=== PATIENT | female | born 1960 | race Caucasian/White ===

== ENCOUNTER → 2017-05-01 | Outpatient (CLI) | payer BC ==
[~2017-05-01] MED LIST: AMT50; ATV/1 PO; CLON1TAB3 PO; DIVA1TAB86 PO; GABA-1218 PO; LEVOTHYROXINE PO; OMEP20CA59 PO; OXYC-57 PO; PRED-301 PO; PROP80CA7 PO; [UNRECOGNIZED DRUG - OTHER]; [UNRECOGNIZED DRUG - OTHER]
--- NOTE | 2017-05-01 13:06 | MAMMOGRAPHY REPORT ---
BILATERAL DIGITAL SCREENING MAMMOGRAM TOMOSYNTHESIS WITH CAD: 05/01/2017 CLINICAL HISTORY: Routine screening. TECHNIQUE: Breast tomosynthesis in addition to standard 2D mammography was performed. Current study was also evaluated with a Computer Aided Detection (CAD) system. COMPARISON: Comparison is made to exams dated: 03/09/2016 mammogram, 03/05/2015 mammogram, 4 mammogram, 03/03/2013 mammogram, 03/01/2012 mammogram, and 03/01/2011 mammogram - [facility]. BREAST COMPOSITION: There are scattered areas of fibroglandular density in both breasts. FINDINGS: The parenchymal pattern is unchanged. No developing mass, architectural distortion or clus ter of suspicious microcalcifications is seen in either breast. IMPRESSION: ACR BI-RADS CATEGORY 2: BENIGN There is no mammographic evidence of malignancy. A 1 year screening mammogram is recommended. The pa tient will receive written notification of the results. Approximately 10% of breast cancers are not detected with mammography. A negative mammographic report should not delay biopsy if a clinically suggestive mass is present. Nohelia De La Torre M.D. ay/:05/01/2017 11:08:07 Core Shaper: Johnathan ROSAS(R)(M), [facility] letter sent: Normal 1/2 BI-RADS Code: ACR BI-RADS Category 2: Benign
== END | disposition home or self-care (01) ==
LOC: C.MAMM 08:42
DX: Z12.31 Encounter for screening mammogram for malignant neoplasm of breast (principal)

== ENCOUNTER 2022-12-22 12:32 | Inpatient (IN) ==
[2022-12-22] MEDS ORDERED: SODIUM CHLORIDE 0.9% 500 ML IV STA (12:41)
[2022-12-22] MEDS ORDERED: SODIUM CHLORIDE 0.9% 1000ML 1,000 ML IV ONE ×2 (12:48→13:22)
[2022-12-22] MEDS ORDERED: ONDANSETRON INJ 2 MG/ML 2 ML VIAL IV STA (12:54)
--- NOTE | 2022-12-22 12:59 | Emergency Department Note ---
Impression & Plan Colon perforation, Abdominal pain, Acute hypotension ED Provider Note NAME: GARCIA NUGENT AGE: 62 SEX: F : 1960 ARRIVES VIA: Walk-In INFORMANT: Patient, ED PROVIDER(S): Corbin Jeong DO CHIEF COMPLAINT: Abdominal pain HPI: The patient is a 62-year-old female who presented to the emergency department for an evaluation of abdominal pain. The patient had acute onset abdominal pain prior to arrival. She was in her normal state of health last evening. She felt a very sharp pain initially but now has a diffuse abdominal pain. She complains of dizziness. She denies having any black or tarry stools. She denies having any chest pain or difficulty breathing. She has had no fevers recently. She has no history of similar pain in the past. She was brought directly back from triage because of hypotension. ROS: See above HPI for pertinent positives & negatives. A total of 10 systems reviewed and were otherwise negative. PAST MEDICAL HISTORY: See Below PAST SURGICAL HISTORY: See Below FAMILY HISTORY: See Below SOCIAL HISTORY: See Below HOME MEDICATIONS: See Below ALLERGIES: See Below VITALS: See Below PHYSICAL EXAMINATION: GENERAL: The patient is awake and alert. She is very anxious and appears to be in severe pain. EYES: The conjunctivae are clear. The pupils are round and reactive. EARS, NOSE, MOUTH AND THROAT: The nose is without any evidence of any deformity. The patient's lips are cyanotic. NECK: The neck is nontender and supple. RESPIRATORY: Normal respiratory effort is noted there is no evidence of wheezing rhonchi or rales CARDIOVASCULAR: Regular rate and rhythm noted there no murmurs rubs or gallops normal S1 normal S2. GASTROINTESTINAL: The abdomen is distended and diffusely tender. There is guarding diffusely. MUSCULOSKELETAL/EXTREMITIES: There is no evidence of gross deformity full range of motion is noted in the hips and shoulders. SKIN: There is no obvious evidence of any rash. There are no petechiae, pallor or cyanosis noted. NEUROLOGIC: Patient is awake alert and oriented x3 strength is symmetric patellar reflexes are 2+ bilaterally MEDICAL DECISION MAKING: The patient is a 62-year-old female who presented to the emergency department for evaluation of abdominal pain. The patient was brought directly from triage to room A1. The patient was hypotensive. The patient had some constipation but over the last 24 hours developed severe abdominal pain. The patient was treated with IV fluids and IV pain medication. She was also treated with IV antibiotics for presumed surgical abdomen after physical exam. I discussed the patient's laboratory and radiographic studies with her. I discussed her condition with the on-call general surgical group. They have agreed to evaluate the patient in the emergency department. After evaluation he felt the patient would be a good candidate for surgical intervention given her presentation as well as her CT findings. Triage Nursing notes reviewed. Prior medical records reviewed Vital Signs: reviewed and remarkable for initial hypotension. Differential diagnosis: Etiologies such as appendicitis, diverticulitis, obstruction, inflammatory bowel disease, renal colic, PUD, biliary pathology, pancreatitis, mesenteric ischemia, aortic pathology, infections, genitourinary, UTI, perforated viscus, as well as others were entertained. ER treatment provided: See below Diagnostics interpreted by me: ECG: EKG was obtained in the emergency department. My interpretation is normal sinus rhythm at 74 bpm. There is no ectopy. There is no acute ST segment abnormalities noted. This was compared to a tracing from December 05, 2011. No changes were noted. Cardiac Monitoring: An order was placed for continuous cardiac monitoring. The monitor shows a rate of 87 bpm with sinus rhythm. Laboratory studies: As stated above and show below. Imaging studies: See below. Radiographic imaging was reviewed by myself Consultation(s): I discussed this case with Shanika Romero who is on-call for general surgery. He will evaluate the patient in the emergency department ED COURSE: Procedures: none Critical Care: I have personally spent greater than 35 minutes of critical care time in the direct management of this patient. This includes bedside care, interpretation of diagnostic studies, and testing, discussion with consultants, patient, and family members, and other required patient management activities. This 35 minutes is in excess of all separately billable procedures. Past Med/Surg History Medical History Anemia Asthma Brachial plexus injury, left Chiari malformation type I Decompression completed 2011 Graves' disease HTN (hypertension) Hypothyroid Migraine Mixed irritable bowel syndrome Urinary frequency Vitamin D deficiency Surgical History S/P EZE-BSO (~1997) Family History Father Myocardial infarction Bladder cancer Mother Skin cancer Alzheimer disease Denies family history of Ovarian cancer Prostate cancer Breast cancer Colorectal cancer Social History Smoking Status: Never smoker Second Hand Exposure: No; Do You Dip or Chew Tobacco: No; Hx Alcohol Use: Yes Alcohol type: beer, wine and hard liquor Alcohol Intake Frequency: 2-3 x/Week Hx Substance Use: No Preferred Language: Citizen Of [place] Communication Ability: Effective Visual Impairment: Limited Hearing Ability: Normal marital status: Current Living Situation: Spouse current occupational status: unemployed How many Children do You have: 3 Feels Safe at Home: Yes Childhood Exposure to Second-Hand Smoke: Yes caffeine: Yes (2 coffees a day ) Dental Care, Regularly: Yes Physical Activity Frequency: Daily Physical Activity Frequency Comment: walks a lot Seatbelt Use: always Sunscreen Use: No Allergies Allergies Allergy/AdvReac Type Severity Reaction Status Date / Time Sulfa (Sulfonamide Allergy Unknown severe Unverified 01/30/22 09:55 Antibiotics) headache levothyroxine AdvReac Unknown tachycardia Unverified 01/30/22 09:55 Home Meds Home Medications Medication Instructions Recorded Confirmed cholecalciferol (vitamin D3) 25 25 mcg PO DAILY 01/30/22 01/30/22 mcg (1,000 unit) chewable tablet omega-3 fatty acids-fish oil 360 1 cap PO DAILY 01/30/22 01/30/22 mg-1,200 mg capsule (Fish Oil) polysaccharide iron complex 150 mg 150 mg PO .every other day 01/30/22 01/30/22 iron capsule (Poly-Iron) turmeric root extract 500 mg 500 mg PO BID 01/30/22 01/30/22 capsule levothyroxine 25 mcg tablet 12.5 mcg PO QAM 12/22/22 12/22/22 (Synthroid) Previous Rx's Medication Instructions Recorded amitriptyline 25 mg tablet 50 mg PO HS #180 tabs 01/30/22 oxybutynin chloride 5 mg tablet 5 mg PO BID #180 tabs 01/30/22 propranolol 80 mg capsule,24 80 mg PO DAILY #90 caps 02/07/22 hr,extended release Results & Data (ED) Vital Signs Vital Signs - 24 hr 12/22/22 12:37 12/22/22 13:20 12/22/22 12:49 Temperature 36.7 C Temperature Source Temporal Artery Scan Pulse Rate 80 88 74 Pulse Rate [Apical] Pulse Rate from SpO2 Sensor 74 Respiratory Rate 20 16 Respiratory Effort / Characteristics Respiratory Depth Respiratory Pattern Blood Pressure 64/45 L 118/76 Blood Pressure [Left Arm] Blood Pressure Mean 51 90 Blood Pressure Mean [Left Arm] Blood Pressure Position [Left Arm] Pulse Oximetry 100 98 Oxygen Delivery Method Room Air Sepsis Recent Fever Within 48 Hours No Sepsis New/Unexplained Change in Mental Status N/A Sepsis Action Taken by Nursing No Action Required 12/22/22 12:57 12/22/22 13:16 12/22/22 13:30 Temperature Temperature Source Pulse Rate 80 88 91 H Pulse Rate [Apical] Pulse Rate from SpO2 Sensor 90 Respiratory Rate 21 26 H 23 Respiratory Effort / Characteristics Respiratory Depth Respiratory Pattern Blood Pressure 121/78 142/84 H 132/99 Blood Pressure [Left Arm] Blood Pressure Mean 92 103 110 Blood Pressure Mean [Left Arm] Blood Pressure Position [Left Arm] Pulse Oximetry 98 Oxygen Delivery Method Sepsis Recent Fever Within 48 Hours Sepsis New/Unexplained Change in Mental Status Sepsis Action Taken by Nursing 12/22/22 13:45 12/22/22 14:15 12/22/22 14:30 Temperature Temperature Source Pulse Rate 88 86 92 H Pulse Rate [Apical] Pulse Rate from SpO2 Sensor 88 91 H 93 H Respiratory Rate 26 H 34 H 17 Respiratory Effort / Characteristics Respiratory Depth Respiratory Pattern Blood Pressure 142/61 H 136/82 127/75 Blood Pressure [Left Arm] Blood Pressure Mean 88 100 92 Blood Pressure Mean [Left Arm] Blood Pressure Position [Left Arm] Pulse Oximetry 98 100 96 Oxygen Delivery Method Sepsis Recent Fever Within 48 Hours Sepsis New/Unexplained Change in Mental Status Sepsis Action Taken by Nursing 12/22/22 14:49 12/22/22 14:46 12/22/22 14:57 Temperature 36.9 C Temperature Source Oral Pulse Rate 91 H 87 Pulse Rate [Apical] 89 Pulse Rate from SpO2 Sensor Respiratory Rate 20 29 H 30 H Respiratory Effort / Characteristics Non-Labored Spontaneous Respiratory Depth Normal Respiratory Pattern Regular Blood Pressure 126/78 115/73 Blood Pressure [Left Arm] 126/78 Blood Pressure Mean 94 87 Blood Pressure Mean [Left Arm] 94 Blood Pressure Position [Left Arm] Semi-fowlers Pulse Oximetry 95 Oxygen Delivery Method Room Air Sepsis Recent Fever Within 48 Hours Sepsis New/Unexplained Change in Mental Status Sepsis Action Taken by [facility] Medications Current Medication List: was personally reviewed by me Laboratory Data Attestation: I reviewed the patient's lab results. 12/22/22 12:54 12/22/22 12:47 Lab Results 12/22/22 12/22/22 12/22/22 Range/Units 12:47 12:48 12:54 WBC 4.64 L (4.8-10.8) K/ul RBC 4.53 (4.20-5.40) M/uL Hgb 15.2 (12.0-16.0) g/dl POC Hgb (12.0-16.0) g/dl Hct 42.0 (37.0-47.0) % POC Hct (37-47) % MCV 92.7 (80.0-100.0) fL MCH 33.6 (25.0-34.0) pg MCHC 36.2 H (32.0-36.0) g/dL RDW Std Deviation 40.1 (36.4-46.3) fL RDW Coeff of Janie 11.9 (11.5-14.5) % Plt Count 283 (130-400) K/uL MPV 9.8 (9.4-12.4) fL Immature Gran % (Auto) 0.0 % Neut % (Auto) 79.0 % Lymph % (Auto) 14.4 % [place] % (Auto) 4.5 % Eos % (Auto) 1.9 % Baso % (Auto) 0.2 % Neut # (Auto) 3.66 (1.40-6.50) K/uL Lymph # (Auto) 0.67 L (1.2-3.4) K/uL [place] # (Auto) 0.21 (0.11-0.59) K/uL Eos # (Auto) 0.09 (0-0.50) K/uL Baso # (Auto) 0.01 (0-0.2) K/uL Immature Gran # (Auto) 0.00 L (0.01-0.20) K/uL POC Sodium (135-144) mmol/L Sodium 135 L (136-145) mmol/L POC Potassium (3.3-5.0) mmol/L Potassium 3.7 (3.5-5.1) mmol/L POC Chloride (101-112) mmol/L Chloride 98 (98-107) mmol/L Carbon Dioxide 31 (21-32) mmol/L POC Total CO2 (24-31) mmol/L Anion Gap 6 (3-11) POC Anion Gap (16-25) mmol/L POC BUN (7-18) mg/dl BUN 18 (6-23) mg/dl Creatinine 1.06 (0.6-1.2) mg/dl POC Creatinine (0.6-1.3) mg/dl Est Cr Clr Drug Dosing Not Reportable Est GFR ( Amer) 64.7 ml/min Est GFR (Non-Af Amer) 55.8 ml/min BUN/Creatinine Ratio 17.0 (10-20) Glucose 183 H (70-99(Fasting)) mg/dl POC Glucose (other) (70-99) mg/dl Lactate (0.4-2.0) mmol/L Calcium 9.7 (8.6-10.3) mg/dl POC Ioniz Calcium Joan (1.12-1.32) mmol/l Total Bilirubin 0.4 (0.2-1.0) mg/dl AST 22 (13-39) U/L ALT 25 (7-52) U/L Alkaline Phosphatase 76 (34-104) U/L Troponin I High Sens 3.0 (0-14) pg/ml Total Protein 7.4 (6.0-8.3) gm/dl Albumin 4.5 (3.4-5.0) gm/dl Globulin 2.9 (2.5-4.0) gm/dl Albumin/Globulin Ratio 1.6 (0.9-2) Lipase 18 (11-82) U/L Blood Type A Positive Blood Type Recheck Antibody Screen NEGATIVE 12/22/22 12/22/22 12/22/22 Range/Units 12:57 13:19 13:53 WBC (4.8-10.8) K/ul RBC (4.20-5.40) M/uL Hgb (12.0-16.0) g/dl POC Hgb 15.3 (12.0-16.0) g/dl Hct (37.0-47.0) % POC Hct 45 (37-47) % MCV (80.0-100.0) fL MCH (25.0-34.0) pg MCHC (32.0-36.0) g/dL RDW Std Deviation (36.4-46.3) fL RDW Coeff of Janie (11.5-14.5) % Plt Count (130-400) K/uL MPV (9.4-12.4) fL Immature Gran % (Auto) % Neut % (Auto) % Lymph % (Auto) % [place] % (Auto) % Eos % (Auto) % Baso % (Auto) % Neut # (Auto) (1.40-6.50) K/uL Lymph # (Auto) (1.2-3.4) K/uL [place] # (Auto) (0.11-0.59) K/uL Eos # (Auto) (0-0.50) K/uL Baso # (Auto) (0-0.2) K/uL Immature Gran # (Auto) (0.01-0.20) K/uL POC Sodium 136 (135-144) mmol/L Sodium (136-145) mmol/L POC Potassium 3.7 (3.3-5.0) mmol/L Potassium (3.5-5.1) mmol/L POC Chloride 96 L (101-112) mmol/L Chloride (98-107) mmol/L Carbon Dioxide (21-32) mmol/L POC Total CO2 26 (24-31) mmol/L Anion Gap (3-11) POC Anion Gap 19.0 (16-25) mmol/L POC BUN 18 (7-18) mg/dl BUN (6-23) mg/dl Creatinine (0.6-1.2) mg/dl POC Creatinine 1.1 (0.6-1.3) mg/dl Est Cr Clr Drug Dosing Est GFR ( Amer) ml/min Est GFR (Non-Af Amer) ml/min BUN/Creatinine Ratio (10-20) Glucose (70-99(Fasting)) mg/dl POC Glucose (other) 183 H (70-99) mg/dl Lactate 1.2 (0.4-2.0) mmol/L Calcium (8.6-10.3) mg/dl POC Ioniz Calcium Joan 1.22 (1.12-1.32) mmol/l Total Bilirubin (0.2-1.0) mg/dl AST (13-39) U/L ALT (7-52) U/L Alkaline Phosphatase (34-104) U/L Troponin I High Sens (0-14) pg/ml Total Protein (6.0-8.3) gm/dl Albumin (3.4-5.0) gm/dl Globulin (2.5-4.0) gm/dl Albumin/Globulin Ratio (0.9-2) Lipase (11-82) U/L Blood Type Blood Type Recheck A Positive Antibody Screen Administered Medications Fentanyl Citrate (Fentanyl Citrate Pf 100 Mcg/2 Ml Vial) 50 mcg IV Q15M PRN PRN Reason: Pain Stop: 01/05/23 12:53 Last Admin: 12/22/22 14:24 Dose: 50 mcg Documented By: Admin: 12/22/22 13:36 Dose: 50 mcg Documented By: Admin: 12/22/22 13:00 Dose: 50 mcg Documented By: MICHELLE Discontinued Medications Sodium Chloride (Nss) 500 mls @ 999 mls/hr IV .Q31M STA Stop: 12/22/22 13:11 Last Admin: 12/22/22 13:29 Dose: 999 mls/hr Documented By: MICHELLE Sodium Chloride (Nss 1000ml) 1,000 mls @ 999 mls/hr IV .Q1H1M ONE Stop: 12/22/22 13:48 Last Infusion: 12/22/22 14:02 Dose: 0 mls/hr Documented By: Admin: 12/22/22 13:01 Dose: 999 mls/hr Documented By: MICHELLE Piperacillin Sod/Tazobactam Sod (Zosyn) 4.5 gm in 120 mls @ 240 mls/hr IV NOW ONE Stop: 12/22/22 13:46 Last Infusion: 12/22/22 13:59 Dose: 0 mls/hr Documented By: Admin: 12/22/22 13:29 Dose: 240 mls/hr Documented By: MICHELLE Sodium Chloride (Nss 1000ml) 1,000 mls @ 999 mls/hr IV .Q1H1M ONE Stop: 12/22/22 14:22 Last Infusion: 12/22/22 14:30 Dose: 0 mls/hr Documented By: Admin: 12/22/22 13:29 Dose: 999 mls/hr Documented By: MICHELLE Ioversol (Optiray 320 100ml) 94 ml IV ONCE ONE Stop: 12/22/22 13:17 Last Admin: 12/22/22 13:17 Dose: 94 ml Documented By: DANE Ondansetron HCl (Ondansetron Inj 2 Mg/Ml 2 Ml Vial) 4 mg IV NOW STA Stop: 12/22/22 12:55 Last Admin: 12/22/22 13:01 Dose: 4 mg Documented By: MICHELLE Imaging Data Attestation: I personally reviewed and interpreted this imaging study as follows: My Impression: CT of the abdomen and pelvis was obtained in the emergency department. My interpretation is dilated loops of bowel with some degree of constipation, free air was noted, final report below. Radiologist's Impression: Abdomen/Pelvis CT 12/22/22 12:54 CT SCAN OF THE ABDOMEN AND PELVIS WITH IV CONTRAST CLINICAL HISTORY: Generous abdominal pain. Hypotension. Nausea. Constipation. COMPARISON STUDY: Abdominal CT dated 05/10/2018 TECHNIQUE: Following the IV administration of 94 cc of Optiray 320, CT scan of the abdomen and pelvis is performed from the lung bases to the proximal femora. Images are reviewed in the axial, sagittal, and coronal planes. IV contrast was administered without complication. A dose lowering technique was utilized adhering to the principles of ALARA. CT DOSE: 938.18 mGy.cm FINDINGS: Lung bases: The heart is normal in size and without pericardial effusion. The lung bases are clear noting dependent atelectasis. The distal esophagus is distended and filled with fluid. Liver: The contrast-enhanced liver is normal in size, contour, and attenuation. There is no intrahepatic biliary ductal dilatation. The hepatic veins and portal veins are patent. Gallbladder: Unremarkable. Spleen: Normal in size and attenuation. Pancreas: Moderately atrophic and grossly unremarkable. Adrenal glands: Unremarkable. Kidneys: The contrast enhanced kidneys are normal in size and without hydronephrosis. The kidneys enhance symmetrically. Abdominal vasculature: The abdominal aorta is normal in course and caliber noting mild atherosclerotic calcification. Bowel: There is moderate to severe constipation. There is significant wall thickening and mucosal hyperemia involving the rectosigmoid colon. There is pneumatosis of the rectosigmoid with adjacent intraperitoneal free air. Findings suggest a severe stercoral proctocolitis. Perforation is not excluded. The mesenteric vessels are patent. The appendix is well-visualized and normal. The small bowel loops are normal in caliber with no evidence of obstruction Peritoneum: There is a small volume of perihepatic and pelvic ascites. There are foci of intraperitoneal free air in the upper pelvis and around the rectosigmoid. Lymphadenopathy: None. Pelvic viscera: The bladder is normal as visualized. The uterus is surgically absent. No adnexal lesion is seen. Skeletal structures: The skeletal structures are osteopenic. There is [id number] lumbosacral spondylosis. No lytic or blastic lesions are seen. IMPRESSION: 1. Moderate to severe constipation with evidence of a severe stercoral proctocolitis. 2. There are significant pneumatosis intestinalis involving the rectosigmoid colon with adjacent foci of intraperitoneal free air. There are also foci of free air seen more superiorly in the upper pelvis. Although free air can potentially be seen with pneumatosis intestinalis, a rectosigmoid perforation is the diagnosis of exclusion. 3. Small volume abdominopelvic ascites. 4. The distal esophagus is distended and filled with fluid. Note that this may place the patient at risk for aspiration. 5. Additional findings as above. ACT 112: Negative or not required by law. Electronically signed by: Gabe Calvin M.D. 12/22/2022 1:43 PM Discharge Plan Visit Data Chief Complaint: Abdominal Pain Stated Complaint: ABD PAIN,LIGHTHEADED,NAUSEA ED Provider: Corbin Jeong Discharge Problem: Colon perforation, Abdominal pain, Acute hypotension Patient Disposition: Being Evaluated by Surgeon Discharge Instructions Interventions: ED Discharge Assessment Last Done: 12/22/22 15:03
[2022-12-22] MEDS: fentaNYL citrate PF 100 MCG/2 ML VIAL IV PRN ×5 (13:00→17:45)
[2022-12-22 13:09] LABS: iSTAT Creatinine 1.1 mg/dl (0.6-1.3); iSTAT Hemoglobin 15.3 g/dl (12.0-16.0); iSTAT Ionized Calcium 1.22 mmol/l (1.12-1.32); iSTAT Potassium 3.7 mmol/L (3.3-5.0)
[2022-12-22] MEDS ORDERED: OPTIRAY 320 100ml IV ONE (13:16)
[2022-12-22] MEDS ORDERED: PIPERACILLIN/TAZOBACTAM 4.5 GM/120 ML BAG IV ONE (13:17)
[2022-12-22 13:18] LABS: Basophils # (auto) 0.01 K/uL (0-0.2); Basophils % (auto) 0.2 %; Eosinophils # (auto) 0.09 K/uL (0-0.50); Eosinophils % (auto) 1.9 %; Hemoglobin 15.2 g/dl (12.0-16.0); Lymphocytes # (auto) 0.67 K/uL (1.2-3.4); Lymphocytes % (auto) 14.4 %; Mean Corpuscular Hemoglobin 33.6 pg (25.0-34.0); Mean Corpuscular Hgb Conc 36.2 g/dL (32.0-36.0); Mean Corpuscular Volume 92.7 fL (80.0-100.0); Mean Platelet Volume 9.8 fL (9.4-12.4); Monocytes # (auto) 0.21 K/uL (0.11-0.59); Monocytes % (auto) 4.5 %; Neutrophils # (auto) 3.66 K/uL (1.40-6.50); Platelet Count 283 K/uL (130-400); RDW Coefficient of Variation 11.9 % (11.5-14.5); RDW Standard Deviation 40.1 fL (36.4-46.3); Red Blood Count 4.53 M/uL (4.20-5.40); White Blood Count 4.64 K/ul (4.8-10.8)
[2022-12-22 13:31] LABS: Alanine Aminotransferase 25 U/L (7-52); Albumin Globulin Ratio 1.6 (0.9-2); Albumin Level 4.5 gm/dl (3.4-5.0); Alkaline Phosphatase 76 U/L (34-104); Anion Gap 6 (3-11); Aspartate Aminotransferase 22 U/L (13-39); Bilirubin,Total 0.4 mg/dl (0.2-1.0); Blood Urea Nitrogen 18 mg/dl (6-23); Calcium 9.7 mg/dl (8.6-10.3); Carbon Dioxide 31 mmol/L (21-32); Chloride 98 mmol/L (98-107); Est GFR (African American) 64.7 ml/min; Est GFR (Non-African American) 55.8 ml/min; Globulin 2.9 gm/dl (2.5-4.0); Glucose 183 mg/dl (70-99(Fasting)); Lipase 18 U/L (11-82); Potassium 3.7 mmol/L (3.5-5.1); Sodium 135 mmol/L (136-145); Total Protein 7.4 gm/dl (6.0-8.3)
--- NOTE | 2022-12-22 13:46 | CT Scan Report ---
CT SCAN OF THE ABDOMEN AND PELVIS WITH IV CONTRAST CLINICAL HISTORY: Generous abdominal pain. Hypotension. Nausea. Constipation. COMPARISON STUDY: Abdominal CT dated 05/10/2018 TECHNIQUE: Following the IV administration of 94 cc of Optiray 320, CT scan of the abdomen and pelvi s is performed from the lung bases to the proximal femora. Images are reviewed in the axial, sagittal , and coronal planes. IV contrast was administered without complication. A dose lowering technique wa s utilized adhering to the principles of ALARA. CT DOSE: 938.18 mGy.cm FINDINGS: Lung bases: The heart is normal in size and without pericardial effusion. The lung bases are clear no ting dependent atelectasis. The distal esophagus is distended and filled with fluid. Liver: The contrast-enhanced liver is normal in size, contour, and attenuation. There is no intrahepa tic biliary ductal dilatation. The hepatic veins and portal veins are patent. Gallbladder: Unremarkable. Spleen: Normal in size and attenuation. Pancreas: Moderately atrophic and grossly unremarkable. Adrenal glands: Unremarkable. Kidneys: The contrast enhanced kidneys are normal in size and without hydronephrosis. The kidneys enh ance symmetrically. Abdominal vasculature: The abdominal aorta is normal in course and caliber noting mild atheroscleroti c calcification. Bowel: There is moderate to severe constipation. There is significant wall thickening and mucosal hyp eremia involving the rectosigmoid colon. There is pneumatosis of the rectosigmoid with adjacent intra peritoneal free air. Findings suggest a severe stercoral proctocolitis. Perforation is not excluded. The mesenteric vessels are patent. The appendix is well-visualized and normal. The small bowel loops are normal in caliber with no evidence of obstruction Peritoneum: There is a small volume of perihepatic and pelvic ascites. There are foci of intraperiton eal free air in the upper pelvis and around the rectosigmoid. Lymphadenopathy: None. Pelvic viscera: The bladder is normal as visualized. The uterus is surgically absent. No adnexal lesi on is seen. Skeletal structures: The skeletal structures are osteopenic. There is [id number] lumbosacral sp ondylosis. No lytic or blastic lesions are seen. IMPRESSION: 1. Moderate to severe constipation with evidence of a severe stercoral proctocolitis. 2. There are significant pneumatosis intestinalis involving the rectosigmoid colon with adjacent foci of intraperitoneal free air. There are also foci of free air seen more superiorly in the upper pelvi s. Although free air can potentially be seen with pneumatosis intestinalis, a rectosigmoid perforatio n is the diagnosis of exclusion. 3. Small volume abdominopelvic ascites. 4. The distal esophagus is distended and filled with fluid. Note that this may place the patient at r isk for aspiration. 5. Additional findings as above. ACT 112: Negative or not required by law. Electronically signed by: Gabe Calvin M.D. 12/22/2022 1:43 PM
--- NOTE | 2022-12-22 14:35 | History & Physical Report ---
Date of Service December 22, 2022 Assessment & Plan (1) Pneumatosis intestinalis of large intestine: Plan: This is a 62yF with a PMH of HTN, fibromyalgia, chiari malformation, hypothyroid, who presents to the [facility] ED on 12/22/22 with complaints of acute onset abdominal pain that started this AM after giving herself an enema. Her pain is throughout the abdomen and she rates it a 10/10 in severity. In the ER she underwent a CT a/p that revealed "moderate to severe constipation with evidence of a severe stercoral proctocolitis, along with significant pneumatosis intestinalis involving the rectosigmoid colon with adjacent foci of intraperitoneal free air. There are also foci of free air seen more superiorly in the upper pelvis. Although free air can potentially be seen with pneumatosis intestinalis, a rectosigmoid perforation is the diagnosis of exclusion." Patient was initially found to be hypotensive in the ER to 60/40s that has improved with IVF resuscitation. Otherwise HRs 80s and she is afebrile. WBC 4, Hbg 15, lactate 1.2, Cr 1. On exam patient appears in distress secondary to pain. Her abdomen is distended, with tenderness throughout and + guarding. Giving history/exam and clinical findings on CT scan we will proceed with taking her to the OR for e xploratory laparotomy, with possible bowel resection and colostomy formation. Dr. Santoyo will obtain consent as above. pt with acute pain after giving herself an enema. pt with guarding/rebound and free air on ct. discussed options/risks ( bleeding/infection/injury to other organs/dvt/pe/mi/cva etc...). will almost certainly require a diverting stoma. questions answered. she is agreeable. will proceed with ex-lap, bowel resection, possible colostomy, surgery as needed. History of Present Illness Primary Care Provider: Karl Fu, This is a 62yF with a PMH of HTN, fibromyalgia, chiari malformation, hypothyroid, who presents to the [facility] ED on 12/22/22 with complaints of acute onset abdominal pain that started this AM. She states the pain started around 9:30 AM. She felt some pressure around her rectal area and was not sure if she was constipated or it was due to hemorrhoids, but she gave herself and enema. After this she had worsening pain throughout her abdomen, no where in specific. She rates the pain a 10/10 in severity. She reports + nausea and small amount of emesis with this. Has some CP and SOB related to pain. + headaches. In the ER she underwent a CT a/p that revealed "moderate to severe constipation with evidence of a severe stercoral proctocolitis, along with significant pneumatosis intestinalis involving the rectosigmoid colon with adjacent foci of intraperitoneal free air. There are also foci of free air seen more superiorly in the upper pelvis. Although free air can potentially be seen with pneumatosis intestinalis, a rectosigmoid perforation is the diagnosis of exclusion." Patient did have a BM this AM. She has a past surgical history of 3 c-sections, hysterectomy, and tubal ligation. last had some cereal around 8:30am. Allergies Allergy/AdvReac Type Severity Reaction Status Date / Time Sulfa (Sulfonamide Allergy Unknown severe Unverified 01/30/22 09:55 Antibiotics) headache levothyroxine AdvReac Unknown tachycardia Unverified 01/30/22 09:55 Home Medications Medication Instructions Recorded Confirmed Type amitriptyline 25 mg tablet 50 mg PO HS #180 tabs 01/30/22 12/22/22 Rx cholecalciferol (vitamin D3) 25 25 mcg PO DAILY 01/30/22 01/30/22 History mcg (1,000 unit) chewable tablet omega-3 fatty acids-fish oil 360 1 cap PO DAILY 01/30/22 01/30/22 History mg-1,200 mg capsule (Fish Oil) oxybutynin chloride 5 mg tablet 5 mg PO BID #180 tabs 01/30/22 12/22/22 Rx polysaccharide iron complex 150 mg 150 mg PO .every other day 01/30/22 01/30/22 History iron capsule (Poly-Iron) turmeric root extract 500 mg 500 mg PO BID 01/30/22 01/30/22 History capsule propranolol 80 mg capsule,24 80 mg PO DAILY #90 caps 02/07/22 12/22/22 Rx hr,extended release levothyroxine 25 mcg tablet 12.5 mcg PO QAM 12/22/22 12/22/22 History (Synthroid) Past Med/Surg History Medical History Anemia Asthma Brachial plexus injury, left Chiari malformation type I Decompression completed 2011 Graves' disease HTN (hypertension) Hypothyroid Migraine Mixed irritable bowel syndrome Urinary frequency Vitamin D deficiency Surgical History S/P EZE-BSO (~1997) Family History Father Myocardial infarction Bladder cancer Mother Skin cancer Alzheimer disease Denies family history of Ovarian cancer Prostate cancer Breast cancer Colorectal cancer Social History Smoking Status: Never smoker Second Hand Exposure: No; Do You Dip or Chew Tobacco: No; Hx Alcohol Use: Yes Alcohol type: beer, wine and hard liquor Alcohol Intake Frequency: 2-3 x/Week Hx Substance Use: No Preferred Language: Slovenian Communication Ability: Effective Visual Impairment: Limited Hearing Ability: Normal marital status: Current Living Situation: Spouse current occupational status: unemployed How many Children do You have: 3 Feels Safe at Home: Yes Childhood Exposure to Second-Hand Smoke: Yes caffeine: Yes (2 coffees a day ) Dental Care, Regularly: Yes Physical Activity Frequency: Daily Physical Activity Frequency Comment: walks a lot Seatbelt Use: always Sunscreen Use: No Review of Systems Constitutional: + chills; no fever Respiratory: some shortness of breath and chest discomfort 2/2 abdominal pain Gastrointestinal: + abdominal pain (throughout), + bloating, + nausea, + vomiting and + constipation Neurologic: + headache(s) Physical Exam Physical Exam: awake/alert, appears in distress 2/2 pain Constitutional: well developed and well nourished Respiratory: saturating well on room air Cardiovascular: Rate/Rhythm: regular rate Gastrointestinal (Abdomen): Inspection/Auscultation: + abdomen distended Percussion/Palpation: + abdomen tender (tenderness throughout abdomen) and + guarding (in b/l lower quadrants) Results & Data Results & Data Vital Signs (Past 12 Hours) Vital Signs Temp Pulse Resp BP Pulse Ox O2 Del Method 12/22/22 13:45 88 26 H 142/61 H 98 12/22/22 13:30 91 H 23 132/99 98 12/22/22 13:16 88 26 H 142/84 H 12/22/22 12:57 80 21 121/78 12/22/22 12:49 74 16 118/76 98 12/22/22 13:20 88 12/22/22 12:37 36.7 C 80 20 64/45 L 100 Room Air Diagnostic Findings CT SCAN OF THE ABDOMEN AND PELVIS WITH IV CONTRAST CLINICAL HISTORY: Generous abdominal pain. Hypotension. Nausea. Constipation. COMPARISON STUDY: Abdominal CT dated 05/10/2018 TECHNIQUE: Following the IV administration of 94 cc of Optiray 320, CT scan of the abdomen and pelvis is performed from the lung bases to the proximal femora. Images are reviewed in the axial, sagittal, and coronal planes. IV contrast was administered without complication. A dose lowering technique was utilized adhering to the principles of ALARA. CT DOSE: 938.18 mGy.cm FINDINGS: Lung bases: The heart is normal in size and without pericardial effusion. The lung bases are clear noting dependent atelectasis. The distal esophagus is distended and filled with fluid. Liver: The contrast-enhanced liver is normal in size, contour, and attenuation. There is no intrahepatic biliary ductal dilatation. The hepatic veins and portal veins are patent. Gallbladder: Unremarkable. Spleen: Normal in size and attenuation. Pancreas: Moderately atrophic and grossly unremarkable. Adrenal glands: Unremarkable. Kidneys: The contrast enhanced kidneys are normal in size and without hy dronephrosis. The kidneys enhance symmetrically. Abdominal vasculature: The abdominal aorta is normal in course and caliber noting mild atherosclerotic calcification. Bowel: There is moderate to severe constipation. There is significant wall thickening and mucosal hyperemia involving the rectosigmoid colon. There is pneumatosis of the rectosigmoid with adjacent intraperitoneal free air. Findings suggest a severe stercoral proctocolitis. Perforation is not excluded. The mesenteric vessels are patent. The appendix is well-visualized and normal. The small bowel loops are normal in caliber with no evidence of obstruction Peritoneum: There is a small volume of perihepatic and pelvic ascites. There are foci of intraperitoneal free air in the upper pelvis and around the rectosigmoid. Lymphadenopathy: None. Pelvic viscera: The bladder is normal as visualized. The uterus is surgically absent. No adnexal lesion is seen. Skeletal structures: The skeletal structures are osteopenic. There is [id number] lumbosacral spondylosis. No lytic or blastic lesions are seen. IMPRESSION: 1. Moderate to severe constipation with evidence of a severe stercoral proctocolitis. 2. There are significant pneumatosis intestinalis involving the rectosigmoid colon with adjacent foci of intraperitoneal free air. There are also foci of free air seen more superiorly in the upper pelvis. Although free air can potentially be seen with pneumatosis intestinalis, a rectosigmoid perforation is the diagnosis of exclusion. 3. Small volume abdominopelvic ascites. 4. The distal esophagus is distended and filled with fluid. Note that this may place the patient at risk for aspiration. 5. Additional findings as above. ACT 112: Negative or not required by law. Electronically signed by: Gabe Calvin M.D. 12/22/2022 1:43 PM PG Care Time/CCT Total # of Minutes Spent Total Time Spent with Patient: Total time spent is greater than 50% in coordination of care (as documented) at patient's floor/unit and/or counseling patient: Coding Level of Care Code 31276 INT INP/OBS CARE 2/55MIN Diagnoses Pneumatosis intestinalis of large intestine K63.89
[2022-12-22] MEDS ORDERED: fentaNYL citrate PF 100 MCG/2 ML VIAL ONE ×2 (14:43→15:49)
[2022-12-22] MEDS ORDERED: PROPOFOL IV EMULSION 10 MG/ML 20 ML VIAL IV ONE (14:43)
[2022-12-22] MEDS ORDERED: ROCURONIUM BROMIDE 10 MG/ML 5 ML VIAL IV ONE (14:43)
[2022-12-22] MEDS ORDERED: SUCCINYLCHOLINE CHLORIDE 20 MG/ML 10 ML VIAL IV ONE (14:43)
[2022-12-22] MEDS ORDERED: LIDOCAINE 2% 2 ML VIAL/AMP(20MG/ML) INFIL ONE (14:43)
[2022-12-22] MEDS ORDERED: DEXAMETHASONE SOD INJ 4 MG/ML VIAL ONE (14:44)
[2022-12-22] MEDS ORDERED: ONDANSETRON INJ 2 MG/ML 2 ML VIAL ONE (14:44)
--- NOTE | 2022-12-22 15:07 | Anesthesiology Consultation ---
Date of Service December 22, 2022 Assessment & Plan Chart Review Chart Review: Acceptable Risk for Surgery Consults Requested none History Surgery Operation Date: 12/22/22 13:10 Proposed Procedures p Exploratory Laparotomy with Cholostomy - Humphrey Santoyo DO Height/Weight Height: 5 ft 9.5 in Weight: 63.9 kg Allergies Allergy/AdvReac Type Severity Reaction Status Date / Time Sulfa (Sulfonamide Allergy Unknown severe Unverified 01/30/22 09:55 Antibiotics) headache levothyroxine AdvReac Unknown tachycardia Unverified 01/30/22 09:55 Medications Home Medications Medication Instructions Recorded Confirmed Last Taken amitriptyline 25 mg tablet 50 mg PO HS #180 tabs 01/30/22 12/22/22 Unknown cholecalciferol (vitamin D3) 25 25 mcg PO DAILY 01/30/22 01/30/22 Unknown mcg (1,000 unit) chewable tablet omega-3 fatty acids-fish oil 360 1 cap PO DAILY 01/30/22 01/30/22 Unknown mg-1,200 mg capsule (Fish Oil) oxybutynin chloride 5 mg tablet 5 mg PO BID #180 tabs 01/30/22 12/22/22 Unknown polysaccharide iron complex 150 mg 150 mg PO .every other day 01/30/22 01/30/22 Unknown iron capsule (Poly-Iron) turmeric root extract 500 mg 500 mg PO BID 01/30/22 01/30/22 Unknown capsule propranolol 80 mg capsule,24 80 mg PO DAILY #90 caps 02/07/22 12/22/22 Unknown hr,extended release levothyroxine 25 mcg tablet 12.5 mcg PO QAM 12/22/22 12/22/22 Unknown (Synthroid) Active Medications Generic Name Dose Route Start Last Admin Trade Name Freq PRN Reason Stop Dose Admin Fentanyl Citrate 50 mcg 12/22/22 12:54 12/22/22 14:24 Fentanyl Citrate Pf 100 Mcg/2 Ml Vial IV 01/05/23 12:53 50 mcg Q15M PRN Administration Pain NPO Date Last Intake of Fluids: 12/22/22 Time Last Intake of Fluids: 12:30 Last Intake of Fluids Comment: sips water, coffee at 0730 Date Last Intake of Solids: 12/22/22 Time Last Intake of Solids: 08:30 Past Medical History Medical History Anemia Asthma Brachial plexus injury, left Chiari malformation type I Decompression completed 2011 Graves' disease HTN (hypertension) Hypothyroid Migraine Mixed irritable bowel syndrome Urinary frequency Vitamin D deficiency Past Family History Family History Father Myocardial infarction Bladder cancer Mother Skin cancer Alzheimer disease Denies family history of Ovarian cancer Prostate cancer Breast cancer Colorectal cancer Past Surgical History Surgical History S/P EZE-BSO (~1997) Social History Smoking Status: Never smoker Do You Dip or Chew Tobacco: No Hx Alcohol Use: Yes Alcohol type: beer, wine and hard liquor Hx Substance Use: No Physical Exam Vital Signs Last Vital Signs Temp 36.9 C 12/22/22 14:49 Pulse 87 12/22/22 14:57 Resp 30 H 12/22/22 14:57 BP 115/73 12/22/22 14:57 Pulse Ox 95 12/22/22 14:49 O2 Del Method Room Air 12/22/22 14:49 Testing Laboratory Results 12/22/22 12:54 12/22/22 12:47 12/22/22 12:57 POC Glucose (other) 183 H
[2022-12-22] MEDS ORDERED: MIDAZOLAM HCL 1 MG/ML 2ML VIAL ONE (15:08)
[2022-12-22] MEDS ORDERED: PROMETHAZINE HCL 12.5 MG in SODIUM CHLORIDE 0.9% 50 ML IV PRN (15:09)
[2022-12-22] MEDS ORDERED: ONDANSETRON INJ 2 MG/ML 2 ML VIAL IV PRN (15:09)
[2022-12-22] MEDS ORDERED: ePHEDrine sulfate 50 MG/ML AMP IV PRN (15:09)
[2022-12-22] MEDS ORDERED: HYDROmorphone INJ 2 MG/ML SYR/VIAL IV PRN (15:09)
[2022-12-22] MEDS ORDERED: ATROPINE SULFATE 0.1 MG/ML 10ML SYR IV PRN (15:09)
[2022-12-22] MEDS ORDERED: KETAMINE 50 MG/5 ML SYRINGE ONE (16:25)
[2022-12-22] MEDS ORDERED: SUGAMMADEX SODIUM 200 MG/2 ML VIAL IV ONE (16:45)
[2022-12-22] MEDS ORDERED: ePHEDrine sulfate 50 MG/ML AMP ONE (16:48)
[2022-12-22] MEDS ORDERED: PHENYLEPHRINE HCL 10 MG/ML VIAL ONE (16:48)
[2022-12-22] MEDS ORDERED: SODIUM CHLORIDE 0.9% PF INJ 10 ML VIAL ONE (16:48)
[2022-12-22] MEDS ORDERED: MoRPHine SULFATE 2 MG/ML CARP IV PRN (17:06)
--- NOTE | 2022-12-22 17:46 | Operative Report ---
PG Post Operative Report Pre & Post Diagnosis Operation Date: 12/22/22 13:10 Pre-Op Diagnosis: Pneumatosis intestinalis of large intestine with perforation Post-Op Diagnosis: Pneumatosis intestinalis of large intestine with perforation I identified the patient and participated in the time-out.: Yes Procedure Operation Date: 12/22/22 13:10 Actual Procedures p Exploratory laparotomy, sigmoid colectomy, abdominal washout, colostomy - Humphrey Santoyo DO Surgeon Humphrey Santooy DO Aoc Director Intelligence Officer Jordon ALMEIDA Estimated Blood Loss 50 Findings Consistent with Post-Op Diagnosis Specimens sigmoid colon fluid for culture Description of Procedure After informed consent was obtained the patient was taken to the operating room and placed in supine position. After successful intubation a Rios catheter and nasogastric tube were placed. The abdomen was sterilely prepped and draped in usual fashion. I made an incision vertically on the midline from above the umbilicus down to the pubic symphysis. This was carried down through soft tissue using cautery. Anterior fascia was opened using cautery as well. Blunt finger penetration was used to enter the peritoneum. The incision was opened to both poles using cautery. Once entering the abdomen there was a moderate amount of murky fluid. We did take a sample and sent for Gram stain culture and sensitivity. We manually explored the abdomen. Her entire colon from cecum to rectum was filled with hard pebble-like stool. I followed the colon down to the rectosigmoid where we found a perforation with probably an egg sized piece of stool laying in the pelvis through a perforation. I began by transecting the rectosigmoid distal to this perforation using a DA purple cartridge linear stapler. We then mobilized the sigmoid colon along the white line of Toldt. I picked a portion of colon that was very mobile and transected this with a DA purple cartridge stapler as well. I took down the mesentery using LigaSure device. Sigmoid colon was passed off to pathology. The free stool floating in the pelvis was removed as well. There was a mild to moderate amount of stool staining in the pelvis. We thoroughly irrigated the entire abdomen with about 4 or 5 L of warm irrigation. I examined the colon from the cecum over to the staple line and there were no other areas of perforation. Small bowel appeared normal as well. I verified NG tube placement in the distal stomach manually. Next we created a circular opening in the left lower quadrant. This was carried down through soft tissue using cautery. A cruciate incision was made on the fascia and the peritoneum opened as well. A [place] clamp was placed through this wound and used to pull the staple line of the colon out without difficulty. A final look around the abdomen showed no other abnormalities. A separate stab incision in the right lower quadrant was made and a 19 Dutch Ghanshyam drain was placed through that into the pelvis and secured to the skin using 2-0 nylon. The fascia was closed using 1 PDS starting either pole running them and securing them together in the midline. Soft tissue was irrigated. The skin was closed using skin evelina over 1/4 inch Hart[place] drain. Silver dressing gauze and tape were placed over the midline incision. Finally I matured the colostomy in Broo ke fashion using 3-0 Monocryl. An appliance was placed. The patient was awakened extubated and transferred to recovery in guarded condition. My nurse practitioner was present for the entire case was instrumental in providing exposure assisting with the colon resection stoma formation wound closure and dressing placement. I attest to the content of the Intraoperative Record and any orders documented therein. Any exceptions are noted below.
--- NOTE | 2022-12-22 17:52 | Electrocardiogram Report ---
Test Reason : Blood Pressure : / mmHG Vent. Rate : 074 BPM Atrial Rate : 074 BPM P-R Int : 180 ms QRS Dur : 088 ms QT Int : 396 ms P-R-T Axes : 075 041 059 degrees QTc Int : 439 ms Normal sinus rhythm Normal ECG When compared with ECG of 05-DEC-2011 12:58, T wave inversion now evident in Anterior leads Confirmed by Dontrell Madison ([id number]) on 12/22/2022 5:52:27 PM Referred By: REFERRED SELF Confirmed By:Dandre Madison
--- NOTE | 2022-12-22 18:43 | Anesthesiology Progress Note ---
Date of Service December 22, 2022 Anesthesia Post Procedure Vital Signs Vital Signs: Temp Pulse Pulse Resp BP BP Pulse Ox 12/22/22 18:00 72 18 119/68 97 12/22/22 17:37 84 12/22/22 18:20 72 18 111/65 94 12/22/22 18:10 97.3 F L 73 17 122/70 96 12/22/22 17:50 76 23 116/69 96 12/22/22 17:40 79 16 118/79 95 12/22/22 17:30 97.7 F 86 20 124/75 92 12/22/22 14:57 87 30 H 115/73 12/22/22 14:46 91 H 29 H 126/78 12/22/22 14:49 98.4 F 89 20 126/78 95 12/22/22 14:30 92 H 17 127/75 96 12/22/22 14:15 86 34 H 136/82 100 12/22/22 13:45 88 26 H 142/61 H 98 12/22/22 13:30 91 H 23 132/99 98 12/22/22 13:16 88 26 H 142/84 H 12/22/22 12:57 80 21 121/78 12/22/22 12:49 74 16 118/76 98 12/22/22 13:20 88 12/22/22 12:37 98.1 F 80 20 64/45 L 100 O2 Del Method O2 Flow Rate 12/22/22 18:00 Oxymask 5 12/22/22 17:37 12/22/22 18:20 Nasal Cannula 2 12/22/22 18:10 Oxymask 2 12/22/22 17:50 Oxymask 5 12/22/22 17:40 Oxymask 5 12/22/22 17:30 Oxymask 5 12/22/22 14:57 12/22/22 14:46 12/22/22 14:49 Room Air 12/22/22 14:30 12/22/22 14:15 12/22/22 13:45 12/22/22 13:30 12/22/22 13:16 12/22/22 12:57 12/22/22 12:49 12/22/22 13:20 12/22/22 12:37 Room Air Pain Intensity Abdomen: Pain Intensity: 4 Transfer of Care Handoff Completed per policy Notes Mental Status: alert / awake / arousable and participated in evaluation Patient Amnestic to Procedure: Yes Nausea / Vomiting: adequately controlled Pain: adequately controlled and improving with treatment Airway Patency, RR, SpO2: stable & adequate BP & HR: stable & adequate Hydration State: stable & adequate Anesthetic Complications: no major complications apparent and Pt Satisfied with anesthetic care
[2022-12-22] MEDS: MoRPHine SULFATE 4 MG/ML 1 ML CARP\\VIAL IV PRN ×2 (19:14→22:02)
[2022-12-22] MEDS: ACETAMINOPHEN 1,000 MG/100 ML VIAL IV SCH (19:14)
[2022-12-22] MEDS: ONDANSETRON INJ 2 MG/ML 2 ML VIAL IV PRN (19:14)
[2022-12-22] MEDS: LACTATED RINGER'S 1,000 ML IV SCH (19:19)
--- NOTE | 2022-12-22 19:33 | Hospitalist Consultation ---
Date of Consultation December 22, 2022 Assessment & Plan (1) Colon perforation: -Pt with acute abdomen from stercoral proctocolitis 2/2 severe constipation + rectosigmoid pneumatosis intestinalis w/ perforation s/p exploratory laparotomy, abdominal washout, sigmoid colectomy and colostomy, POD0 -Pt hemodynamically stable postoperatively -Agree with Zosyn for now, appropriate Gram negative + anaerobic coverage -Awaiting OR abdominal fluid cultures, will tailor per sensitivities -Zofran PRN nausea -Pain regimen -Scheduled Tylenol IV 1000 mg q8h -Morphine PRN -Avoiding NSAIDs in setting of recent perforation -Low threshold to repeat CTAP if pt clinically deteriorates -General surgery continuing to follow as primary (2) Acute hypotension: -BP 64/45 in ER secondary to acute abdomen 2/2 colonic perforation, received significant fluid resuscitation in ER but did not require pressors -Resolved, BP currently stable -Pt on mIVF LR 150 cc/hr -Will carefully monitor, holding home propranolol + oxybutynin at present -Can resume medications as able pending BP stability but will continue to hold in immediate postoperative period (3) Anemia: -Hgb 15.2, stable -Trend CBC (4) HTN (hypertension): -BP stable at present -Holding propranolol in light of recent hypotension and surgery, can resume as able pending BP stability (5) Fibromyalgia: -Continue amitryptiline (6) Hypothyroid: -Continue levothyroxine (7) Urinary frequency: -Maintain Rios catheter -Holding oxybutynin in light of recent hypotension and surgery, can resume pending BP stability Plan FENGI: NPO, LR 150 cc/hr Code status: Full DVT prophylaxis: SCDs, holding chemoprophylaxis after surgery Isolation: None Disposition: Medical/surgical Hospitalist team will continue to follow. History of Present Illness Reason for Consultation: Postoperative management Requesting Physician: ELLE Villarreal Attending Physician: Humphrey Santoyo DO History of Present Illness 62 yo F with PMH HTN, fibromyalgia, hypothyroidism, overactive bladder who presented to ED for abdominal pain, now s/p exploratory laparotomy for pneumatosis intestinalis of large intestine with perforation. Hospitalist consulted for postoperative management. Pt presented to ED for acute onset generalized abdominal pain greatest in lower abdomen that started around 9:30 AM. She attempted to give herself an enema but noticed worsening abdominal pain with 10/10 severity afterward along with associated NBNB emesis + persistent nausea. Arrived to ER hypotensive 64/45, received IV fluid resuscitation of total 2.5L NSS, Zofran and Zosyn. No significant lab abnormalities. CTAP demonstrated severe constipation w/ stercoral proctocolitis w/ significant pneumatosis intestinalis involving rectosigmoid colon w/ foci of intraperitoneal free air. She was seen by general surgery who took her to OR for exploratory laparotomy, abdominal washout, sigmoid colectomy and colostomy. Upon my evaluation, pt reports continued abdominal pain and nausea but no new complaints. Rates pain as similar and 10/10 though she did receive pain medic ation very shortly prior to my evaluation. She did receive Tylenol 1000 mg IV, Zofran 4 mg IV, morphine 4 mg IV and LR 150 cc/hr at maintenance in her postoperative course. Allergies Allergy/AdvReac Type Severity Reaction Status Date / Time Sulfa (Sulfonamide Allergy Unknown severe Unverified 01/30/22 09:55 Antibiotics) headache levothyroxine AdvReac Unknown tachycardia Unverified 01/30/22 09:55 Home Medications Medication Instructions Recorded Confirmed Type amitriptyline 25 mg tablet 50 mg PO HS #180 tabs 01/30/22 12/22/22 Rx cholecalciferol (vitamin D3) 25 25 mcg PO DAILY 01/30/22 01/30/22 History mcg (1,000 unit) chewable tablet omega-3 fatty acids-fish oil 360 1 cap PO DAILY 01/30/22 01/30/22 History mg-1,200 mg capsule (Fish Oil) oxybutynin chloride 5 mg tablet 5 mg PO BID #180 tabs 01/30/22 12/22/22 Rx polysaccharide iron complex 150 mg 150 mg PO .every other day 01/30/22 01/30/22 History iron capsule (Poly-Iron) turmeric root extract 500 mg 500 mg PO BID 01/30/22 01/30/22 History capsule propranolol 80 mg capsule,24 80 mg PO DAILY #90 caps 02/07/22 12/22/22 Rx hr,extended release levothyroxine 25 mcg tablet 12.5 mcg PO QAM 12/22/22 12/22/22 History (Synthroid) Patient History Medical History Anemia Asthma Brachial plexus injury, left Chiari malformation type I Decompression completed 2011 Graves' disease HTN (hypertension) Hypothyroid Migraine Mixed irritable bowel syndrome Urinary frequency Vitamin D deficiency Surgical History S/P EZE-BSO (~1997) Family History Father Myocardial infarction Bladder cancer Mother Skin cancer Alzheimer disease Denies family history of Ovarian cancer Prostate cancer Breast cancer Colorectal cancer Social History Smoking Status: Never smoker Second Hand Exposure: No; Do You Dip or Chew Tobacco: No; Hx Alcohol Use: Yes Alcohol type: beer, wine and hard liquor Alcohol Intake Frequency: 2-3 x/Week Hx Substance Use: No Preferred Language: Slovak Communication Ability: Effective Visual Impairment: Limited Hearing Ability: Normal marital status: Current Living Situation: Spouse current occupational status: unemployed How many Children do You have: 3 Feels Safe at Home: Yes Childhood Exposure to Second-Hand Smoke: Yes caffeine: Yes (2 coffees a day ) Dental Care, Regularly: Yes Physical Activity Frequency: Daily Physical Activity Frequency Comment: walks a lot Seatbelt Use: always Sunscreen Use: No Review of Systems Review of Systems: Per HPI Physical Exam Physical Exam: General: tired-appearing, no acute distress HEENT: PERRL, EOMI, conjunctivae clear without injection, anicteric sclerae, moist mucous membranes, clear oropharynx without exudate or erythema Neck: supple, trachea midline, no thyromegaly, no JVD, no cervical lymphadenopathy CV: RRR, normal S1 and S2, no murmurs Resp: CTAB, no increased work of breathing, no crackles or wheezes Abd: Soft, dressing intact with no surrounding erythema, bleeding or drainage. Ostomy with scant brown stool output. Tender to minimal palpation over dressing but no distension, guarding or rebound MSK: Normal bulk of all four extremities Neuro: AOx3, no focal motor or sensory deficits Skin: no rashes or lesions, warm and dry Ext: no LE peripheral edema or erythema, capillary refill <2s in all four extremities, 2+ LE peripheral pulses b/l Results & Data Results & Data Vital Signs (Past 12 Hours) Vital Signs Temp Pulse Pulse Pulse Resp BP BP 12/22/22 18:47 35.9 C L 79 18 111/74 12/22/22 18:00 72 18 119/68 12/22/22 17:37 84 12/22/22 18:20 72 18 111/65 12/22/22 18:10 36.3 C L 73 17 122/70 12/22/22 17:50 76 23 116/69 12/22/22 17:40 79 16 118/79 12/22/22 17:30 36.5 C 86 20 124/75 12/22/22 14:57 87 30 H 115/73 12/22/22 14:46 91 H 29 H 126/78 12/22/22 14:49 36.9 C 89 20 126/78 12/22/22 14:30 92 H 17 127/75 12/22/22 14:15 86 34 H 136/82 12/22/22 13:45 88 26 H 142/61 H 12/22/22 13:30 91 H 23 132/99 12/22/22 13:16 88 26 H 142/84 H 12/22/22 12:57 80 21 121/78 12/22/22 12:49 74 16 118/76 12/22/22 13:20 88 12/22/22 12:37 36.7 C 80 20 64/45 L Pulse Ox O2 Del Method O2 Flow Rate 12/22/22 18:47 97 Room Air 12/22/22 18:00 97 Oxymask 5 12/22/22 17:37 12/22/22 18:20 94 Nasal Cannula 2 12/22/22 18:10 96 Oxymask 2 12/22/22 17:50 96 Oxymask 5 12/22/22 17:40 95 Oxymask 5 12/22/22 17:30 92 Oxymask 5 12/22/22 14:57 12/22/22 14:46 12/22/22 14:49 95 Room Air 12/22/22 14:30 96 12/22/22 14:15 100 12/22/22 13:45 98 12/22/22 13:30 98 12/22/22 13:16 12/22/22 12:57 12/22/22 12:49 98 12/22/22 13:20 12/22/22 12:37 100 Room Air Resident Activity Tracking Resident Involvement: Resident Care Provided Care Provided: Adult Hospital Medicine
[2022-12-22] MEDS: PIPERACILLIN/TAZOBACTAM 4.5 GM in DEXTROSE 5% 100 ML IV SCH (19:52)
[2022-12-22] MEDS: AMITRIPTYLINE HCL 50 MG TAB PO SCH (21:24)
[2022-12-23] MEDS: ACETAMINOPHEN 1,000 MG/100 ML VIAL IV SCH ×3 (01:38→17:12)
[2022-12-23] MEDS: MoRPHine SULFATE 4 MG/ML 1 ML CARP\\VIAL IV PRN ×8 (01:39→23:26)
[2022-12-23] MEDS: LACTATED RINGER'S 1,000 ML IV SCH ×4 (01:42→23:27)
[2022-12-23] MEDS: PIPERACILLIN/TAZOBACTAM 4.5 GM in DEXTROSE 5% 100 ML IV SCH ×3 (03:23→19:55)
[2022-12-23] MEDS: LEVOTHYROXINE SODIUM 25 MCG TABLET PO SCH (05:11)
[2022-12-23 06:29] LABS: BUN Creatinine Ratio 16.5 (10-20); Calcium 7.8 mg/dl (8.6-10.3); Creatinine Clr Calc Pharmacy 67.4 ml/min; Est GFR (African American) 84.5 ml/min; Est GFR (Non-African American) 72.9 ml/min; Potassium 3.8 mmol/L (3.5-5.1)
[2022-12-23 06:40] LABS: Basophils # (auto) 0.02 K/uL (0-0.2); Basophils % (auto) 0.3 %; Hematocrit (blood only) 31.2 % (37.0-47.0); Hemoglobin 10.7 g/dl (12.0-16.0); Immature Granulocytes # (auto) 0.03 K/uL (0.01-0.20); Immature Granulocytes % (auto) 0.4 %; Lymphocytes # (auto) 0.63 K/uL (1.2-3.4); Mean Corpuscular Hemoglobin 32.5 pg (25.0-34.0); Mean Corpuscular Hgb Conc 34.3 g/dL (32.0-36.0); Mean Corpuscular Volume 94.8 fL (80.0-100.0); Mean Platelet Volume 9.7 fL (9.4-12.4); Monocytes # (auto) 0.42 K/uL (0.11-0.59); Monocytes % (auto) 5.3 %; Neutrophils # (auto) 6.78 K/uL (1.40-6.50); Platelet Count 209 K/uL (130-400); RDW Standard Deviation 41.7 fL (36.4-46.3); Red Blood Count 3.29 M/uL (4.20-5.40); White Blood Count 7.88 K/ul (4.8-10.8)
--- NOTE | 2022-12-23 07:43 | Hospitalist Progress Note ---
Date of Service December 23, 2022 Assessment & Plan (1) Colon perforation: Plan: POD#1 acute abdomen from stercoral proctocolitis 2/2 severe constipation + rectosigmoid pneumatosis intestinalis w/ perforation s/p exploratory laparotomy, abdominal washout, sigmoid colectomy and colostomy with Dr Buddy MUSE 50cc NGT per surgery Continue NPO -- per surgery, possible NGT removal, ice chips/sips today Activity per surgery Remains on IVF IV abx w Zosyn continued OR cx pending/tailor abx as able Pain control, antiemetics WBC wnl, afebrile. Hgb dropped from 15.2--> 10.7, acute blood loss anemia from surgery and copious IVF given hypotension, suspect some aspect of dilutions Added mag to labs -- 1.6, will order 2gm IV given surgery and will aim to keep closer to 2. Monitor on AM labs Monitor labs/exam on repeat (2) Acute hypotension: Plan: BP 64/45 in ER secondary to acute abdomen 2/2 colonic perforation, received significant fluid resuscitation in ER but did not require pressors BP stable at present, will continue to hold her propranolol/oxybuytnin for now Can resume medications as able pending BP stability possibly tomorrow but stable off for now, BP 100/62 this morning, no lightheaded/dizziness reported. (3) Anemia: Plan: -Hgb 15.2--> 10.7, acute blood loss anemia from surgery/dilutional from IVF and continues on IVF monitor for significant bleeding On iron at home -- consider checking iron panel w/ AM labs/venofer as needed CBC in AM (4) HTN (hypertension): Plan: -BP stable at present -Holding propranolol in light of recent hypotension and surgery, can resume as able pending BP stability (5) Fibromyalgia: Plan: -Continue amitryptiline (6) Hypothyroid: Plan: -Continue levothyroxine (7) Urinary frequency: Plan: -Maintain Amaya catheter -Holding oxybutynin in light of recent hypotension and surgery, can resume pending BP stability Plan DVT proph: SCDs for now. Chemoproph when safe -- per surgery for timing Thank you for allowing hospitalist service to participate in the care of Mrs Miller. Will follow along. Admission and Anticipated Discharge Date Admission Date: December 22, 2022 Supervising Physician Co-Signing Physician Notes The patient was not seen by me. The chart was reviewed. Case discussed with AUDRA Gifford. Agree with assessment and plan Subjective eval this morning, painful but controlled w/ ordered medications. drains draining, at bedside. NGT in place at present. She states surgery was by this morning and consideration for removal of NGT today. They do not want her up/out of bed due to lower blood pressures and to remain on bedrest for today. Tearful during exam, support provided. Asked if anything I was able to get her to make her more comfortable and she declined. Discussed will monitor closely and advance as slowly as we need to to make sure she has good outcome. No chest pain/shortness of breath, no nausea. Using incentive spirometer. Questions/concerns addressed at this time. Physical Exam Physical Exam: General: 62yo female sitting up in bed, at bedside, NAD but tearful at times HEENT: head normocephalic, atraumatic, NGT in place (500cc output documented), trachea midline, mm Resp: CTA,, slightly diminished in the bases, no w/c, on room air CV: RRR, no significant m/r/g, no pitting edema GI: hypoactive BS, surgical dressing in place, +ostomy : amaya with yellow urine draining MSK/Neuro: no focal deficits, no slurred speech, following commands as able, SCDs in place Psych: AOx3, cooperative with exam, tearful at times Results & Data Results & Data Vital Signs (Past 12 Hours) Vital Signs Temp Pulse Resp BP Pulse Ox O2 Del Method 12/23/22 07:18 36.5 C 83 15 100/62 96 Room Air 12/23/22 02:47 36.8 C 86 16 105/62 96 Room Air 12/23/22 00:30 Room Air 12/22/22 21:45 36.9 C 78 16 109/69 97 Room Air 12/22/22 20:45 36.5 C 72 16 102/58 L 96 Room Air 12/22/22 19:45 36.5 C 77 16 109/70 95 Room Air Laboratory Results 12/23/22 12/23/22 12/22/22 Range/Units 05:50 05:50 13:53 WBC 7.88 (4.8-10.8) K/ul RBC 3.29 L (4.20-5.40) M/uL Hgb 10.7 L D (12.0-16.0) g/dl POC Hgb (12.0-16.0) g/dl Hct 31.2 L (37.0-47.0) % POC Hct (37-47) % MCV 94.8 (80.0-100.0) fL MCH 32.5 (25.0-34.0) pg MCHC 34.3 (32.0-36.0) g/dL RDW Std Deviation 41.7 (36.4-46.3) fL RDW Coeff of Janie 12.0 (11.5-14.5) % Plt Count 209 (130-400) K/uL MPV 9.7 (9.4-12.4) fL Immature Gran % (Auto) 0.4 % Neut % (Auto) 86.0 % Lymph % (Auto) 8.0 % [place] % (Auto) 5.3 % Eos % (Auto) 0.0 % Baso % (Auto) 0.3 % Neut # (Auto) 6.78 H (1.40-6.50) K/uL Lymph # (Auto) 0.63 L (1.2-3.4) K/uL [place] # (Auto) 0.42 (0.11-0.59) K/uL Eos # (Auto) 0.00 (0-0.50) K/uL Baso # (Auto) 0.02 (0-0.2) K/uL Immature Gran # (Auto) 0.03 (0.01-0.20) K/uL POC Sodium (135-144) mmol/L Sodium 137 (136-145) mmol/L POC Potassium (3.3-5.0) mmol/L Potassium 3.8 (3.5-5.1) mmol/L POC Chloride (101-112) mmol/L Chloride 106 (98-107) mmol/L Carbon Dioxide 26 (21-32) mmol/L POC Total CO2 (24-31) mmol/L Anion Gap 5 (3-11) POC Anion Gap (16-25) mmol/L POC BUN (7-18) mg/dl BUN 14 (6-23) mg/dl Creatinine 0.85 (0.6-1.2) mg/dl POC Creatinine (0.6-1.3) mg/dl Est Cr Clr Drug Dosing 67.4 Est GFR ( Amer) 84.5 ml/min Est GFR (Non-Af Amer) 72.9 ml/min BUN/Creatinine Ratio 16.5 (10-20) Glucose 137 H (70-99(Fasting)) mg/dl POC Glucose (other) (70-99) mg/dl Lactate 1.2 (0.4-2.0) mmol/L Calcium 7.8 L (8.6-10.3) mg/dl POC Ioniz Calcium Joan (1.12-1.32) mmol/l Total Bilirubin (0.2-1.0) mg/dl AST (13-39) U/L ALT (7-52) U/L Alkaline Phosphatase (34-104) U/L Troponin I High Sens (0-14) pg/ml Total Protein (6.0-8.3) gm/dl Albumin (3.4-5.0) gm/dl Globulin (2.5-4.0) gm/dl Albumin/Globulin Ratio (0.9-2) Lipase (11-82) U/L Blood Type Blood Type Recheck Antibody Screen 12/22/22 12/22/22 12/22/22 Range/Units 13:19 12:57 12:54 WBC 4.64 L (4.8-10.8) K/ul RBC 4.53 (4.20-5.40) M/uL Hgb 15.2 (12.0-16.0) g/dl POC Hgb 15.3 (12.0-16.0) g/dl Hct 42.0 (37.0-47.0) % POC Hct 45 (37-47) % MCV 92.7 (80.0-100.0) fL MCH 33.6 (25.0-34.0) pg MCHC 36.2 H (32.0-36.0) g/dL RDW Std Deviation 40.1 (36.4-46.3) fL RDW Coeff of Janie 11.9 (11.5-14.5) % Plt Count 283 (130-400) K/uL MPV 9.8 (9.4-12.4) fL Immature Gran % (Auto) 0.0 % Neut % (Auto) 79.0 % Lymph % (Auto) 14.4 % [place] % (Auto) 4.5 % Eos % (Auto) 1.9 % Baso % (Auto) 0.2 % Neut # (Auto) 3.66 (1.40-6.50) K/uL Lymph # (Auto) 0.67 L (1.2-3.4) K/uL [place] # (Auto) 0.21 (0.11-0.59) K/uL Eos # (Auto) 0.09 (0-0.50) K/uL Baso # (Auto) 0.01 (0-0.2) K/uL Immature Gran # (Auto) 0.00 L (0.01-0.20) K/uL POC Sodium 136 (135-144) mmol/L Sodium (136-145) mmol/L POC Potassium 3.7 (3.3-5.0) mmol/L Potassium (3.5-5.1) mmol/L POC Chloride 96 L (101-112) mmol/L Chloride (98-107) mmol/L Carbon Dioxide (21-32) mmol/L POC Total CO2 26 (24-31) mmol/L Anion Gap (3-11) POC Anion Gap 19.0 (16-25) mmol/L POC BUN 18 (7-18) mg/dl BUN (6-23) mg/dl Creatinine (0.6-1.2) mg/dl POC Creatinine 1.1 (0.6-1.3) mg/dl Est Cr Clr Drug Dosing Est GFR ( Amer) ml/min Est GFR (Non-Af Amer) ml/min BUN/Creatinine Ratio (10-20) Glucose (70-99(Fasting)) mg/dl POC Glucose (other) 183 H (70-99) mg/dl Lactate (0.4-2.0) mmol/L Calcium (8.6-10.3) mg/dl POC Ioniz Calcium Joan 1.22 (1.12-1.32) mmol/l Total Bilirubin (0.2-1.0) mg/dl AST (13-39) U/L ALT (7-52) U/L Alkaline Phosphatase (34-104) U/L Troponin I High Sens (0-14) pg/ml Total Protein (6.0-8.3) gm/dl Albumin (3.4-5.0) gm/dl Globulin (2.5-4.0) gm/dl Albumin/Globulin Ratio (0.9-2) Lipase (11-82) U/L Blood Type Blood Type Recheck A Positive Antibody Screen 12/22/22 12/22/22 Range/Units 12:48 12:47 WBC (4.8-10.8) K/ul RBC (4.20-5.40) M/uL Hgb (12.0-16.0) g/dl POC Hgb (12.0-16.0) g/dl Hct (37.0-47.0) % POC Hct (37-47) % MCV (80.0-100.0) fL MCH (25.0-34.0) pg MCHC (32.0-36.0) g/dL RDW Std Deviation (36.4-46.3) fL RDW Coeff of Janie (11.5-14.5) % Plt Count (130-400) K/uL MPV (9.4-12.4) fL Immature Gran % (Auto) % Neut % (Auto) % Lymph % (Auto) % [place] % (Auto) % Eos % (Auto) % Baso % (Auto) % Neut # (Auto) (1.40-6.50) K/uL Lymph # (Auto) (1.2-3.4) K/uL [place] # (Auto) (0.11-0.59) K/uL Eos # (Auto) (0-0.50) K/uL Baso # (Auto) (0-0.2) K/uL Immature Gran # (Auto) (0.01-0.20) K/uL POC Sodium (135-144) mmol/L Sodium 135 L (136-145) mmol/L POC Potassium (3.3-5.0) mmol/L Potassium 3.7 (3.5-5.1) mmol/L POC Chloride (101-112) mmol/L Chloride 98 (98-107) mmol/L Carbon Dioxide 31 (21-32) mmol/L POC Total CO2 (24-31) mmol/L Anion Gap 6 (3-11) POC Anion Gap (16-25) mmol/L POC BUN (7-18) mg/dl BUN 18 (6-23) mg/dl Creatinine 1.06 (0.6-1.2) mg/dl POC Creatinine (0.6-1.3) mg/dl Est Cr Clr Drug Dosing Not Reportable Est GFR ( Amer) 64.7 ml/min Est GFR (Non-Af Amer) 55.8 ml/min BUN/Creatinine Ratio 17.0 (10-20) Glucose 183 H (70-99(Fasting)) mg/dl POC Glucose (other) (70-99) mg/dl Lactate (0.4-2.0) mmol/L Calcium 9.7 (8.6-10.3) mg/dl POC Ioniz Calcium Joan (1.12-1.32) mmol/l Total Bilirubin 0.4 (0.2-1.0) mg/dl AST 22 (13-39) U/L ALT 25 (7-52) U/L Alkaline Phosphatase 76 (34-104) U/L Troponin I High Sens 3.0 (0-14) pg/ml Total Protein 7.4 (6.0-8.3) gm/dl Albumin 4.5 (3.4-5.0) gm/dl Globulin 2.9 (2.5-4.0) gm/dl Albumin/Globulin Ratio 1.6 (0.9-2) Lipase 18 (11-82) U/L Blood Type A Positive Blood Type Recheck Antibody Screen NEGATIVE PG Care Time/CCT Total # of Minutes Spent Total Time Spent with Patient: Total time spent is greater than 50% in coordination of care (as documented) at patient's floor/unit and/or counseling patient: Coding Level of Care Code 40291 SUB INP/OBS CARE 3/50MIN Diagnoses Colon perforation K63.1 Acute hypotension I95.9 Anemia D64.9 HTN (hypertension) I10 Fibromyalgia M79.7 Hypothyroid E03.9 Urinary frequency R35.0
[2022-12-23 08:10] LABS: Magnesium 1.6 mg/dl (1.7-2.4)
--- NOTE | 2022-12-23 10:05 | Surgery Progress Note ---
Date of Service December 23, 2022 Assessment & Plan (1) Colon perforation: Plan: POD#1 exploratory laparotomy, sigmoid colectomy, washout, and creation of ostomy WBC 7.8, Hbg 10.7(15). Vital signs are stable D/c NGT today and may have sips/chips Continue IV abx Will recheck labs tomorrow, if hbg stable will start DVT prophylaxis- lovenox She may rest today, if feels up to it may try to get to chair as ablw Continue amaya for today Admission and Anticipated Discharge Date Admission Date: December 22, 2022 Subjective Patient doing well. Having expected post op pain that is manageable with current pain regimen. Attempts to get out of bed this AM but felt a little flush. Otherwise she denies nausea/vomiting. Is thankful for the operation. Physical Exam Physical Exam: awake/alert, no distress Gastrointestinal (Abdomen): Inspection/Auscultation: + abdominal surgical incision (with surgical dressings in place); abdomen not distended + ostomy. NGT in place with 500cc documented Results & Data Vital Signs (Past 12 Hours) Vital Signs Temp Pulse Resp BP Pulse Ox O2 Del Method 12/23/22 08:14 Room Air 12/23/22 07:18 36.5 C 83 15 100/62 96 Room Air 12/23/22 02:47 36.8 C 86 16 105/62 96 Room Air 12/23/22 00:30 Room Air PG Care Time/CCT Total # of Minutes Spent Total Time Spent with Patient: Total time spent is greater than 50% in coordination of care (as documented) at patient's floor/unit and/or counseling patient: Coding Level of Care Code 96518 Post Operative Follow-Up Diagnoses Colon perforation K63.1
--- NOTE | 2022-12-23 11:36 | Electrocardiogram Report ---
Test Reason : Blood Pressure : / mmHG Vent. Rate : 084 BPM Atrial Rate : 084 BPM P-R Int : 178 ms QRS Dur : 136 ms QT Int : 428 ms P-R-T Axes : 065 052 054 degrees QTc Int : 505 ms Poor data quality, interpretation may be adversely affected Normal sinus rhythm Left bundle branch block Abnormal ECG When compared with ECG of 22-DEC-2022 12:49, Left bundle branch block is now Present Confirmed by Corbin Kramer ([id number]) on 12/23/2022 11:36:09 AM Referred By: REFERRED SELF Confirmed By:Corbin Kramer
[2022-12-23] MEDS: MAGNESIUM SULFATE / D5W 1 GM/100 ML BAG IV SCH ×2 (12:21→14:27)
[2022-12-23] MEDS: AMITRIPTYLINE HCL 50 MG TAB PO SCH (19:55)
[2022-12-24] MEDS: ACETAMINOPHEN 1,000 MG/100 ML VIAL IV SCH ×3 (00:23→16:33)
[2022-12-24] MEDS: MoRPHine SULFATE 4 MG/ML 1 ML CARP\\VIAL IV PRN ×3 (02:53→08:33)
[2022-12-24] MEDS: PIPERACILLIN/TAZOBACTAM 4.5 GM in DEXTROSE 5% 100 ML IV SCH ×3 (02:57→19:49)
[2022-12-24] MEDS: LACTATED RINGER'S 1,000 ML IV SCH ×2 (05:31→14:51)
[2022-12-24] MEDS: LEVOTHYROXINE SODIUM 25 MCG TABLET PO SCH (05:33)
[2022-12-24 06:30] LABS: Anion Gap 3 (3-11); BUN Creatinine Ratio 14.3 (10-20); Blood Urea Nitrogen 11 mg/dl (6-23); Calcium 8.3 mg/dl (8.6-10.3); Carbon Dioxide 29 mmol/L (21-32); Chloride 101 mmol/L (98-107); Creatinine Clr Calc Pharmacy 74.4 ml/min; Est GFR (African American) 95.2 ml/min; Est GFR (Non-African American) 82.2 ml/min; Glucose 95 mg/dl (70-99(Fasting)); Potassium 3.6 mmol/L (3.5-5.1); Sodium 133 mmol/L (136-145)
[2022-12-24 06:40] LABS: Hematocrit (blood only) 28.7 % (37.0-47.0); Hemoglobin 9.8 g/dl (12.0-16.0); Mean Corpuscular Hemoglobin 32.9 pg (25.0-34.0); Mean Corpuscular Hgb Conc 34.1 g/dL (32.0-36.0); Mean Corpuscular Volume 96.3 fL (80.0-100.0); Mean Platelet Volume 9.9 fL (9.4-12.4); Platelet Count 196 K/uL (130-400); RDW Coefficient of Variation 12.3 % (11.5-14.5); RDW Standard Deviation 43.5 fL (36.4-46.3); Red Blood Count 2.98 M/uL (4.20-5.40); White Blood Count 7.46 K/ul (4.8-10.8)
[2022-12-24 06:46] LABS: Magnesium 2.1 mg/dl (1.7-2.4); Unsaturated Iron Binding Cap 186 mcg/dl (155-355)
[2022-12-24 06:49] LABS: Ferritin 127.9 ng/ml (8-388)
[2022-12-24 06:55] LABS: Basophils # (auto) 0.02 K/uL (0-0.2); Basophils % (auto) 0.3 %; Eosinophils # (auto) 0.12 K/uL (0-0.50); Eosinophils % (auto) 1.6 %; Immature Granulocytes # (auto) 0.04 K/uL (0.01-0.20); Immature Granulocytes % (auto) 0.5 %; Lymphocytes # (auto) 0.71 K/uL (1.2-3.4); Lymphocytes % (auto) 9.5 %; Neutrophils # (auto) 6.27 K/uL (1.40-6.50); Neutrophils % (auto) 84.1 %
[2022-12-24 07:31] LABS: Iron < 10 mcg/dl (35-150)
--- NOTE | 2022-12-24 08:22 | Hospitalist Progress Note ---
Date of Service December 24, 2022 Assessment & Plan (1) Colon perforation: Plan: POD#2 acute abdomen from stercoral proctocolitis 2/2 severe constipation + rectosigmoid pneumatosis intestinalis w/ perforation s/p exploratory laparotomy, abdominal washout, sigmoid colectomy and colostomy with Dr Santoyo. EBL 50cc OR Cx from abdomen few polys, rare gram negative bacilli on GS final, no growth on culture on preliminary - monitor Continues on IV Zosyn NGT per surgery discontinued 12/23, planning to remove amaya for today Ice chips/sips ordered by surgery Pain control, antiemetics -- switched to Dilaudid for today for better pain control To get up to chair today, ambulation as tolerated WBC wnl, afebrile. Hgb dropped from 15.2--> 10.7--> 9.8, acute blood loss anemia from surgery and copious IVF , suspect some aspect of dilutions. IVF continued by surgery, running at 150cc/hr, consider decreasing given wt 63kg to prevent overload Messaged primary to consider decreasing rate Iron panel with Iron <10, consider IV replacement however unsaturated IBC not elevated. Ferritin 127.9 --> GOING TO DECREASE TO 80cc/hr per discussion with Dr Santoyo to prevent overload Mag added to labs yesterday and was low at 1.6, IV replacement ordered and repeat 2.1 Lovenox for DVT prophylaxis for tomorrow, 12/25 Monitor labs/exam on repeat (2) Acute hypotension: Plan: BP 64/45 in ER secondary to acute abdomen 2/2 colonic perforation, received significant fluid resuscitation in ER but did not require pressors BP stable at present and improved 123/73 Resume proproanolol, holding oxybuytnin given catheter but will plan to resume tomorrow as amaya to be removed Monitor (3) Anemia: Plan: -Hgb 15.2--> 10.7--> 9.8 with continued IVF acute blood loss anemia from surgery/dilutional from IVF and continues on IVF monitor for significant bleeding On iron at home -- iron panel w/ Iron <10, no prior known cause per outpatient records Consider giving IV venofer while inpatient. Will plan for dose for tomorrow if no issues w/ BPs CBC in AM (4) HTN (hypertension): Plan: BP stable at present Propranolol resumed as above Monitor (5) Fibromyalgia: Plan: -Continue amitryptiline (6) Hypothyroid: Plan: Continue levothyroxine (7) Urinary frequency: Plan: -Maintain Amaya catheter -- to be removed today per surgery -Holding oxybutynin in light of recent hypotension and surgery, can resume for tomorrow 12/25 (8) Hypomagnesemia: Plan: low on check, IV replacement ordered and normalized on repeat. Monitor in AM to ensure stable Plan DVT proph: SCDs for now. Chemoproph when safe -- surgery ordered to start for tomorrow. SCDs in place in meantime Thank you for allowing hospitalist service to participate in the care of Mrs Miller. Will follow along. Admission and Anticipated Discharge Date Admission Date: December 22, 2022 Supervising Physician Co-Signing Physician Notes The patient was not seen by me. The chart was reviewed. Case discussed with AUDRA Gifford. Agree with assessment and plan Subjective Eval this morning around 930, having some increased pain with morphine, switched to Dilaudid with improvement in control. NGT removed yesterday. Having some belching. Will order some pepcid. No ostomy output. No fever, chills, chest pain, shortness of breath. Seen by Dr Santoyo and removed dressing this morning. She states he is going to trial her on clear liquids for today and she is going to attempt to get up out of bed. Will resume propranolol for today as diet advanced. Questions/concerns addressed at this time. Physical Exam Physical Exam: General: 62yo female sitting up in bed, improvement in pain control, appears more comfortable/less tearful, NAD HEENT: head normocephalic, atraumatic, no further NGT in place, trachea midline Resp: CTA,, slightly diminished in the bases, no w/c, on room air CV: RRR, no significant m/r/g, no pitting edema GI: hypoactive BS but improving in upper quadrants, absent LLQ, ostomy in place with beefy stoma, slight bloody drainage dressing to midline c/d/i (per patient, Dr Santoyo wanting this changed) appropriately tender to palpation, no rigidity : amaya with yellow urine draining MSK/Neuro: no focal deficits, no slurred speech, following commands as able, SCDs in place Psych: AOx3, cooperative with exam Results & Data Results & Data Vital Signs (Past 12 Hours) Vital Signs Temp Pulse Resp BP Pulse Ox O2 Del Method 12/24/22 07:20 Room Air 12/24/22 07:08 36.8 C 102 H 18 123/73 94 Room Air Laboratory Results 12/24/22 12/24/22 Range/Units 05:24 05:24 WBC 7.46 (4.8-10.8) K/ul RBC 2.98 L (4.20-5.40) M/uL Hgb 9.8 L (12.0-16.0) g/dl Hct 28.7 L (37.0-47.0) % MCV 96.3 (80.0-100.0) fL MCH 32.9 (25.0-34.0) pg MCHC 34.1 (32.0-36.0) g/dL RDW Std Deviation 43.5 (36.4-46.3) fL RDW Coeff of Janie 12.3 (11.5-14.5) % Plt Count 196 (130-400) K/uL MPV 9.9 (9.4-12.4) fL Immature Gran % (Auto) 0.5 % Neut % (Auto) 84.1 % Lymph % (Auto) 9.5 % [place] % (Auto) 4.0 % Eos % (Auto) 1.6 % Baso % (Auto) 0.3 % Neut # (Auto) 6.27 (1.40-6.50) K/uL Lymph # (Auto) 0.71 L (1.2-3.4) K/uL [place] # (Auto) 0.30 (0.11-0.59) K/uL Eos # (Auto) 0.12 (0-0.50) K/uL Baso # (Auto) 0.02 (0-0.2) K/uL Immature Gran # (Auto) 0.04 (0.01-0.20) K/uL Sodium 133 L (136-145) mmol/L Potassium 3.6 (3.5-5.1) mmol/L Chloride 101 (98-107) mmol/L Carbon Dioxide 29 (21-32) mmol/L Anion Gap 3 (3-11) BUN 11 (6-23) mg/dl Creatinine 0.77 (0.6-1.2) mg/dl Est Cr Clr Drug Dosing 74.4 ml/min Est GFR ( Amer) 95.2 ml/min Est GFR (Non-Af Amer) 82.2 ml/min BUN/Creatinine Ratio 14.3 (10-20) Glucose 95 (70-99(Fasting)) mg/dl Calcium 8.3 L (8.6-10.3) mg/dl Magnesium 2.1 (1.7-2.4) mg/dl Iron < 10 L (35-150) mcg/dl TIBC TNP Unsaturated IBC 186 (155-355) mcg/dl Transferrin % Sat TNP Ferritin 127.9 (8-388) ng/ml PG Care Time/CCT Total # of Minutes Spent Total Time Spent with Patient: Total time spent is greater than 50% in coordination of care (as documented) at patient's floor/unit and/or counseling patient: Coding Level of Care Code 63499 SUB INP/OBS CARE 3/50MIN Diagnoses Colon perforation K63.1 Acute hypotension I95.9 Anemia D64.9 HTN (hypertension) I10 Fibromyalgia M79.7 Hypothyroid E03.9 Urinary frequency R35.0 Hypomagnesemia E83.42
[2022-12-24] MEDS: ONDANSETRON INJ 2 MG/ML 2 ML VIAL IV PRN ×3 (08:43→20:34)
[2022-12-24] MEDS ORDERED: HYDROmorphone INJ 0.5 MG/0.5 ML SYR IV PRN (09:33)
[2022-12-24] MEDS ORDERED: PROPRANOLOL HCL 80 MG TAB PO SCH (10:00)
[2022-12-24] MEDS: oxyCODONE HCL IR 5 MG TAB (IMMEDIATE RELEASE) PO PRN ×2 (10:00→14:52)
[2022-12-24] MEDS: FAMOTIDINE 20 MG in SYRINGE 3 ML IV SCH (10:29)
[2022-12-24] MEDS: PROPRANOLOL HCL LA 80 MG CAPCR PO SCH (10:34)
[2022-12-24] MEDS ORDERED: PROMETHAZINE HCL 6.25 MG in SODIUM CHLORIDE 0.9% 50 ML IV PRN (11:46)
[2022-12-24] MEDS: HYDROmorphone INJ 1 MG/ML SYRINGE IV PRN ×3 (12:47→19:59)
[2022-12-24] MEDS: AMITRIPTYLINE HCL 50 MG TAB PO SCH (19:59)
[2022-12-24] MEDS: SODIUM CHLORIDE 0.9% 1000ML 1,000 ML IV SCH (20:28)
[2022-12-25] MEDS: ACETAMINOPHEN 1,000 MG/100 ML VIAL IV SCH ×2 (01:20→09:09)
[2022-12-25] MEDS: PIPERACILLIN/TAZOBACTAM 4.5 GM in DEXTROSE 5% 100 ML IV SCH ×3 (04:09→19:47)
[2022-12-25] MEDS: HYDROmorphone INJ 1 MG/ML SYRINGE IV PRN ×5 (04:34→21:32)
[2022-12-25] MEDS: LEVOTHYROXINE SODIUM 25 MCG TABLET PO SCH (06:08)
[2022-12-25 07:19] LABS: Basophils # (auto) 0.04 K/uL (0-0.2); Basophils % (auto) 0.5 %; Eosinophils % (auto) 3.7 %; Hematocrit (blood only) 28.8 % (37.0-47.0); Hemoglobin 9.8 g/dl (12.0-16.0); Immature Granulocytes # (auto) 0.11 K/uL (0.01-0.20); Immature Granulocytes % (auto) 1.4 %; Lymphocytes # (auto) 0.64 K/uL (1.2-3.4); Lymphocytes % (auto) 7.9 %; Mean Corpuscular Hemoglobin 32.5 pg (25.0-34.0); Mean Corpuscular Volume 95.4 fL (80.0-100.0); Mean Platelet Volume 9.6 fL (9.4-12.4); Monocytes # (auto) 0.44 K/uL (0.11-0.59); Monocytes % (auto) 5.5 %; Neutrophils # (auto) 6.54 K/uL (1.40-6.50); Platelet Count 215 K/uL (130-400); RDW Coefficient of Variation 12.2 % (11.5-14.5); RDW Standard Deviation 43.1 fL (36.4-46.3); Red Blood Count 3.02 M/uL (4.20-5.40); White Blood Count 8.07 K/ul (4.8-10.8)
--- NOTE | 2022-12-25 08:05 | Hospitalist Progress Note ---
Date of Service December 25, 2022 Assessment & Plan (1) Colon perforation: Plan: POD#2 acute abdomen from stercoral proctocolitis 2/2 severe constipation + rectosigmoid pneumatosis intestinalis w/ perforation s/p exploratory laparotomy, abdominal washout, sigmoid colectomy and colostomy with Dr Santoyo. EBL 50cc OR Cx from abdomen pin point growth on preliminary, re-incubating --> monitor final IV Zosyn WBC wnl, afebrile. Hgb dropped from 15.2--> 10.7--> 9.8 - acute blood loss anemia/dilutional from copious IVF, stable on repeat. -Iron panel with Iron <10, consider IV replacement however unsaturated IBC not elevated. Ferritin 127.9 NGT removed 12/24 per surgery, amaya as well Diet advanced to clear liquids 12/24 and continues on such until return of bowel funciton Pain control, antiemetics IVF continued at decreased rate 80cc/hr for now as discussed w/ surgery 12/24(patient reported some edema last evening, improved today) given wt 63kg to prevent overload Surgery starting gentle laxative with miralax daily Mag stable on repeat Ambulation encouraged Lovenox SQ started 12/25 for DVT prophylaxis Monitor labs/exam on repeat -- chemistries pending from this morning. Ensure K/mag replete (2) Acute hypotension: Plan: BP 64/45 in ER secondary to acute abdomen 2/2 colonic perforation, received significant fluid resuscitation in ER but did not require pressors BP improved and propranolol resumed BP 132/76 and will monitor on decreased IVF (3) Anemia: Plan: Hgb 15.2--> 10.7--> 9.8 with continued IVF --> decreased IVF as above, Hgb stable on repeat On iron at home -- iron panel w/ Iron <10, no prior known cause per outpatient records Consider giving IV venofer while inpatient. Will plan for dose for tomorrow if BP stable and cx negative Lovenox SQ started for today for DVT ppx given hgb stable CBC in AM (4) HTN (hypertension): Plan: BP stable at present and improved Propranolol resumed as above Monitor (5) Fibromyalgia: Plan: -Continue amitriptyline (6) Hypothyroid: Plan: Continue levothyroxine (7) Urinary frequency: Plan: Amaya removed 12/24 Will resume oxybutynin (8) Hypomagnesemia: Plan: low on check, IV replacement ordered and normalized on repeat and monitoring to ensure stable -- 1.9 and will order 1gm IV Plan DVT proph: SCDs, Lovenox SQ ordered to start today (12/25) Thank you for allowing hospitalist service to participate in the care of Mrs Miller. Will follow along. Admission and Anticipated Discharge Date Admission Date: December 22, 2022 Supervising Physician Co-Signing Physician Notes PA Supervision Note: I did not personally see or examine the patient. I verified all gaffney points and agree with AUDRA Goodman with the following exceptions and/or additions: none Subjective evaluated this morning, doing alright. pain a little better. tried some [place] ice last night but wasn't very hungry, this is improving. wasn't able to ambulate yesterday but going to attempt today seen by surgery this morning and Lovenox started for DVT prophylaxis. She notes some increased breathing but using incentive spirometer. Encouraged continued use. Discussed decreased IVF - she notes her legs were a little swollen last night but improved today. Has a little bit of a headache which isn't too uncommon for her. Currently about to get dose IV tylenol. Questions/concerns addressed at this time. Physical Exam Physical Exam: General: 62yo female sitting up in bed, improvement in pain control, appears more comfortable/less tearful, NAD, headache reported HEENT: head normocephalic, atraumatic, no further NGT in place, trachea midline Resp: CTA,, slightly diminished in the bases but improved with deep cough, no w/c, on room air 92% CV: RRR, no significant m/r/g, no pitting edema GI: hypoactive BS but improving in upper quadrants, absent LLQ, ostomy in place with beefy stoma, slight bloody drainage dressing to midline c/d/i, appropriately tender to palpation, no rigidity MSK/Neuro: no focal deficits, no slurred speech, following commands as able, SCDs in place Psych: AOx3, cooperative with exam Results & Data Results & Data Vital Signs (Past 12 Hours) Vital Signs Temp Pulse Resp BP Pulse Ox O2 Del Method 12/25/22 07:18 36.7 C 80 18 132/76 92 Room Air 12/24/22 20:00 Room Air Laboratory Results 12/25/22 12/25/22 Range/Units 06:34 06:34 WBC 8.07 (4.8-10.8) K/ul RBC 3.02 L (4.20-5.40) M/uL Hgb 9.8 L (12.0-16.0) g/dl Hct 28.8 L (37.0-47.0) % MCV 95.4 (80.0-100.0) fL MCH 32.5 (25.0-34.0) pg MCHC 34.0 (32.0-36.0) g/dL RDW Std Deviation 43.1 (36.4-46.3) fL RDW Coeff of Janie 12.2 (11.5-14.5) % Plt Count 215 (130-400) K/uL MPV 9.6 (9.4-12.4) fL Immature Gran % (Auto) 1.4 % Neut % (Auto) 81.0 % Lymph % (Auto) 7.9 % [place] % (Auto) 5.5 % Eos % (Auto) 3.7 % Baso % (Auto) 0.5 % Neut # (Auto) 6.54 H (1.40-6.50) K/uL Lymph # (Auto) 0.64 L (1.2-3.4) K/uL [place] # (Auto) 0.44 (0.11-0.59) K/uL Eos # (Auto) 0.30 (0-0.50) K/uL Baso # (Auto) 0.04 (0-0.2) K/uL Immature Gran # (Auto) 0.11 (0.01-0.20) K/uL Sodium Pending Potassium Pending Chloride Pending Carbon Dioxide Pending Anion Gap Pending BUN Pending Creatinine Pending Est Cr Clr Drug Dosing Pending Est GFR ( Amer) Pending Est GFR (Non-Af Amer) Pending BUN/Creatinine Ratio Pending Glucose Pending Calcium Pending Magnesium 1.9 (1.7-2.4) mg/dl PG Care Time/CCT Total # of Minutes Spent Total Time Spent with Patient: Total time spent is greater than 50% in coordination of care (as documented) at patient's floor/unit and/or counseling patient: Coding Level of Care Code 76198 SUB INP/OBS CARE 50MIN Diagnoses Colon perforation K63.1 Acute hypotension I95.9 Anemia D64.9 HTN (hypertension) I10 Fibromyalgia M79.7 Hypothyroid E03.9 Urinary frequency R35.0 Hypomagnesemia E83.42
[2022-12-25] MEDS: ENOXAPARIN INJ 40 MG/0.4 ML SYR SQ SCH (08:56)
--- NOTE | 2022-12-25 08:56 | Surgery Progress Note ---
Date of Service December 25, 2022 Assessment & Plan (1) Colon perforation: Plan: She is doing as expected. We will add a mild laxative/softener to the regimen. Continue to encourage clear liquid intake. Would not advance until better bowel function. Continue to increase activity each day Admission and Anticipated Discharge Date Admission Date: December 22, 2022 Subjective Patient seen. Continues to clinically improve. The change in pain medicine did help her she states she is able to move around better. Physical Exam Physical Exam: Alert no acute distress SARAH drain with serous output only Midline incision looks great. Stoma viable but no function yet Results & Data Vital Signs (Past 12 Hours) Vital Signs Temp Pulse Resp BP Pulse Ox O2 Del Method 12/25/22 07:18 36.7 C 80 18 132/76 92 Room Air PG Care Time/CCT Total # of Minutes Spent Total Time Spent with Patient: Total time spent is greater than 50% in coordination of care (as documented) at patient's floor/unit and/or counseling patient: Coding Level of Care Code 04621 Post Operative Follow-Up Diagnoses Colon perforation K63.1
[2022-12-25] MEDS: PROPRANOLOL HCL LA 80 MG CAPCR PO SCH (08:57)
[2022-12-25] MEDS: FAMOTIDINE 20 MG in SYRINGE 3 ML IV SCH (09:07)
[2022-12-25] MEDS: POLYETHYLENE (MIRALAX) 17 GM PACK PO SCH (09:07)
[2022-12-25] MEDS: SODIUM CHLORIDE 0.9% 1000ML 1,000 ML IV SCH ×2 (09:15→22:50)
[2022-12-25] MEDS ORDERED: MAGNESIUM SULFATE / D5W 1 GM/100 ML BAG IV ONE (10:30)
[2022-12-25 12:24] LABS: Calcium 8.3 mg/dl (8.6-10.3); Potassium 3.6 mmol/L (3.5-5.1)
[2022-12-25 12:30] LABS: BUN Creatinine Ratio 12.5 (10-20); Creatinine Clr Calc Pharmacy 79.5 ml/min; Est GFR (African American) 103.3 ml/min; Est GFR (Non-African American) 89.1 ml/min
[2022-12-25] MEDS: oxyBUTYnin chloride 5 MG TAB PO SCH (20:28)
[2022-12-25] MEDS: AMITRIPTYLINE HCL 50 MG TAB PO SCH (20:28)
[2022-12-26] MEDS: HYDROmorphone INJ 1 MG/ML SYRINGE IV PRN ×7 (02:26→22:14)
[2022-12-26] MEDS: PIPERACILLIN/TAZOBACTAM 4.5 GM in DEXTROSE 5% 100 ML IV SCH ×3 (03:25→23:19)
[2022-12-26] MEDS: LEVOTHYROXINE SODIUM 25 MCG TABLET PO SCH (05:37)
[2022-12-26 06:52] LABS: Basophils # (auto) 0.03 K/uL (0-0.2); Basophils % (auto) 0.4 %; Eosinophils # (auto) 0.34 K/uL (0-0.50); Eosinophils % (auto) 5.1 %; Hemoglobin 9.5 g/dl (12.0-16.0); Immature Granulocytes # (auto) 0.07 K/uL (0.01-0.20); Lymphocytes # (auto) 0.96 K/uL (1.2-3.4); Lymphocytes % (auto) 14.3 %; Mean Corpuscular Hgb Conc 33.9 g/dL (32.0-36.0); Mean Corpuscular Volume 94.3 fL (80.0-100.0); Mean Platelet Volume 9.5 fL (9.4-12.4); Monocytes # (auto) 0.56 K/uL (0.11-0.59); Monocytes % (auto) 8.4 %; Neutrophils # (auto) 4.73 K/uL (1.40-6.50); Neutrophils % (auto) 70.8 %; Platelet Count 252 K/uL (130-400); RDW Coefficient of Variation 12.2 % (11.5-14.5); RDW Standard Deviation 42.5 fL (36.4-46.3); Red Blood Count 2.97 M/uL (4.20-5.40); White Blood Count 6.69 K/ul (4.8-10.8)
[2022-12-26 07:05] LABS: BUN Creatinine Ratio 11.1 (10-20); Calcium 8.2 mg/dl (8.6-10.3); Creatinine Clr Calc Pharmacy 90.9 ml/min; Est GFR (African American) 110.6 ml/min; Est GFR (Non-African American) 95.5 ml/min; Potassium 3.4 mmol/L (3.5-5.1)
[2022-12-26] MEDS: FAMOTIDINE 20 MG in SYRINGE 3 ML IV SCH (07:41)
[2022-12-26] MEDS: PROPRANOLOL HCL LA 80 MG CAPCR PO SCH (07:43)
[2022-12-26] MEDS: oxyCODONE HCL IR 5 MG TAB (IMMEDIATE RELEASE) PO PRN (07:44)
[2022-12-26] MEDS: oxyBUTYnin chloride 5 MG TAB PO SCH ×2 (07:44→20:37)
--- NOTE | 2022-12-26 07:44 | Surgery Progress Note ---
Date of Service December 26, 2022 Assessment & Plan (1) Colon perforation: Plan: s/p exlap sigmoid colectomy and colostomy formation WBC 6.6, Hbg 9.5. vitals stable. On IV zosyn Continue on clear liquids until more meaningful output from ostomy Will re-add APAP to pain regimen SARAH drain serosang Continue OOB and working with pt/ot + pulmonary toilet as tolerates Appreciate hospitalists following along As above. Doing okay but awaiting full return of bowel function. We will increase her MiraLAX to twice a day. Continue to encourage decreased use of pain medicine increased ambulation physical therapy etc. Admission and Anticipated Discharge Date Admission Date: December 22, 2022 Subjective Patient states her night was okay. Having some more discomfort she believes is related to doing a little bit more activity. Otherwise it has been manageable on current pain regimen. She is tolerating clears without nausea/vomiting. Worked with PT/OT yesterday. Physical Exam Physical Exam: awake/alert, no distress Respiratory: normal respiratory effort Gastrointestinal (Abdomen): Inspection/Auscultation: + abdominal surgical incision (c/d/i with dressings) and + abdominal surgical drain present (serosang, 60cc documented over last 24 hrs); abdomen not distended Percussion/Palpation: + abdomen tender (cee incisional discomfort) and abdomen soft + ostomy with scant sweat/blood tinged fluid in bag Results & Data Vital Signs (Past 12 Hours) Vital Signs Temp Pulse Resp BP Pulse Ox O2 Del Method 12/25/22 20:29 37.2 C 85 18 133/71 93 Room Air PG Care Time/CCT Total # of Minutes Spent Total Time Spent with Patient: Total time spent is greater than 50% in coordination of care (as documented) at patient's floor/unit and/or counseling patient: Coding Level of Care Code 32157 Post Operative Follow-Up Diagnoses Colon perforation K63.1
[2022-12-26] MEDS: ENOXAPARIN INJ 40 MG/0.4 ML SYR SQ SCH (07:45)
[2022-12-26] MEDS: POLYETHYLENE (MIRALAX) 17 GM PACK PO SCH ×2 (07:45→20:37)
[2022-12-26] MEDS: ACETAMINOPHEN 1,000 MG/100 ML VIAL IV SCH ×3 (08:24→23:18)
--- NOTE | 2022-12-26 08:24 | Hospitalist Progress Note ---
Date of Service December 26, 2022 Assessment & Plan (1) Colon perforation: Plan: POD#4 acute abdomen from stercoral proctocolitis 2/2 severe constipation + rectosigmoid pneumatosis intestinalis w/ perforation s/p exploratory laparotomy, abdominal washout, sigmoid colectomy and colostomy with Dr Santoyo. EBL 50cc OR Cx pin point growth on preliminary, re-incubating --> monitor final IV Zosyn NGT removed 12/24 Continues on clear liquid diet -- cautious advancement recommended as no output from ostomy yet Miralax ordered by surgery once daily Ambulation encouraged WBC wnl Encouraged incentive spirometer/pulm toilet given atelectasis on exam, monitor for any PNA, afebrile IVF continued at reduced rate of 80cc/hr K supplementation given bowel surgery, mag wnl Hgb stable on continuous IVF, no bleeding reported and was given copious IVF on admit and suspect aspect of dilution. She is on PO iron at home Discussed w/ surgery PA, iron panel w/ iron <10 and Venofer able to be provided this morning coordinate measuring equipment operator consulted (placed after 5pm sunday, planning to see her today as discussed w/ Sherin) On Lovenox SQ for DVT prophylaxis (started 12/25) Monitor labs/exam on repeat (2) Acute hypotension: Plan: BP 64/45 in ER secondary to acute abdomen 2/2 colonic perforation, received significant fluid resuscitation in ER but did not require pressors BP improved and propranolol resumed BP remaining stable (3) Anemia: Plan: Hgb 15.2--> 10.7--> 9.8 --> 9.5 some aspect of dilutional however see above, on iron at home, iron studies w/ iron <10, ferritin not elevated and will plan Venofer IV 300mg today and monitor CBC in AM (4) HTN (hypertension): Plan: BP stable at present and improved since resuming her propranolol/decreasing IVF to 80cc/hr Monitor (5) Fibromyalgia: Plan: Continue amitriptyline (6) Hypothyroid: Plan: Continue levothyroxine (7) Urinary frequency: Plan: Rios removed 12/24, resumed oxybutynin. no issues reported (8) Hypomagnesemia: Plan: Low/replaced, resolved on repeat labs Rec keeping ~2 Plan DVT proph: SCDs, Lovenox SQ started 12/25 Thank you for allowing hospitalist service to participate in the care of Mrs Miller. Will follow along. Admission and Anticipated Discharge Date Admission Date: December 22, 2022 Supervising Physician Co-Signing Physician Notes PA Supervision Note: I did not personally see or examine the patient. I verified all gaffney points and agree with AUDRA Goodman with the following exceptions and/or additions: none Subjective eval this morning, had a little bit of a rough night with pain. Tylenol/oxycodone/Dilaudid provided and feeling more comfortable. scant output from ostomy. She did ambulate a little last night but planning to try and ambulate a little more today. No emesis, but not very hungry/little oral intake. tearful about the entire process/ hoping she wouldn't have wasted 2 hours to come in but she reports she thought it was gas pain. tearful during discussion and reassurance provided to patient, support. Will monitor progress but encouraging ambulation. Swelling continues to decline. Discussed K supplementation. Iron IV if surgery ok with such, she is on supplementation at home. Questions/concerns addressed at this time. Physical Exam Physical Exam: General: 62yo female sitting up in bed, painful overnight reported but improved at present, NAD, slightly tearful at end of encounter HEENT: head normocephalic, atraumatic,trachea midline Resp: CTA,, slightly diminished in the bases but improved with deep cough, no w/c, on room air CV: RRR, no significant m/r/g, trace pedal edema GI: hypoactive BS but improving in upper quadrants, absent LLQ, ostomy in place with beefy stoma, slight bloody drainage now with scant sweat dressing to midline c/d/i, appropriately tender to palpation, no rigidity, voluntary guarding noted MSK/Neuro: no focal deficits, no slurred speech, following commands as able, SCDs in place Psych: AOx3, cooperative with exam Results & Data Results & Data Vital Signs (Past 12 Hours) Vital Signs Temp Pulse Resp BP Pulse Ox O2 Del Method 12/26/22 08:02 37.1 C 90 19 120/72 90 Room Air 12/25/22 20:29 37.2 C 85 18 133/71 93 Room Air Laboratory Results 12/26/22 12/26/22 Range/Units 06:03 06:03 WBC 6.69 (4.8-10.8) K/ul RBC 2.97 L (4.20-5.40) M/uL Hgb 9.5 L (12.0-16.0) g/dl Hct 28.0 L (37.0-47.0) % MCV 94.3 (80.0-100.0) fL MCH 32.0 (25.0-34.0) pg MCHC 33.9 (32.0-36.0) g/dL RDW Std Deviation 42.5 (36.4-46.3) fL RDW Coeff of Janie 12.2 (11.5-14.5) % Plt Count 252 (130-400) K/uL MPV 9.5 (9.4-12.4) fL Immature Gran % (Auto) 1.0 % Neut % (Auto) 70.8 % Lymph % (Auto) 14.3 % [place] % (Auto) 8.4 % Eos % (Auto) 5.1 % Baso % (Auto) 0.4 % Neut # (Auto) 4.73 (1.40-6.50) K/uL Lymph # (Auto) 0.96 L (1.2-3.4) K/uL [place] # (Auto) 0.56 (0.11-0.59) K/uL Eos # (Auto) 0.34 (0-0.50) K/uL Baso # (Auto) 0.03 (0-0.2) K/uL Immature Gran # (Auto) 0.07 (0.01-0.20) K/uL Sodium 134 L (136-145) mmol/L Potassium 3.4 L (3.5-5.1) mmol/L Chloride 102 (98-107) mmol/L Carbon Dioxide 26 (21-32) mmol/L Anion Gap 6 (3-11) BUN 7 (6-23) mg/dl Creatinine 0.63 (0.6-1.2) mg/dl Est Cr Clr Drug Dosing 90.9 ml/min Est GFR ( Amer) 110.6 ml/min Est GFR (Non-Af Amer) 95.5 ml/min BUN/Creatinine Ratio 11.1 (10-20) Glucose 120 H (70-99(Fasting)) mg/dl Calcium 8.2 L (8.6-10.3) mg/dl Magnesium 2.0 (1.7-2.4) mg/dl PG Care Time/CCT Total # of Minutes Spent Total Time Spent with Patient: Total time spent is greater than 50% in coordination of care (as documented) at patient's floor/unit and/or counseling patient: Coding Level of Care Code 44783 SUB INP/OBS CARE 3/50MIN Diagnoses Colon perforation K63.1 Acute hypotension I95.9 Anemia D64.9 HTN (hypertension) I10 Fibromyalgia M79.7 Hypothyroid E03.9 Urinary frequency R35.0 Hypomagnesemia E83.42
[2022-12-26] MEDS: POTASSIUM CHLORIDE / WTR 10 MEQ/100 ML PLCT IV SCH ×3 (08:55→11:09)
[2022-12-26] MEDS ORDERED: IRON SUCROSE 300 MG in SODIUM CHLORIDE 0.9% 250 ML IV ONE (10:15)
[2022-12-26] MEDS: SODIUM CHLORIDE 0.9% 1000ML 1,000 ML IV SCH ×2 (11:08→23:16)
[2022-12-26] MEDS ORDERED: Nursing to Pharmacy Communication SCH (14:00)
[2022-12-26] MEDS: AMITRIPTYLINE HCL 50 MG TAB PO SCH (20:37)
[2022-12-27] MEDS: HYDROmorphone INJ 1 MG/ML SYRINGE IV PRN ×5 (03:20→21:34)
[2022-12-27] MEDS: LEVOTHYROXINE SODIUM 25 MCG TABLET PO SCH (06:22)
[2022-12-27] MEDS: PIPERACILLIN/TAZOBACTAM 4.5 GM in DEXTROSE 5% 100 ML IV SCH ×3 (06:29→23:48)
[2022-12-27] MEDS: ACETAMINOPHEN 1,000 MG/100 ML VIAL IV SCH ×3 (07:35→23:25)
[2022-12-27] MEDS: PROPRANOLOL HCL LA 80 MG CAPCR PO SCH (07:38)
[2022-12-27] MEDS: oxyBUTYnin chloride 5 MG TAB PO SCH ×2 (07:38→20:33)
[2022-12-27] MEDS: ENOXAPARIN INJ 40 MG/0.4 ML SYR SQ SCH (07:38)
[2022-12-27] MEDS: POLYETHYLENE (MIRALAX) 17 GM PACK PO SCH ×2 (07:38→20:33)
[2022-12-27 07:42] LABS: Hematocrit (blood only) 29.2 % (37.0-47.0); Hemoglobin 9.9 g/dl (12.0-16.0); Mean Corpuscular Hemoglobin 31.8 pg (25.0-34.0); Mean Corpuscular Hgb Conc 33.9 g/dL (32.0-36.0); Mean Corpuscular Volume 93.9 fL (80.0-100.0); Mean Platelet Volume 9.3 fL (9.4-12.4); Platelet Count 278 K/uL (130-400); RDW Coefficient of Variation 12.3 % (11.5-14.5); RDW Standard Deviation 42.7 fL (36.4-46.3); Red Blood Count 3.11 M/uL (4.20-5.40)
[2022-12-27 07:53] LABS: Albumin Globulin Ratio 1.1 (0.9-2); Albumin Level 3.2 gm/dl (3.4-5.0); BUN Creatinine Ratio 9.4 (10-20); Bilirubin,Total 0.5 mg/dl (0.2-1.0); Calcium 8.6 mg/dl (8.6-10.3); Creatinine Clr Calc Pharmacy 108.1 ml/min; Est GFR (African American) 117.1 ml/min; Magnesium 1.9 mg/dl (1.7-2.4); Potassium 3.4 mmol/L (3.5-5.1); Total Protein 6.2 gm/dl (6.0-8.3)
[2022-12-27] MEDS: FAMOTIDINE 20 MG in SYRINGE 3 ML IV SCH (07:59)
[2022-12-27] MEDS ORDERED: POTASSIUM CHLORIDE CRTAB 20 MEQ TABCR PO STA (08:41)
--- NOTE | 2022-12-27 08:46 | Surgery Progress Note ---
Date of Service December 27, 2022 Assessment & Plan (1) Colon perforation: Plan: s/p exlap sigmoid colectomy and colostomy formation WBC 6.8, Hbg 9.9. K 3.4 (will replete) vitals stable. On IV zosyn Continue on clear liquids until more meaningful output from ostomy Will add sennakot to her bowel regimen, on BID miralax currently SARAH drain serosang Would avoid any PO iron Continue OOB and working with pt/ot + pulmonary toilet as tolerates Appreciate hospitalists following along as above. will add stool softener so laxative regiment. still waiting improved bowel fx Admission and Anticipated Discharge Date Admission Date: December 22, 2022 Subjective Patient feeling okay this AM. Tolerating more volume of clears. Starting to feel more rumbling in her abdomen, but no significant ostomy output thus far. Has been working on ambulating. Requiring pain meds still, especially after being more active. No n/v. Physical Exam Physical Exam: awake/alert, sitting up in chair Respiratory: normal respiratory effort Gastrointestinal (Abdomen): Inspection/Auscultation: + abdominal surgical drain present (serosang. ) Percussion/Palpation: + abdomen tender (expected cee incisional discomfort ) and abdomen soft ostomy + Results & Data Vital Signs (Past 12 Hours) Vital Signs Temp Pulse Resp BP Pulse Ox O2 Del Method 12/27/22 07:12 36.8 C 80 18 148/61 H 93 Room Air PG Care Time/CCT Total # of Minutes Spent Total Time Spent with Patient: Total time spent is greater than 50% in coordination of care (as documented) at patient's floor/unit and/or counseling patient: Coding Level of Care Code 17679 Post Operative Follow-Up Diagnoses Colon perforation K63.1
[2022-12-27] MEDS: SENNA 8.6 MG TAB PO SCH ×2 (09:45→20:33)
[2022-12-27] MEDS: SODIUM CHLORIDE 0.9% 1000ML 1,000 ML IV SCH (12:04)
--- NOTE | 2022-12-27 16:57 | Hospitalist Progress Note ---
Date of Service December 27, 2022 Assessment & Plan (1) Colon perforation: Plan: Colon perf 2/2 stercoral proctocolitis from severe constipation Now s/p exploratory laparotomy, abdominal washout, sigmoid colectomy and colostomy with Dr Santoyo on 12/22. EBL 50cc OR Cx with Bacteroides fragilis Now passing flatus and some small stool on 12/27, pain improving -continue IV ZOsyn -continue clear liquids diet for now and adv once bowel function improves -dc IVFs as taking adequate po fluids and developing ankle edema -continue Miralax -Ambulation encouraged -follow CBC, BMP,Mag, phos in AM- replace KCl today -surface mount technology operator consulted for ostomy care teaching -continue V Pepcid (2) Acute hypotension: Plan: BP 64/45 in ER secondary to acute abdomen 2/2 colonic perforation, received significant fluid resuscitation in ER but did not require pressors BP improved and propranolol resumed BP remaining stable (3) Anemia: Plan: Hgb 15.2 on admission and down to 9.5 post-op, now improved to 9.9 some aspect of dilutional and some blood loss -on iron at home, iron studies w/ iron <10, ferritin not elevated-received Venofer IV 300mg x 1 -give another dose of Venofer today -follow CBC (4) LBBB (left bundle branch block): Plan: New LBBB on ECG here. Pt reports no previous history of such. Had an ECHO 25 years ago for unspecified tachycardia related to her Grave's disease -check repeat ECG here -check ECHO (5) HTN (hypertension): Plan: as above, now normal continue home propranolol (6) Fibromyalgia: Plan: Continue amitriptyline (7) Hypothyroid: Plan: Continue levothyroxine TSH normal in 01/2022 (8) Urinary frequency: Plan: Rios removed 12/24, resumed oxybutynin. no issues reported Plan DVT proph: SCDs, Lovenox SQ Thank you for allowing hospitalist service to participate in the care of Mrs Miller. Will follow along. Admission and Anticipated Discharge Date Admission Date: December 22, 2022 Subjective Pt reports feeling better today. Had abd pains earlier but walked around, got pain medicine and then passed a large amount of flatus into colostomy along with a small piece of stool. No nausea. No CP, SOB, lightheadedness. Is making plenty of urine and feels her ankles are getting swollen. Physical Exam Constitutional: WD/WN, vitals as above Neck: trachea midline, no thyromegaly Respiratory: normal respiratory effort, lungs clear to auscultation Cardiovascular: RRR, no murmur, no edema Chest (Breasts): Chest: normal inspection of chest Gastrointestinal (Abdomen): Inspection/Auscultation: + abdomen distended (mild) and + hypoactive bowel sounds; + abdomen abnormal to inspection (colostomy bag in place with gas) Percussion/Palpation: + abdomen tender (mild over incision) and abdomen soft; no guarding Musculoskeletal: Extremities: extremities normal to inspection; no cyanosis and no clubbing Skin: no rashes, warm and dry Neurologic: moves all extremities and awake; no focal motor deficits Psychiatric: A+Ox3, euthymic affect Lymphatic: no lymphedema Results & Data Results & Data Vital Signs (Past 12 Hours) Vital Signs Temp Pulse Resp BP Pulse Ox O2 Del Method 12/27/22 15:18 37.2 C 82 18 137/79 98 Room Air 12/27/22 07:40 Room Air 12/27/22 07:12 36.8 C 80 18 148/61 H 93 Room Air Laboratory Results CBC,BMP, LFTs, magnesium reviewed PG Care Time/CCT Total # of Minutes Spent Total Time Spent with Patient: Total time spent is greater than 50% in coordination of care (as documented) at patient's floor/unit and/or counseling patient: Coding Level of Care Code 66048 SUB INP/OBS CARE 2/35MIN Diagnoses Colon perforation K63.1 Acute hypotension I95.9 Anemia D64.9 LBBB (left bundle branch block) I44.7 HTN (hypertension) I10 Fibromyalgia M79.7 Hypothyroid E03.9 Urinary frequency R35.0
[2022-12-27] MEDS ORDERED: IRON SUCROSE 300 MG in SODIUM CHLORIDE 0.9% 250 ML IV ONE (17:15)
[2022-12-27] MEDS: AMITRIPTYLINE HCL 50 MG TAB PO SCH (20:33)
[2022-12-28] MEDS: HYDROmorphone INJ 1 MG/ML SYRINGE IV PRN ×4 (05:45→22:35)
[2022-12-28] MEDS: LEVOTHYROXINE SODIUM 25 MCG TABLET PO SCH (05:45)
[2022-12-28] MEDS: FAMOTIDINE 20 MG in SYRINGE 3 ML IV SCH (07:16)
[2022-12-28] MEDS: PIPERACILLIN/TAZOBACTAM 4.5 GM in DEXTROSE 5% 100 ML IV SCH ×3 (07:16→23:37)
[2022-12-28] MEDS: PROPRANOLOL HCL LA 80 MG CAPCR PO SCH (07:17)
[2022-12-28] MEDS: oxyBUTYnin chloride 5 MG TAB PO SCH ×2 (07:17→20:28)
[2022-12-28] MEDS: POLYETHYLENE (MIRALAX) 17 GM PACK PO SCH ×2 (07:17→20:29)
[2022-12-28] MEDS: ENOXAPARIN INJ 40 MG/0.4 ML SYR SQ SCH (07:18)
[2022-12-28] MEDS: SENNA 8.6 MG TAB PO SCH ×2 (07:18→20:28)
[2022-12-28] MEDS: ACETAMINOPHEN 1,000 MG/100 ML VIAL IV SCH ×3 (07:34→23:38)
--- NOTE | 2022-12-28 08:23 | Surgery Progress Note ---
Date of Service December 28, 2022 Assessment & Plan (1) History of bowel resection: Plan: Still waiting for return of bowel function. MiraLAX twice a day as well as stool softeners. Will increase to full liquid diet. Continue to encourage minimal narcotic use and increase ambulation. Admission and Anticipated Discharge Date Admission Date: December 22, 2022 Subjective Patient seen. Feeling okay. Small amount of stool and some gas in the stoma bag. Tolerating clear liquids just fine Physical Exam Physical Exam: Alert. No acute distress Abdomen is soft. Incision looks good. Stoma viable with minimal output Results & Data Vital Signs (Past 12 Hours) Vital Signs Temp Pulse Resp BP Pulse Ox O2 Del Method 12/28/22 07:26 36.9 C 73 16 126/65 96 Room Air 12/27/22 21:35 36.4 C L 75 18 138/78 99 Room Air PG Care Time/CCT Total # of Minutes Spent Total Time Spent with Patient: Total time spent is greater than 50% in coordination of care (as documented) at patient's floor/unit and/or counseling patient: Coding Level of Care Code 05886 Post Operative Follow-Up Diagnoses History of bowel resection Z90.49
[2022-12-28 09:02] LABS: Hematocrit (blood only) 29.3 % (37.0-47.0); Hemoglobin 10.4 g/dl (12.0-16.0); Mean Corpuscular Hemoglobin 32.3 pg (25.0-34.0); Mean Corpuscular Hgb Conc 35.5 g/dL (32.0-36.0); Mean Platelet Volume 9.2 fL (9.4-12.4); Nucleated RBC # (auto) 0.02 K/uL (0-0.12); Nucleated RBC % (auto) 0.3 %; Platelet Count 336 K/uL (130-400); RDW Coefficient of Variation 12.3 % (11.5-14.5); RDW Standard Deviation 40.5 fL (36.4-46.3); Red Blood Count 3.22 M/uL (4.20-5.40); White Blood Count 7.55 K/ul (4.8-10.8)
[2022-12-28 09:18] LABS: Basophils # (auto) 0.04 K/uL (0-0.2); Basophils % (auto) 0.5 %; Eosinophils # (auto) 0.31 K/uL (0-0.50); Eosinophils % (auto) 4.1 %; Immature Granulocytes % (auto) 5.3 %; Lymphocytes # (auto) 1.23 K/uL (1.2-3.4); Lymphocytes % (auto) 16.3 %; Monocytes # (auto) 0.89 K/uL (0.11-0.59); Monocytes % (auto) 11.8 %; Neutrophils # (auto) 4.68 K/uL (1.40-6.50)
[2022-12-28 09:23] LABS: BUN Creatinine Ratio 8.8 (10-20); Calcium 9.2 mg/dl (8.6-10.3); Creatinine Clr Calc Pharmacy 100.5 ml/min; Est GFR (African American) 114.3 ml/min; Est GFR (Non-African American) 98.7 ml/min; Phosphorus 3.5 mg/dl (2.5-4.9); Potassium 3.8 mmol/L (3.5-5.1)
--- NOTE | 2022-12-28 12:41 | XCELERA ---
[id number]___[id number]
--- NOTE | 2022-12-28 15:40 | Electrocardiogram Report ---
Test Reason : Blood Pressure : / mmHG Vent. Rate : 080 BPM Atrial Rate : 080 BPM P-R Int : 168 ms QRS Dur : 100 ms QT Int : 388 ms P-R-T Axes : 076 037 035 degrees QTc Int : 447 ms Normal sinus rhythm T wave abnormality, consider anterior ischemia Abnormal ECG When compared with ECG of 22-DEC-2022 17:37, Left bundle branch block is no longer Present Confirmed by Corbin Kramer ([id number]) on 12/28/2022 3:39:40 PM Referred By: REFERRED SELF Confirmed By:Corbin Kramer
[2022-12-28] MEDS: oxyCODONE HCL IR 5 MG TAB (IMMEDIATE RELEASE) PO PRN ×2 (15:44→19:56)
--- NOTE | 2022-12-28 16:48 | Hospitalist Progress Note ---
Date of Service December 28, 2022 Assessment & Plan (1) Colon perforation: Plan: Colon perf 2/2 stercoral proctocolitis from severe constipation Now s/p exploratory laparotomy, abdominal washout, sigmoid colectomy and colostomy with Dr Santoyo on 12/22. EBL 50cc OR Cx with Bacteroides fragilis Now passing flatus and some small stool, pain improving, adv diet to full liquids -continue IV ZOsyn -continue Miralax -Ambulation encouraged -general handling supervisor consulted for ostomy care teaching -continue IV Pepcid (2) Acute hypotension: Plan: BP 64/45 in ER secondary to acute abdomen 2/2 colonic perforation, received significant fluid resuscitation in ER but did not require pressors BP improved and propranolol resumed BP remaining stable (3) Anemia: Plan: Hgb 15.2 on admission and down to 9.5 post-op, now improved to 10.4 after 2 doses of venofer some aspect of dilutional and some blood loss -on iron at home, iron studies w/ iron <10, ferritin not elevated-received Venofer IV 300mg x 2 here -follow CBC (4) LBBB (left bundle branch block): Plan: New LBBB on ECG here. Pt reports no previous history of such. Had an ECHO 25 years ago for unspecified tachycardia related to her Grave's disease -checked repeat ECG here and no further LBBB but with anterior TWIs -asymptomatic, troponin normal ECHO normal recommend f/u with PCP and do stress test outpt after recovery from surgery (5) HTN (hypertension): Plan: as above, now normal continue home propranolol (6) Fibromyalgia: Plan: Continue amitriptyline (7) Hypothyroid: Plan: Continue levothyroxine TSH normal in 01/2022 (8) Urinary frequency: Plan: Rios removed 12/24, resumed oxybutynin. no issues reported Plan DVT proph: SCDs, Lovenox SQ Thank you for allowing hospitalist service to participate in the care of Mrs Miller. Hospitalist service will sign off at this time, please feel free to reconsult if new or acute issues arise Admission and Anticipated Discharge Date Admission Date: December 22, 2022 Subjective Had some abd pain this AM and then walked around, had a small BM and feeling much better. No CP, SOB. Physical Exam Constitutional: WD/WN, vitals as above Neck: trachea midline, no thyromegaly Respiratory: normal respiratory effort, lungs clear to auscultation Cardiovascular: RRR, no murmur, no edema Chest (Breasts): Chest: normal inspection of chest Gastrointestinal (Abdomen): Inspection/Auscultation: + abdomen abnormal to inspection (colostomy bag in place with gas) Percussion/Palpation: + abdomen tender (mild over incision) and abdomen soft; no guarding Musculoskeletal: Extremities: extremities normal to inspection; no cyanosis and no clubbing Skin: no rashes, warm and dry Neurologic: moves all extremities and awake; no focal motor deficits Psychiatric: A+Ox3, euthymic affect Lymphatic: no lymphedema Results & Data Results & Data Vital Signs (Past 12 Hours) Vital Signs Temp Pulse Resp BP Pulse Ox O2 Del Method 12/28/22 14:28 36.4 C L 76 18 123/70 96 Room Air 12/28/22 07:25 Room Air 12/28/22 07:26 36.9 C 73 16 126/65 96 Room Air Laboratory Results troponin, CBC, BMP, mag, phos reviewed PG Care Time/CCT Total # of Minutes Spent Total Time Spent with Patient: Total time spent is greater than 50% in coordination of care (as documented) at patient's floor/unit and/or counseling patient: Coding Level of Care Code 16434 SUB INP/OBS CARE 2/35MIN Diagnoses Colon perforation K63.1 Acute hypotension I95.9 Anemia D64.9 LBBB (left bundle branch block) I44.7 HTN (hypertension) I10 Fibromyalgia M79.7 Hypothyroid E03.9 Urinary frequency R35.0
[2022-12-28] MEDS: AMITRIPTYLINE HCL 50 MG TAB PO SCH (20:28)
[2022-12-29] MEDS: oxyCODONE HCL IR 5 MG TAB (IMMEDIATE RELEASE) PO PRN ×3 (04:07→20:27)
[2022-12-29] MEDS: LEVOTHYROXINE SODIUM 25 MCG TABLET PO SCH (06:11)
[2022-12-29] MEDS: PIPERACILLIN/TAZOBACTAM 4.5 GM in DEXTROSE 5% 100 ML IV SCH ×3 (07:37→23:20)
[2022-12-29] MEDS: FAMOTIDINE 20 MG in SYRINGE 3 ML IV SCH (07:38)
[2022-12-29] MEDS: ENOXAPARIN INJ 40 MG/0.4 ML SYR SQ SCH (07:41)
[2022-12-29] MEDS: PROPRANOLOL HCL LA 80 MG CAPCR PO SCH (07:42)
[2022-12-29] MEDS: SENNA 8.6 MG TAB PO SCH ×2 (07:42→20:28)
[2022-12-29] MEDS: POLYETHYLENE (MIRALAX) 17 GM PACK PO SCH ×2 (07:42→20:29)
[2022-12-29] MEDS: oxyBUTYnin chloride 5 MG TAB PO SCH ×2 (07:42→20:27)
--- NOTE | 2022-12-29 09:33 | Surgery Progress Note ---
Date of Service December 29, 2022 Assessment & Plan (1) History of bowel resection: Plan: Continues to slowly improve. We will advance her to a low residue diet. She does not feel she is ready for discharge yet and I agree. Likely discharge plans for Sunday or Sunday of next week. We will also remove her nonfunctioning drain (2) Sepsis: (3) Peritonitis: Admission and Anticipated Discharge Date Admission Date: December 22, 2022 Subjective Patient seen. Doing okay. Still having some pain but states it is improved from yesterday. She is starting to get some stool output from her stoma. Her SARAH drain has stopped holding suction. Physical Exam Physical Exam: Alert. No acute distress Abdomen is soft and mildly distended. Stoma viable and starting to put stool out. Incision looks good Results & Data Vital Signs (Past 12 Hours) Vital Signs Temp Pulse Resp BP Pulse Ox O2 Del Method 12/29/22 07:21 36.6 C 78 18 134/74 96 Room Air PG Care Time/CCT Total # of Minutes Spent Total Time Spent with Patient: Total time spent is greater than 50% in coordination of care (as documented) at patient's floor/unit and/or counseling patient: Coding Level of Care Code 11219 Post Operative Follow-Up Diagnoses History of bowel resection Z90.49 Sepsis A41.9 Peritonitis K65.9
[2022-12-29] MEDS: HYDROmorphone INJ 1 MG/ML SYRINGE IV PRN ×2 (10:15→23:24)
[2022-12-29] MEDS: AMITRIPTYLINE HCL 50 MG TAB PO SCH (20:27)
[2022-12-30] MEDS: LEVOTHYROXINE SODIUM 25 MCG TABLET PO SCH (06:01)
[2022-12-30] MEDS: oxyCODONE HCL IR 5 MG TAB (IMMEDIATE RELEASE) PO PRN ×4 (06:01→18:29)
[2022-12-30] MEDS: PIPERACILLIN/TAZOBACTAM 4.5 GM in DEXTROSE 5% 100 ML IV SCH ×3 (08:34→23:59)
[2022-12-30] MEDS: PROPRANOLOL HCL LA 80 MG CAPCR PO SCH (08:34)
[2022-12-30] MEDS: FAMOTIDINE 20 MG in SYRINGE 3 ML IV SCH (08:34)
[2022-12-30] MEDS: SENNA 8.6 MG TAB PO SCH ×2 (08:35→21:07)
[2022-12-30] MEDS: POLYETHYLENE (MIRALAX) 17 GM PACK PO SCH ×2 (08:35→21:07)
[2022-12-30] MEDS: oxyBUTYnin chloride 5 MG TAB PO SCH ×2 (08:35→21:07)
[2022-12-30] MEDS: ENOXAPARIN INJ 40 MG/0.4 ML SYR SQ SCH (09:32)
--- NOTE | 2022-12-30 16:42 | Surgery Progress Note ---
Date of Service December 30, 2022 Assessment & Plan (1) History of bowel resection: Plan: 12/30/2022 Adelaida continues to improve. She does report that her abdomen feels tight. She is tolerating a low fiber diet- was encouraged to go slow. Stoma viable with output. Remains afebrile. Tentative plan for discharge early next week. Patient seen and examined with Dr. Keys. 12/29/2022 Continues to slowly improve. We will advance her to a low residue diet. She d oes not feel she is ready for discharge yet and I agree. Likely discharge plans for Sunday or Sunday of next week. We will also remove her nonfunctioning drain (2) Sepsis: (3) Peritonitis: Admission and Anticipated Discharge Date Admission Date: December 22, 2022 Supervising Physician Co-Signing Physician Notes She is overall doing well and tolerating low fiber diet with ostomy output We will continue to encourage ambulation and get her comfortable with her ostomy prior to discharge Tentative discharge for Sunday Subjective Patient reports that she is doing better today, reports that her abdomen does feel "tight." She continues to have stool output from her stoma. SARAH drain was pulled yesterday (12/29). She is tolerating a low fiber diet. Review of Systems Constitutional: no fever and no chills Respiratory: no cough and no dyspnea Gastrointestinal: + abdominal pain (improving. ); no nausea and no vomiting Physical Exam Physical Exam: Stoma viable and continues to have stool output. Constitutional: WD/WN, vitals as above Respiratory: normal respiratory effort; no respiratory distress and no labored breathing Gastrointestinal (Abdomen): Percussion/Palpation: + abdomen tender (appropriately tender- incision is CDI with no signs of infection. ) and abdomen soft Results & Data Vital Signs (Past 12 Hours) Vital Signs Temp Pulse Resp BP Pulse Ox O2 Del Method 12/30/22 15:41 36.8 C 71 16 123/81 97 Room Air 12/30/22 06:25 36.9 C 79 16 126/70 94 Room Air PG Care Time/CCT Total # of Minutes Spent Total Time Spent with Patient: Total time spent is greater than 50% in coordination of care (as documented) at patient's floor/unit and/or counseling patient: Coding Level of Care Code 36967 Post Operative Follow-Up Diagnoses History of bowel resection Z90.49 Sepsis A41.9 Peritonitis K65.9
[2022-12-30] MEDS: HYDROmorphone INJ 1 MG/ML SYRINGE IV PRN (21:07)
[2022-12-30] MEDS: AMITRIPTYLINE HCL 50 MG TAB PO SCH (21:07)
[2022-12-31] MEDS: LEVOTHYROXINE SODIUM 25 MCG TABLET PO SCH (05:55)
[2022-12-31] MEDS: oxyCODONE HCL IR 5 MG TAB (IMMEDIATE RELEASE) PO PRN ×2 (05:55→18:29)
[2022-12-31] MEDS: FAMOTIDINE 20 MG in SYRINGE 3 ML IV SCH (07:49)
[2022-12-31] MEDS: SENNA 8.6 MG TAB PO SCH ×2 (07:50→20:18)
[2022-12-31] MEDS: PIPERACILLIN/TAZOBACTAM 4.5 GM in DEXTROSE 5% 100 ML IV SCH ×3 (07:50→22:43)
[2022-12-31] MEDS: PROPRANOLOL HCL LA 80 MG CAPCR PO SCH (07:50)
[2022-12-31] MEDS: ENOXAPARIN INJ 40 MG/0.4 ML SYR SQ SCH (07:50)
[2022-12-31] MEDS: oxyBUTYnin chloride 5 MG TAB PO SCH ×2 (07:50→20:18)
[2022-12-31] MEDS: POLYETHYLENE (MIRALAX) 17 GM PACK PO SCH ×2 (07:50→20:18)
--- NOTE | 2022-12-31 09:35 | Surgery Progress Note ---
Date of Service December 31, 2022 Assessment & Plan (1) History of bowel resection: Plan: s/p exlap, sigmoidectomy, ostomy formation she complains of some abdominal tightness, similar to yesterday pt is passing flatus/stool via ostomy and tolerating a low fiber diet otherwise. no n/v continue to encourage ambulation likely home next day or so pending ongoing improvement in symptoms Admission and Anticipated Discharge Date Admission Date: December 22, 2022 Supervising Physician Co-Signing Physician Notes She is overall doing well and tolerating low fiber diet with ostomy output She does complain of some distention in her upper abdomen but again she is tolerating a diet She may need just some more time to work this through Subjective Patient feeling okay. Still with some "tightness" she describes and mild bloating. Otherwise she is tolerating a low fiber diet, no n/v. She is passing flatus/stool via ostomy. Physical Exam Physical Exam: awake/alert, no distress. sitting up in chair eating bfast Respiratory: normal respiratory effort Gastrointestinal (Abdomen): some mild distention. + ostomy functioning Results & Data Vital Signs (Past 12 Hours) Vital Signs Temp Pulse Resp BP Pulse Ox O2 Del Method 12/31/22 07:20 Room Air 12/31/22 07:22 36.6 C 78 16 114/69 97 Room Air PG Care Time/CCT Total # of Minutes Spent Total Time Spent with Patient: Total time spent is greater than 50% in coordination of care (as documented) at patient's floor/unit and/or counseling patient: Coding Level of Care Code 60835 Post Operative Follow-Up Diagnoses History of bowel resection Z90.49
[2022-12-31] MEDS: AMITRIPTYLINE HCL 50 MG TAB PO SCH (20:18)
[2022-12-31] MEDS: HYDROmorphone INJ 1 MG/ML SYRINGE IV PRN (21:49)
[2023-01-01] MEDS: oxyCODONE HCL IR 5 MG TAB (IMMEDIATE RELEASE) PO PRN ×2 (05:43→11:51)
[2023-01-01] MEDS: LEVOTHYROXINE SODIUM 25 MCG TABLET PO SCH (05:43)
[2023-01-01] MEDS: PIPERACILLIN/TAZOBACTAM 4.5 GM in DEXTROSE 5% 100 ML IV SCH (07:31)
[2023-01-01] MEDS: PROPRANOLOL HCL LA 80 MG CAPCR PO SCH (07:32)
[2023-01-01] MEDS: POLYETHYLENE (MIRALAX) 17 GM PACK PO SCH (07:32)
[2023-01-01] MEDS: FAMOTIDINE 20 MG in SYRINGE 3 ML IV SCH (07:32)
[2023-01-01] MEDS: ENOXAPARIN INJ 40 MG/0.4 ML SYR SQ SCH (07:33)
[2023-01-01] MEDS: oxyBUTYnin chloride 5 MG TAB PO SCH (07:33)
[2023-01-01] MEDS: SENNA 8.6 MG TAB PO SCH (07:33)
--- NOTE | 2023-01-01 09:00 | Surgery Progress Note ---
Date of Service January 01, 2023 Assessment & Plan (1) History of bowel resection: Plan: Doing well. She meets discharge criteria. Discussed home care. She is already taking care of her own stoma bag but I do believe visiting nurses are arranged. I would like to see her back in about 1 week in the office for follow-up Admission and Anticipated Discharge Date Admission Date: December 22, 2022 Subjective Patient seen. Feeling okay. She emptied her colostomy bag 7 or 8 times yesterday and is tolerating diet. She still has some fullness and pressure at the stoma site but otherwise no major complaints. Physical Exam Physical Exam: Alert and oriented no acute distress Incision looks great. Stoma intact and functioning Results & Data Vital Signs (Past 12 Hours) Vital Signs Temp Pulse Resp BP Pulse Ox O2 Del Method 01/01/23 07:30 Room Air 01/01/23 07:30 36.5 C 73 16 117/71 98 Room Air PG Care Time/CCT Total # of Minutes Spent Total Time Spent with Patient: Total time spent is greater than 50% in coordination of care (as documented) at patient's floor/unit and/or counseling patient: Coding Level of Care Code 78979 Post Operative Follow-Up Diagnoses History of bowel resection Z90.49
--- NOTE | 2023-01-02 06:41 | Communication Note ---
Date of Service: January 02, 2023 This is a 62-year-old female who had a recent exploratory laparotomy with abdominal washout and colostomy formation by Dr. Santoyo. She called the [facility] service earlier this morning secondary to nausea and vomiting throughout the night. Because of her surgical history advised her to come to the emergency department. Upon arrival to the emergency department the patient had labs ordered which are pending. I discussed the case with Dr. Santoyo and he instructed me to order a KUB which has been ordered and is pending. Further recommendations will be made based on her laboratory findings as well as findings on her KUB.
[2023-01-02] MEDS ORDERED: SODIUM CHLORIDE 0.9% 1000ML 1,000 ML IV SCH (06:45)
== END 2023-01-01 12:48 | disposition home health service (06) | DRG 853 ==
LOC: ED 12:32 → OR 15:03 → 3N 17:06

== ENCOUNTER 2023-01-02 05:56 | Inpatient (IN) ==
--- NOTE | 2023-01-02 06:42 | Communication Note ---
Date of Service: January 02, 2023 This is a 62-year-old female who had a recent exploratory laparotomy with abdominal washout and colostomy formation by Dr. Santoyo. [facility] the [facility] earlier this morning secondary to nausea and vomiting throughout the night. Because of her surgical history advised her to come to the emergency department. She was noted to be normotensive with a slight tachycardia with heart rate of 105. She is noted to be afebrile Upon arrival to the emergency department the patient had labs ordered which are pending. I discussed the case with Dr. Santoyo and he instructed me to order a KUB which has been ordered and is pending. Further recommendations will be made based on her laboratory findings as well as findings on her KUB.
[2023-01-02] MEDS ORDERED: SODIUM CHLORIDE 0.9% 500 ML IV ONE (06:58)
[2023-01-02] MEDS ORDERED: ONDANSETRON INJ 2 MG/ML 2 ML VIAL IV STA ×2 (06:58→08:31)
--- NOTE | 2023-01-02 07:09 | Emergency Department Note ---
History of Present Illness General Chief complaint: Vomiting Stated complaint: VOMITING,NAUSEA Time Seen by Provider: 01/02/23 06:49 Source: patient, RN notes reviewed and old records reviewed Mode of arrival: ambulatory Limitations: no limitations History of Present Illness Maximum Pain Intensity: 8 This patient is 62-year-old female who was discharged yesterday after having bowel surgery. She said she was doing okay until around 1230 she started getting nauseated she vomited twice that looked brown no blood. Her ostomy has had brown stool in it and she emptied it once overnight. No blood or black colors. She had no fever no dysuria no fall. No back pain she feels generally weak and tired. No chest pain she does feel somewhat short of breath when the pain comes. She had surgery done by Dr. Santoyo. Home Medications Medication Instructions Recorded Confirmed Type amitriptyline 25 mg tablet 50 mg PO HS #180 tabs 01/30/22 01/02/23 Rx cholecalciferol (vitamin D3) 25 25 mcg PO DAILY 01/30/22 01/02/23 History mcg (1,000 unit) chewable tablet omega-3 fatty acids-fish oil 360 1 cap PO DAILY 01/30/22 01/02/23 History mg-1,200 mg capsule (Fish Oil) oxybutynin chloride 5 mg tablet 5 mg PO BID #180 tabs 01/30/22 01/02/23 Rx turmeric root extract 500 mg 500 mg PO BID 01/30/22 01/02/23 History capsule propranolol 80 mg capsule,24 80 mg PO DAILY #90 caps 02/07/22 01/02/23 Rx hr,extended release levothyroxine 25 mcg tablet 12.5 mcg PO QAM 12/22/22 01/02/23 History (Synthroid) oxycodone-acetaminophen 5 mg-325 1 - 2 tab PO .q4-6h PRN pain, for 12/28/22 01/02/23 Rx mg tablet (Percocet) initial therapy, max 6 tabs per day #15 tabs Allergies Allergy/AdvReac Type Severity Reaction Status Date / Time Sulfa (Sulfonamide Allergy Unknown severe Unverified 01/30/22 09:55 Antibiotics) headache levothyroxine AdvReac Unknown tachycardia Unverified 01/30/22 09:55 Past Med/Surg History Medical History Anemia Asthma Brachial plexus injury, left Chiari malformation type I Decompression completed 2011 Graves' disease HTN (hypertension) Hypothyroid Migraine Mixed irritable bowel syndrome Urinary frequency Vitamin D deficiency Surgical History History of bowel resection (12/22/22) Exploratory laparotomy, sigmoid colectomy, abdominal washout, colostomy - Humphrey Santoyo, S/P EZE-BSO (~1997) Family History Father Myocardial infarction Bladder cancer Mother Skin cancer Alzheimer disease Denies family history of Ovarian cancer Prostate cancer Breast cancer Colorectal cancer Social History Smoking Status: Never smoker Second Hand Exposure: No; Do You Dip or Chew Tobacco: No; Hx Alcohol Use: Yes Alcohol type: hard liquor Alcohol Intake Frequency: 2-3 x/Week Hx Substance Use: No Preferred Language: Macanese Communication Ability: Effective Visual Impairment: No Limitations Hearing Ability: Normal Devulcanizer Operator Required: No Beliefs That Will Affect Care: None marital status: Current Living Situation: Spouse current occupational status: unemployed How many Children do You have: 3 Feels Safe at Home: Yes Childhood Exposure to Second-Hand Smoke: Yes caffeine: Yes (2 coffees a day ) Dental Care, Regularly: Yes Physical Activity Frequency: Daily Physical Activity Frequency Comment: walks a lot Seatbelt Use: always Sunscreen Use: No Assistive Devices: None Review of Systems A total of 10 systems reviewed and were otherwise negative Physical Exam Vital Signs Vital Signs - 24 hr 01/02/23 06:01 01/02/23 07:26 01/02/23 07:25 Temperature 36.6 C Temperature Source Temporal Artery Scan Pulse Rate 105 H 90 78 Pulse Rate from SpO2 Sensor 79 Pulse Rhythm Regular Pulse Strength Normal Respiratory Rate 20 28 H Respiratory Effort / Characteristics Non-Labored Spontaneous Respiratory Depth Normal Blood Pressure 126/47 L 137/70 Blood Pressure Mean 73 92 Pulse Oximetry 98 97 Oxygen Delivery Method Room Air Sepsis Recent Fever Within 48 Hours No Sepsis New/Unexplained Change in Mental Status N/A Sepsis Action Taken by Nursing No Action Required General: Well developed well nourished middle-age female who appears in no acute distress, breathing comfortably on room air. Normal speech HEENT: Normal cephalic atraumatic. Pupils are equal round and reactive to light. Sclera anicteric extraocular movements are intact. Oropharynx is pink with moist mucous membranes. No swelling of the mouth lips or tongue. Neck: Supple with a midline trachea. No meningeal signs or stiffness, no JVD or bruits. No Stridor. Chest: Clear to auscultation bilaterally. No wheezes or rhonchi. No increased work of breathing. Heart: Regular rate and rhythm without murmurs or gallops. Abdomen: Soft nontender, she does appear mildly distended. There is an ostomy in place that has small amount of brown stool in it there is a bandage that is intact centrally. Without rebound guarding or rigidity. Extremities: No cyanosis clubbing or edema. No calf tenderness or assymetry Spine/Back. Non tender to palpation. No CVA tenderness Skin: Good turgor without rashes. Neurologic exam: Cranial nerves two through 12 are intact. Motor and sensation are intact and symmetrical throughout. Course Administered Medications Morphine Sulfate (Morphine Sulfate 2 Mg/Ml Carp) 2 mg IV Q2H PRN PRN Reason: Severe Pain (Scale 7, 8, 9,10) Stop: 01/16/23 09:37 Last Admin: 01/02/23 10:41 Dose: 2 mg Documented By: SAMUEL Discontinued Medications Sodium Chloride (Nss) 500 mls @ 999 mls/hr IV .Q31M ONE Stop: 01/02/23 07:28 Last Infusion: 01/02/23 08:45 Dose: 0 mls/hr Documented By: Admin: 01/02/23 07:22 Dose: 999 mls/hr Documented By: SAMUEL Promethazine HCl 12.5 mg/ (Sodium Chloride) 50.5 mls @ 202 mls/hr IV NOW STA Stop: 01/02/23 09:52 Last Admin: 01/02/23 10:04 Dose: Not Given Documented By: SAMUEL Ondansetron HCl (Ondansetron Inj 2 Mg/Ml 2 Ml Vial) 4 mg IV NOW STA Stop: 01/02/23 06:59 Last Admin: 01/02/23 07:22 Dose: 4 mg Documented By: SAMUEL Ondansetron HCl (Ondansetron Inj 2 Mg/Ml 2 Ml Vial) 4 mg IV NOW STA Stop: 01/02/23 08:32 Last Admin: 01/02/23 08:40 Dose: 4 mg Documented By: SAMUEL Promethazine HCl (Promethazine 12.5 Mg/50.5 Ml Nss) Confirm Administered Dose 12.5 mg IV .STK-MED ONE Stop: 01/02/23 09:56 Last Admin: 01/02/23 10:04 Dose: 12.5 mg Documented By: SAMUEL Medical Decision Making Differential Diagnosis Bowel obstruction, constipation, postop complication, infection, abscess, electrolyte or metabolic abnormality, dehydration Medical Records Attestation: I reviewed the patient's medical records. Home Medications Current Medication List: was personally reviewed by me Laboratory Data Attestation: I reviewed the patient's lab results. 01/02/23 06:50 01/02/23 06:50 Lab Results 01/02/23 01/02/23 01/02/23 Range/Units 06:50 06:50 06:50 WBC 11.66 H (4.8-10.8) K/ul RBC 3.94 L (4.20-5.40) M/uL Hgb 12.7 (12.0-16.0) g/dl Hct 36.2 L (37.0-47.0) % MCV 91.9 (80.0-100.0) fL MCH 32.2 (25.0-34.0) pg MCHC 35.1 (32.0-36.0) g/dL RDW Std Deviation 41.9 (36.4-46.3) fL RDW Coeff of Janie 12.8 (11.5-14.5) % Plt Count 694 H (130-400) K/uL MPV 8.9 L (9.4-12.4) fL Immature Gran % (Auto) 1.5 % Neut % (Auto) 82.1 % Lymph % (Auto) 10.7 % [place] % (Auto) 4.4 % Eos % (Auto) 1.0 % Baso % (Auto) 0.3 % Neut # (Auto) 9.57 H (1.40-6.50) K/uL Lymph # (Auto) 1.25 (1.2-3.4) K/uL [place] # (Auto) 0.51 (0.11-0.59) K/uL Eos # (Auto) 0.12 (0-0.50) K/uL Baso # (Auto) 0.04 (0-0.2) K/uL Immature Gran # (Auto) 0.17 (0.01-0.20) K/uL Sodium 136 (136-145) mmol/L Potassium 3.7 (3.5-5.1) mmol/L Chloride 97 L (98-107) mmol/L Carbon Dioxide 29 (21-32) mmol/L Anion Gap 10 (3-11) BUN 8 (6-23) mg/dl Creatinine 0.80 (0.6-1.2) mg/dl Est Cr Clr Drug Dosing 75.2 ml/min Est GFR ( Amer) 90.9 ml/min Est GFR (Non-Af Amer) 78.5 ml/min BUN/Creatinine Ratio 10.0 (10-20) Glucose 134 H (70-99(Fasting)) mg/dl Lactate 1.5 (0.4-2.0) mmol/L Calcium 10.1 (8.6-10.3) mg/dl Total Bilirubin 0.5 (0.2-1.0) mg/dl AST 66 H (13-39) U/L ALT 118 H (7-52) U/L Alkaline Phosphatase 162 H (34-104) U/L Total Protein 7.6 (6.0-8.3) gm/dl Albumin 4.1 (3.4-5.0) gm/dl Globulin 3.5 (2.5-4.0) gm/dl Albumin/Globulin Ratio 1.2 (0.9-2) Lipase 95 H (11-82) U/L Imaging Data Attestation: I personally reviewed and interpreted this imaging study as follow s: My Impression: Acute abdominal series-no free air. No definite bowel obstruction there are few small air-fluid levels. Radiologist's Impression: Chest/Abdomen X-ray 01/02/23 06:23 XR abdomen 2V w PA chest HISTORY: 62 years-old Female ? sbo acute generalized abdominal pain with reported small bowel obstruction COMPARISON: CT 12/22/2022 TECHNIQUE: AP view of the chest with erect and supine views of the abdomen FINDINGS: Cardiomediastinal and hilar silhouettes are within normal limits. No pneumothorax, pleural effusion or pulmonary edema. Degenerative changes of the shoulders and spine. Benign-appearing bone island of the right humeral head. Midline skin evelina. Trace pneumoperitoneum. Radiodense material noted throughout the colon which is similar to prior. Air-filled loops of large and small bowel. IMPRESSION: 1. No acute process of the chest. 2. Midline skin evelina with trace pneumoperitoneum, likely postoperative. 3. Air-filled mildly dilated loops of large and small bowel suggestive of probable ileus. Follow-up recommended. ACT 112: Negative or not required by law. The above report was generated using voice recognition software. It may contain grammatical, syntax or spelling errors. Electronically signed by: Parminder Morrissey M.D. 01/02/2023 8:34 AM Gallbladder Ultrasound 01/02/23 08:20 ULTRASOUND RIGHT UPPER QUADRANT ABDOMEN CLINICAL HISTORY: Right upper quadrant abdominal pain. COMPARISON STUDY: Abdominal CT dated 12/22/2022. TECHNIQUE: Real-time, grayscale, and color flow sonography of the right upper quadrant of the abdomen was performed. Images are reviewed in the transverse and longitudinal planes. FINDINGS: Liver: The liver is normal in size and echotexture. There is no intrahepatic biliary ductal dilatation. The main portal vein is patent. Gallbladder: The gallbladder is normal in appearance. No gallstones are identified. There is no gallbladder wall thickening or pericholecystic fluid. A sonographic Aldana's sign is reportedly absent. The common bile duct measures up to 0.6 cm in diameter. Pancreas: Visualized portions of the pancreatic head and body are normal in appearance. The majority of the pancreas was not well visualized due to overlying bowel gas. Right kidney: Survey images of the right kidney demonstrate normal size and echotexture. There is no hydronephrosis. Ascites: There is trace perihepatic ascites. IMPRESSION: 1. The gallbladder is normal in appearance. No gallstones are identified. 2. Trace perihepatic ascites. ACT 112: Negative or not required by law. Electronically signed by: Gabe Calvin M.D. 01/02/2023 9:40 AM ECG Data Attestation: I personally reviewed and interpreted this ECG as follows: Indication: + abdominal pain Rate (beats per minute): 84 Rhythm: + normal sinus ECG Intervals/blocks: + Normal QRS, + Normal QT, + Normal AR and + Normal QT-c ECG Tofte: + Normal ECG ST segments: + Normal ST segments ECG Findings: + Poor R wave progression; no PACs or no PVCs Comparison ECG Date: from (12/27/2022) Change: the following changes noted (Anterior T wave inversions have improved) MDM Narrative This patient comes in as described above. She was placed on a library monitor in room B12. She is here for abdominal pain and vomiting she had surgery recently and was just discharged. Prior to me evaluating her apparently Chuck Crewsard had seen her and told her that Dr. Santoyo was can stop by and see her. In the meantime I did order IV hydration and IV Zofran blood work had already been ordered as did x-rays. She was reassessed. Her white count was mildly elevated 11. She has no significant anemia. She has no significant acrylate or metabolic abnormalities. Liver functions and lipase were mildly elevated. Acute abdominal series was done and showed no definite obstruction or free air. EKG did not show any ischemic changes or ectopy. The patient did require additional IV Zofran. Gallbladder ultrasound was negative. COVID testing was negative. Dr. Santoyo did see her in the ER and is going to admit/observe her for further inpatient treatment and evaluation. Continuous cardiac monitoring: Orders placed in EMR for continuous library monitor. Upon my evaluation she was noted to be in normal sinus rhythm with a rate of 90 Impression & Plan Abdominal pain, Nausea & vomiting, History of creation of ostomy, H/O abdominal surgery, Lab test negative for COVID-19 virus Discharge Plan Visit Data Chief Complaint: Vomiting Stated Complaint: VOMITING,NAUSEA ED Provider: Karl Melendez Discharge Problem: Abdominal pain, Nausea & vomiting, History of creation of ostomy, H/O abdominal surgery, Lab test negative for COVID-19 virus Discharge Instructions Interventions: ED Discharge Assessment Last Done: 01/02/23 11:04
[2023-01-02 07:14] LABS: Basophils # (auto) 0.04 K/uL (0-0.2); Basophils % (auto) 0.3 %; Eosinophils # (auto) 0.12 K/uL (0-0.50); Hematocrit (blood only) 36.2 % (37.0-47.0); Hemoglobin 12.7 g/dl (12.0-16.0); Immature Granulocytes # (auto) 0.17 K/uL (0.01-0.20); Immature Granulocytes % (auto) 1.5 %; Lymphocytes # (auto) 1.25 K/uL (1.2-3.4); Lymphocytes % (auto) 10.7 %; Mean Corpuscular Hemoglobin 32.2 pg (25.0-34.0); Mean Corpuscular Hgb Conc 35.1 g/dL (32.0-36.0); Mean Corpuscular Volume 91.9 fL (80.0-100.0); Mean Platelet Volume 8.9 fL (9.4-12.4); Monocytes # (auto) 0.51 K/uL (0.11-0.59); Monocytes % (auto) 4.4 %; Neutrophils # (auto) 9.57 K/uL (1.40-6.50); Neutrophils % (auto) 82.1 %; Platelet Count 694 K/uL (130-400); RDW Coefficient of Variation 12.8 % (11.5-14.5); RDW Standard Deviation 41.9 fL (36.4-46.3); Red Blood Count 3.94 M/uL (4.20-5.40); White Blood Count 11.66 K/ul (4.8-10.8)
[2023-01-02 07:34] LABS: Albumin Globulin Ratio 1.2 (0.9-2); Albumin Level 4.1 gm/dl (3.4-5.0); Bilirubin,Total 0.5 mg/dl (0.2-1.0); Calcium 10.1 mg/dl (8.6-10.3); Creatinine Clr Calc Pharmacy 75.2 ml/min; Est GFR (African American) 90.9 ml/min; Est GFR (Non-African American) 78.5 ml/min; Globulin 3.5 gm/dl (2.5-4.0); Potassium 3.7 mmol/L (3.5-5.1); Total Protein 7.6 gm/dl (6.0-8.3)
--- NOTE | 2023-01-02 08:36 | XRay Report ---
XR abdomen 2V w PA chest HISTORY: 62 years-old Female ? sbo acute generalized abdominal pain with reported small bowel obstru ction COMPARISON: CT 12/22/2022 TECHNIQUE: AP view of the chest with erect and supine views of the abdomen FINDINGS: Cardiomediastinal and hilar silhouettes are within normal limits. No pneumothorax, pleural effusion o r pulmonary edema. Degenerative changes of the shoulders and spine. Benign-appearing bone island of t he right humeral head. Midline skin evelina. Trace pneumoperitoneum. Radiodense material noted throughout the colon which is similar to prior. Air-filled loops of large and small bowel. IMPRESSION: 1. No acute process of the chest. 2. Midline skin evelina with trace pneumoperitoneum, likely postoperative. 3. Air-filled mildly dilated loops of large and small bowel suggestive of probable ileus. Follow-up r ecommended. ACT 112: Negative or not required by law. The above report was generated using voice recognition software. It may contain grammatical, syntax o r spelling errors. Electronically signed by: Parminder Morrissey M.D. 01/02/2023 8:34 AM
--- NOTE | 2023-01-02 08:41 | Surgery Progress Note ---
Date of Service January 02, 2023 Assessment & Plan (1) Nausea & vomiting: Plan: This is a 62yF with a PMH of fibromyalgia, chiari malformation, hypothyroid and recent history of exploratory laparotomy, sigmoid colectomy, and creation of ostomy on 12/22/[address] Santoyo who presents to the [facility] ED on 01/02/23 with nausea/vomiting. Of significance the patient was admitted from 12/22/22 and was discharged to home yesterday after undergoing the above operation for perforated sigmoid. Unfortunately, yesterday evening around midnight the patient started to feel nauseated and threw up which continued into this AM. In the ER she underwent a KUB that revealed no acute process and probable ileus. Labs reveal WBC 11.7, Hbg 12, Cr 0.8, some elevation of LFTs with AST 66, ALT 118, Alkp 162, tbili normal at 0.5. On exam patient's abdomen is softly distended with mild tenderness across upper abdomen. Ostomy has + gas/stool in bag. Would order UA and Covid for further infectious testing. In addition due to elevation of LFTs a RUQ for further evaluation. We will admit the patient under observation status and keep her npo with ivf and anti-emetics in the meantime until symptoms improve. Subjective This is a 62yF with a PMH of fibromyalgia, chiari malformation, hypothyroid and recent s/p exploratory laparotomy, sigmoid colectomy, and creation of ostomy on 12/22/[address] Santoyo who presents to the [facility] ED on 01/02/23 with nausea/vomiting. Of significance the patient was admitted from 12/22/22 and was discharged to home yesterday after undergoing the above operation for perforated sigmoid. Her post op course was fairly uncomplicated and her diet was advanced as tolerated as bowel function resumed. Unfortunately, yesterday evening around midnight the patient started to feel nauseated and threw up. She went to bed, but then woke up with AM around 5:30 with ongoing emesis. She reports some mild abdominal discomfort associated with this, but the n/v is what bothered her the most and prompted her to come in. She did notice a slight decrease in gas/stool in her ostomy bag during this time. as above. pt seen. appears mild ileus...? etiology. will check covid test and UA. gallbladder US negative..... ? etiology of elevated LFT's. will give IVF and monitor symptoms/labs. supportive care. Review of Systems Constitutional: no fever and no chills Respiratory: no dyspnea Cardiovascular: no chest pain Gastrointestinal: + abdominal pain, + bloating, + nausea and + vomiting Physical Exam Physical Exam: awake/alert, somewhat tearful Constitutional: no acute distress Respiratory: normal respiratory effort Gastrointestinal (Abdomen): Inspection/Auscultation: + abdomen distended (mild) and + abdominal surgical incision (c/d/i) Percussion/Palpation: + abdomen tender (mild discomfort in upper abdominal region) and abdomen soft ostomy with + stool/gas in bag Results & Data Vital Signs (Past 12 Hours) Vital Signs Temp Pulse Resp BP Pulse Ox O2 Del Method 01/02/23 07:25 78 28 H 137/70 97 01/02/23 07:26 90 01/02/23 06:01 36.6 C 105 H 20 126/47 L 98 Room Air Diagnostic Findings XR abdomen 2V w PA chest HISTORY: 62 years-old Female ? sbo acute generalized abdominal pain with reported small bowel obstruction COMPARISON: CT 12/22/2022 TECHNIQUE: AP view of the chest with erect and supine views of the abdomen FINDINGS: Cardiomediastinal and hilar silhouettes are within normal limits. No pneumothorax, pleural effusion or pulmonary edema. Degenerative changes of the shoulders and spine. Benign-appearing bone island of the right humeral head. Midline skin evelina. Trace pneumoperitoneum. Radiodense material noted throughout the colon which is similar to prior. Air-filled loops of large and small bowel. IMPRESSION: 1. No acute process of the chest. 2. Midline skin evelina with trace pneumoperitoneum, likely postoperative. 3. Air-filled mildly dilated loops of large and small bowel suggestive of probable ileus. Follow-up recommended. ACT 112: Negative or not required by law. The above report was generated using voice recognition software. It may contain grammatical, syntax or spelling errors Electronically signed by: Parminder Morrissey M.D. 01/02/2023 8:34 AM PG Care Time/CCT Total # of Minutes Spent Total Time Spent with Patient: Total time spent is greater than 50% in coordination of care (as documented) at patient's floor/unit and/or counseling patient: Coding Level of Care Code None Diagnoses Nausea & vomiting R11.2
[2023-01-02] MEDS ORDERED: PROMETHAZINE HCL 12.5 MG in SODIUM CHLORIDE 0.9% 50 ML IV STA (09:38)
--- NOTE | 2023-01-02 09:41 | Ultrasound Report ---
ULTRASOUND RIGHT UPPER QUADRANT ABDOMEN CLINICAL HISTORY: Right upper quadrant abdominal pain. COMPARISON STUDY: Abdominal CT dated 12/22/2022. TECHNIQUE: Real-time, grayscale, and color flow sonography of the right upper quadrant of the abdomen was performed. Images are reviewed in the transverse and longitudinal planes. FINDINGS: Liver: The liver is normal in size and echotexture. There is no intrahepatic biliary ductal dilatatio n. The main portal vein is patent. Gallbladder: The gallbladder is normal in appearance. No gallstones are identified. There is no gallb ladder wall thickening or pericholecystic fluid. A sonographic Aldana's sign is reportedly absent. Th e common bile duct measures up to 0.6 cm in diameter. Pancreas: Visualized portions of the pancreatic head and body are normal in appearance. The majority of the pancreas was not well visualized due to overlying bowel gas. Right kidney: Survey images of the right kidney demonstrate normal size and echotexture. There is no hydronephrosis. Ascites: There is trace perihepatic ascites. IMPRESSION: 1. The gallbladder is normal in appearance. No gallstones are identified. 2. Trace perihepatic ascites. ACT 112: Negative or not required by law. Electronically signed by: Gabe Calvin M.D. 01/02/2023 9:40 AM
[2023-01-02] MEDS ORDERED: PROMETHAZINE 12.5 MG/50.5 ML NSS IV ONE (09:55)
[2023-01-02] MEDS: MoRPHine SULFATE 2 MG/ML CARP IV PRN ×2 (10:41→23:25)
[2023-01-02] MEDS ORDERED: oxyCODONE/ACETAMINOPHEN 5mg/325mg TAB PO PRN (11:04)
[2023-01-02] MEDS ORDERED: ONDANSETRON INJ 2 MG/ML 2 ML VIAL IV PRN (11:04)
[2023-01-02 11:07] LABS: Appearance Urine Turbid (Clear); Bacteria Urine Automated Negative (Negative); Bilirubin Urine Negative (Negative); Blood Urine Negative (Negative); Color Urine Yellow; Epithelial Cell Urine Auto >30 /lpf (0-5); Glucose Urine UA Negative (Negative); Ketones Urine 1+ (Negative); Leukocyte Esterase Urine Negative (Negative); Nitrite Urine Negative (Negative); Protein Urine Negative (Negative); RBC Urine Automated 0-4 /hpf (0-4); Specific Gravity Urine 1.009 (1.000-1.030); Urobilinogen Urine Negative (Negative); pH Urine >= 9.0 (4.5-7.5)
[2023-01-02] MEDS: PROPRANOLOL HCL LA 80 MG CAPCR PO SCH (12:06)
[2023-01-02] MEDS: LEVOTHYROXINE SODIUM 25 MCG TABLET PO SCH (12:06)
[2023-01-02] MEDS: D5W AND 1/2NSS 1,000 ML IV SCH ×2 (12:06→22:39)
[2023-01-02] MEDS: oxyBUTYnin chloride 5 MG TAB PO SCH ×2 (12:06→22:39)
--- NOTE | 2023-01-02 14:11 | Discharge Summary ---
Date of Service January 01, 2023 Principal Diagnosis Pneumatosis intestinalis of large intestine Discharge Exam Alert and oriented no acute distress Incision looks great. Stoma intact and functioning (per surgical progress note) Discharge Data Allergies Allergy/AdvReac Type Severity Reaction Status Date / Time Sulfa (Sulfonamide Allergy Unknown severe Unverified 01/30/22 09:55 Antibiotics) headache levothyroxine AdvReac Unknown tachycardia Unverified 01/30/22 09:55 Hospital Course (1) Colon perforation: You presented to the ER 12/22/22 and underwent Exploratory laparotomy, sigmoid colectomy, abdominal washout, colostomy. You were admitted to the hospital post procedure. You were given an NG tube, IV antibiotics, SARAH drain, Amaya catheter, DVT prophylaxis, and stool softeners to facilitate bowel functioning. Your colostomy started functioning, you were tolerating a low fiber diet and you met discharge criteria and your SARAH drain and amaya catheter was removed. You were taught how to care for your colostomy and surgical incisions prior to discharge and were instructed to follow up with Dr. Santoyo in the office. You were discharged on 01/01/23 in stable condition. Total Time Total Time Spent Total Time Spent (In Minutes): 20 Discharge Plan Discharge Items Patient Disposition: Home - Self-Care Reason For Visit: NAUSEA / VOMITING Follow-up/Referrals: Karl Fu DO [Primary Care Provider] - Stand-Alone Forms: My [facility], Smoking Cessation Medications and DC Order Prescriptions: No Action propranolol 80 mg capsule,extended release 24 hr 80 mg PO DAILY Qty: 90 3RF turmeric root extract 500 mg capsule 500 mg PO BID cholecalciferol (vitamin D3) 25 mcg (1,000 unit) tablet,chewable 25 mcg PO DAILY Rx Instructions: takes 650 mg daily omega-3 fatty acids-fish oil [Fish Oil] 360-1,200 mg capsule 1 cap PO DAILY amitriptyline 25 mg tablet 50 mg PO HS Qty: 180 3RF oxybutynin chloride 5 mg tablet 5 mg PO BID Qty: 180 3RF levothyroxine [Synthroid] 25 mcg tablet 12.5 mcg PO QAM Rx Instructions: takes half tablet every morning oxycodone-acetaminophen [Percocet] 5-325 mg tablet 1 - 2 tab PO .q4-6h PRN (Reason: pain, for initial therapy, max 6 tabs per day) Qty: 15 0RF Admission Data Admit Date/Time: 01/02/23 08:40 Attending Provider: Humphrey Santoyo Admit Provider: Humphrey Santoyo Primary Care Provider: Karl Fu Coding Level of Care Code 50323 IN/OBS DISCH 30 MIN/LESS Diagnoses Colon perforation K63.1
[2023-01-02] MEDS: ACETAMINOPHEN 325 MG TAB PO PRN (15:15)
[2023-01-02] MEDS: PROMETHAZINE HCL 25 MG in SODIUM CHLORIDE 0.9% 50 ML IV PRN (17:15)
--- NOTE | 2023-01-02 17:44 | Electrocardiogram Report ---
Test Reason : Blood Pressure : / mmHG Vent. Rate : 084 BPM Atrial Rate : 084 BPM P-R Int : 166 ms QRS Dur : 090 ms QT Int : 370 ms P-R-T Axes : 074 024 052 degrees QTc Int : 437 ms Normal sinus rhythm Possible Anterior infarct , age undetermined Abnormal ECG When compared with ECG of 27-DEC-2022 17:20, T wave inversion less evident in Anterior leads Confirmed by Kodak Garcia ([id number]) on 01/02/2023 5:44:22 PM Referred By: REFERRED SELF Confirmed By:Kodak Garcia
[2023-01-02] MEDS: oxyCODONE/ACETAMINOPHEN 5mg/325mg TAB PO PRN (20:17)
[2023-01-02] MEDS: AMITRIPTYLINE HCL 50 MG TAB PO SCH (22:39)
[2023-01-03] MEDS: PROMETHAZINE HCL 25 MG in SODIUM CHLORIDE 0.9% 50 ML IV PRN (02:10)
[2023-01-03 05:15] LABS: Basophils # (auto) 0.03 K/uL (0-0.2); Basophils % (auto) 0.4 %; Eosinophils # (auto) 0.34 K/uL (0-0.50); Hematocrit (blood only) 29.7 % (37.0-47.0); Immature Granulocytes % (auto) 1.2 %; Lymphocytes # (auto) 1.62 K/uL (1.2-3.4); Mean Corpuscular Hemoglobin 32.5 pg (25.0-34.0); Mean Corpuscular Hgb Conc 33.7 g/dL (32.0-36.0); Mean Corpuscular Volume 96.4 fL (80.0-100.0); Monocytes # (auto) 0.79 K/uL (0.11-0.59); Monocytes % (auto) 9.3 %; Neutrophils # (auto) 5.63 K/uL (1.40-6.50); Neutrophils % (auto) 66.1 %; Platelet Count 558 K/uL (130-400); RDW Coefficient of Variation 13.4 % (11.5-14.5); RDW Standard Deviation 46.3 fL (36.4-46.3); Red Blood Count 3.08 M/uL (4.20-5.40); White Blood Count 8.51 K/ul (4.8-10.8)
[2023-01-03 05:57] LABS: Albumin Level 3.2 gm/dl (3.4-5.0); BUN Creatinine Ratio 10.1 (10-20); Bilirubin Direct 0.1 mg/dl (0-0.2); Bilirubin,Total 0.4 mg/dl (0.2-1.0); Calcium 8.7 mg/dl (8.6-10.3); Creatinine Clr Calc Pharmacy 87.2 ml/min; Est GFR (African American) 107.4 ml/min; Est GFR (Non-African American) 92.6 ml/min; Potassium 3.3 mmol/L (3.5-5.1); Total Protein 5.8 gm/dl (6.0-8.3)
[2023-01-03] MEDS: LEVOTHYROXINE SODIUM 25 MCG TABLET PO SCH (06:53)
--- NOTE | 2023-01-03 08:23 | Surgery Progress Note ---
Date of Service January 03, 2023 Assessment & Plan (1) H/O abdominal surgery: Plan: Labs are all improving including her white count and LFTs. She has been afebrile COVID and urinalysis negative Question viral etiology. We will recheck KUB today. We will start clear liquid diet and see how she does. She is not ready for discharge yet but if she continues to improve potentially tomorrow We will add some Toradol for her headache Replace potassium Admission and Anticipated Discharge Date Admission Date: January 03, 2023 Subjective Patient seen. She is complaining of a headache now. The nausea she had yesterday seems to have resolved at least this morning. Her stoma continues to put out stool. Physical Exam Physical Exam: Alert. No acute distress Abdomen is soft with minimal tenderness. Less distention around the stoma today. Results & Data Vital Signs (Past 12 Hours) Vital Signs Pulse Resp BP Pulse Ox 01/03/23 06:00 65 16 117/64 97 01/03/23 05:00 68 16 119/68 96 01/03/23 04:00 61 20 111/65 95 01/03/23 03:00 67 16 107/60 95 01/03/23 02:00 68 12 105/63 96 01/03/23 01:30 65 14 96 01/03/23 00:00 61 20 130/75 95 01/02/23 23:00 67 14 124/70 95 01/02/23 23:10 67 01/02/23 22:30 71 18 97 01/02/23 22:00 81 22 142/79 H 95 01/02/23 21:00 67 18 130/75 96 PG Care Time/CCT Total # of Minutes Spent Total Time Spent with Patient: Total time spent is greater than 50% in coordination of care (as documented) at patient's floor/unit and/or counseling patient: Coding Level of Care Code 54996 Post Operative Follow-Up Diagnoses H/O abdominal surgery Z98.890
[2023-01-03] MEDS: D5W AND 1/2NSS 1,000 ML IV SCH (09:22)
[2023-01-03] MEDS: KETOROLAC 30 MG/ML VIAL IV PRN ×2 (09:27→19:15)
[2023-01-03] MEDS: SENNA 8.6 MG TAB PO SCH ×2 (10:21→20:15)
[2023-01-03] MEDS: PROPRANOLOL HCL LA 80 MG CAPCR PO SCH (10:21)
[2023-01-03] MEDS: POLYETHYLENE (MIRALAX) 17 GM PACK PO SCH ×2 (10:21→20:16)
[2023-01-03] MEDS: ACETAMINOPHEN 325 MG TAB PO PRN ×2 (10:23→20:16)
[2023-01-03] MEDS: POTASSIUM CHLORIDE / WTR 10 MEQ/100 ML PLCT IV SCH ×2 (10:25→11:38)
[2023-01-03] MEDS: oxyBUTYnin chloride 5 MG TAB PO SCH ×2 (10:36→20:16)
[2023-01-03] MEDS: D5W AND 1/2NSS + 20MEQ KCL 20 MEQ/1,000 ML BAG IV SCH (12:54)
--- NOTE | 2023-01-03 14:46 | XRay Report ---
KUB HISTORY: Acute nausea with vomiting N/V COMPARISON: 01/02/2023 radiographs FINDINGS: Midline skin evelina of the abdomen. Air-filled loops of large and small bowel are noted wi th mild dilation. Small bowel loops measure up to 3.7 cm. Previously noted pneumoperitoneum is no oscar felix identified. Right hemidiaphragmatic elevation. No renal calculi. No ureteral calculi. No pneumop eritoneum or pneumatosis. No fracture. IMPRESSION: Persistent mildly dilated loops of small bowel suggestive of postoperative ileus versus obstruction. Continued follow-up recommended. ACT 112: Negative or not required by law. The above report was generated using voice recognition software. It may contain grammatical, syntax o r spelling errors. Electronically signed by: Parminder Morrissey M.D. 01/03/2023 2:44 PM
[2023-01-03] MEDS: oxyCODONE/ACETAMINOPHEN 5mg/325mg TAB PO PRN (15:39)
[2023-01-03] MEDS: AMITRIPTYLINE HCL 50 MG TAB PO SCH (20:15)
[2023-01-04] MEDS: D5W AND 1/2NSS + 20MEQ KCL 20 MEQ/1,000 ML BAG IV SCH ×2 (00:55→11:25)
[2023-01-04] MEDS: LEVOTHYROXINE SODIUM 25 MCG TABLET PO SCH (06:06)
[2023-01-04] MEDS: POLYETHYLENE (MIRALAX) 17 GM PACK PO SCH ×2 (08:41→20:46)
[2023-01-04] MEDS: oxyBUTYnin chloride 5 MG TAB PO SCH ×2 (08:42→20:46)
[2023-01-04] MEDS: PROPRANOLOL HCL LA 80 MG CAPCR PO SCH (08:42)
[2023-01-04] MEDS: SENNA 8.6 MG TAB PO SCH ×2 (08:42→20:46)
[2023-01-04 10:32] LABS: Hematocrit (blood only) 31.3 % (37.0-47.0); Hemoglobin 10.3 g/dl (12.0-16.0); Mean Corpuscular Hemoglobin 31.9 pg (25.0-34.0); Mean Corpuscular Hgb Conc 32.9 g/dL (32.0-36.0); Mean Corpuscular Volume 96.9 fL (80.0-100.0); Red Blood Count 3.23 M/uL (4.20-5.40); White Blood Count 7.12 K/ul (4.8-10.8)
[2023-01-04 10:33] LABS: Basophils # (auto) 0.03 K/uL (0.00-0.20); Basophils % (auto) 0.4 %; Eosinophils # (auto) 0.26 K/uL (0.00-0.50); Eosinophils % (auto) 3.7 %; Immature Granulocytes # (auto) 0.05 K/uL (0.01-0.20); Immature Granulocytes % (auto) 0.7 %; Lymphocytes # (auto) 0.91 K/uL (1.20-3.40); Lymphocytes % (auto) 12.8 %; Mean Platelet Volume 8.8 fL (9.4-12.4); Monocytes # (auto) 0.51 K/uL (0.11-0.59); Monocytes % (auto) 7.2 %; Neutrophils # (auto) 5.36 K/uL (1.40-6.50); Neutrophils % (auto) 75.2 %; Platelet Count 641 K/uL (130-400); RDW Coefficient of Variation 13.2 % (11.5-14.5); RDW Standard Deviation 45.6 fL (36.4-46.3)
[2023-01-04 10:51] LABS: Albumin Globulin Ratio 1.3 (0.9-2); Albumin Level 3.5 gm/dl (3.4-5.0); BUN Creatinine Ratio 6.6 (10-20); Bilirubin,Total 0.3 mg/dl (0.2-1.0); Calcium 8.9 mg/dl (8.6-10.3); Creatinine Clr Calc Pharmacy 98.7 ml/min; Est GFR (African American) 111.8 ml/min; Est GFR (Non-African American) 96.5 ml/min; Globulin 2.7 gm/dl (2.5-4.0); Potassium 3.5 mmol/L (3.5-5.1); Total Protein 6.2 gm/dl (6.0-8.3)
[2023-01-04] MEDS ORDERED: POTASSIUM CHLORIDE CRTAB 20 MEQ TABCR PO STA (11:16)
--- NOTE | 2023-01-04 13:37 | Surgery Progress Note ---
Date of Service January 04, 2023 Assessment & Plan (1) History of creation of ostomy: (2) Ileus following gastrointestinal surgery: Plan: Her main issue appears to be ileus. This appears to be clinically improving. We will recheck KUB tomorrow. We will go ahead and increase her to full liquids since she is tolerating clear liquids nicely. Continue to replace electrolytes. Admission and Anticipated Discharge Date Admission Date: January 03, 2023 Subjective Patient seen. Feeling better than yesterday. Tolerating clear liquids and would like to try full liquids. Stoma continues to put out high amounts of gas and liquid stool Physical Exam Physical Exam: Alert. No acute distress Abdomen is soft with mild distention. Stoma functioning nicely Results & Data Vital Signs (Past 12 Hours) Vital Signs Temp Pulse Resp BP Pulse Ox O2 Del Method 01/04/23 07:45 36.6 C 83 16 112/73 97 Room Air PG Care Time/CCT Total # of Minutes Spent Total Time Spent with Patient: Total time spent is greater than 50% in coordination of care (as documented) at patient's floor/unit and/or counseling patient: Coding Level of Care Code 23602 Post Operative Follow-Up Diagnoses History of creation of ostomy Z93.9 Ileus following gastrointestinal surgery K91.89; K56.7
[2023-01-04] MEDS: KETOROLAC 30 MG/ML VIAL IV PRN (16:38)
[2023-01-04] MEDS: AMITRIPTYLINE HCL 50 MG TAB PO SCH (20:46)
[2023-01-05] MEDS: LEVOTHYROXINE SODIUM 25 MCG TABLET PO SCH (05:44)
[2023-01-05 08:19] LABS: Basophils # (auto) 0.03 K/uL (0.00-0.20); Basophils % (auto) 0.5 %; Eosinophils # (auto) 0.23 K/uL (0.00-0.50); Eosinophils % (auto) 3.8 %; Hematocrit (blood only) 34.7 % (37.0-47.0); Hemoglobin 11.4 g/dl (12.0-16.0); Immature Granulocytes # (auto) 0.05 K/uL (0.01-0.20); Immature Granulocytes % (auto) 0.8 %; Lymphocytes # (auto) 1.08 K/uL (1.20-3.40); Mean Corpuscular Hemoglobin 32.3 pg (25.0-34.0); Mean Corpuscular Hgb Conc 32.9 g/dL (32.0-36.0); Mean Corpuscular Volume 98.3 fL (80.0-100.0); Mean Platelet Volume 8.8 fL (9.4-12.4); Monocytes # (auto) 0.45 K/uL (0.11-0.59); Monocytes % (auto) 7.5 %; Neutrophils # (auto) 4.15 K/uL (1.40-6.50); Neutrophils % (auto) 69.4 %; Platelet Count 709 K/uL (130-400); RDW Coefficient of Variation 13.5 % (11.5-14.5); RDW Standard Deviation 47.5 fL (36.4-46.3); Red Blood Count 3.53 M/uL (4.20-5.40); White Blood Count 5.99 K/ul (4.8-10.8)
--- NOTE | 2023-01-05 08:57 | Surgery Progress Note ---
Date of Service January 05, 2023 Assessment & Plan (1) Ileus following gastrointestinal surgery: Plan: X-ray looks to me essentially unchanged. She continues to have symptoms of persistent ileus although she is tolerating liquids. I do not believe she is ready for discharge yet. We will continue to monitor her. Hopefully discharge in the next day or 2. [facility] surgeons covering for the weekend. We will continue to replace electrolytes as necessary. Admission and Anticipated Discharge Date Admission Date: January 03, 2023 Subjective Patient seen. She is tolerating full liquid diet with no nausea or vomiting. She does continue to feel distended. She had a fair amount of stool output yesterday but not much overnight into this morning. Physical Exam Physical Exam: Alert. No acute distress Abdomen is soft with mild distention. Stoma looks good with loose brown stool Results & Data Vital Signs (Past 12 Hours) Vital Signs Temp Pulse Resp BP BP Pulse Ox O2 Del Method 01/05/23 07:07 36.8 C 72 16 105/65 97 Room Air 01/04/23 23:24 36.7 C 66 18 114/69 97 Room Air PG Care Time/CCT Total # of Minutes Spent Total Time Spent with Patient: Total time spent is greater than 50% in coordination of care (as documented) at patient's floor/unit and/or counseling patient: Coding Level of Care Code 72509 Post Operative Follow-Up Diagnoses Ileus following gastrointestinal surgery K91.89; K56.7
--- NOTE | 2023-01-05 09:13 | XRay Report ---
KUB HISTORY: Acute generalized abdominal pain eval bowel/gas pattern COMPARISON: 01/03/2023 FINDINGS: Midline abdominal skin evelina. Air filled loops of large and small bowel with mildly impro edi small bowel distention. No renal calculi. No ureteral calculi. No pneumoperitoneum or pneumatosi s. No fracture. IMPRESSION: Air-filled loops of large and small bowel suggestive of probable ileus. Continued follow-up recommend ed. ACT 112: Negative or not required by law. The above report was generated using voice recognition software. It may contain grammatical, syntax o r spelling errors. Electronically signed by: Parminder Morrissey M.D. 01/05/2023 9:11 AM
[2023-01-05] MEDS: POLYETHYLENE (MIRALAX) 17 GM PACK PO SCH ×2 (09:21→20:36)
[2023-01-05] MEDS: SENNA 8.6 MG TAB PO SCH ×2 (09:21→20:35)
[2023-01-05] MEDS: oxyBUTYnin chloride 5 MG TAB PO SCH ×2 (09:21→20:34)
[2023-01-05] MEDS: PROPRANOLOL HCL LA 80 MG CAPCR PO SCH (09:22)
[2023-01-05 14:34] LABS: Potassium 4.3 mmol/L (3.5-5.1)
[2023-01-05 14:35] LABS: Albumin Globulin Ratio 1.3 (0.9-2); Albumin Level 3.9 gm/dl (3.4-5.0); BUN Creatinine Ratio 7.4 (10-20); Bilirubin,Total 0.5 mg/dl (0.2-1.0); Calcium 9.5 mg/dl (8.6-10.3); Creatinine Clr Calc Pharmacy 88.5 ml/min; Est GFR (African American) 107.9 ml/min; Est GFR (Non-African American) 93.1 ml/min; Total Protein 6.9 gm/dl (6.0-8.3)
[2023-01-05] MEDS: AMITRIPTYLINE HCL 50 MG TAB PO SCH (20:34)
[2023-01-06] MEDS: LEVOTHYROXINE SODIUM 25 MCG TABLET PO SCH (05:25)
[2023-01-06 06:08] LABS: Basophils # (auto) 0.04 K/uL (0.00-0.20); Basophils % (auto) 0.7 %; Eosinophils # (auto) 0.36 K/uL (0.00-0.50); Eosinophils % (auto) 6.6 %; Hematocrit (blood only) 31.1 % (37.0-47.0); Hemoglobin 10.6 g/dl (12.0-16.0); Immature Granulocytes # (auto) 0.04 K/uL (0.01-0.20); Immature Granulocytes % (auto) 0.7 %; Lymphocytes # (auto) 1.54 K/uL (1.20-3.40); Lymphocytes % (auto) 28.1 %; Mean Corpuscular Hemoglobin 32.6 pg (25.0-34.0); Mean Corpuscular Hgb Conc 34.1 g/dL (32.0-36.0); Mean Corpuscular Volume 95.7 fL (80.0-100.0); Mean Platelet Volume 8.8 fL (9.4-12.4); Monocytes # (auto) 0.58 K/uL (0.11-0.59); Monocytes % (auto) 10.6 %; Neutrophils # (auto) 2.93 K/uL (1.40-6.50); Neutrophils % (auto) 53.3 %; Platelet Count 634 K/uL (130-400); RDW Coefficient of Variation 13.2 % (11.5-14.5); RDW Standard Deviation 46.4 fL (36.4-46.3); Red Blood Count 3.25 M/uL (4.20-5.40); White Blood Count 5.49 K/ul (4.8-10.8)
[2023-01-06 06:24] LABS: Albumin Globulin Ratio 1.4 (0.9-2); Albumin Level 3.7 gm/dl (3.4-5.0); BUN Creatinine Ratio 7.4 (10-20); Bilirubin,Total 0.4 mg/dl (0.2-1.0); Calcium 9.3 mg/dl (8.6-10.3); Creatinine Clr Calc Pharmacy 88.5 ml/min; Est GFR (African American) 107.9 ml/min; Est GFR (Non-African American) 93.1 ml/min; Globulin 2.7 gm/dl (2.5-4.0); Potassium 3.9 mmol/L (3.5-5.1); Total Protein 6.4 gm/dl (6.0-8.3)
[2023-01-06] MEDS: PROPRANOLOL HCL LA 80 MG CAPCR PO SCH (09:12)
[2023-01-06] MEDS: POLYETHYLENE (MIRALAX) 17 GM PACK PO SCH ×2 (09:13→20:33)
[2023-01-06] MEDS: oxyBUTYnin chloride 5 MG TAB PO SCH ×2 (09:13→20:31)
[2023-01-06] MEDS: SENNA 8.6 MG TAB PO SCH ×2 (09:13→20:30)
--- NOTE | 2023-01-06 12:01 | Surgery Progress Note ---
Date of Service January 06, 2023 Assessment & Plan (1) Ileus following gastrointestinal surgery: Plan: Overall slowly improving. Will advance diet to low fiber. Monitor to see if tolerates given how quickly her symptoms occurred after discharge last time. Admission and Anticipated Discharge Date Admission Date: January 03, 2023 Subjective Tolerating full liquid diet. Notes green stool in bag, Feels more distended/ gassy when up and walking. Abdomen is softer when laying down. Good pain control. No nausea. Physical Exam Respiratory: normal respiratory effort, lungs clear to auscultation Cardiovascular: RRR, no murmur, no edema Gastrointestinal (Abdomen): soft, nontender, nondistended, incision clean, ostomy viable with gas/ stool in bag, pos bowel tones Neurologic: awake; no focal motor deficits Results & Data Vital Signs (Past 12 Hours) Vital Signs Pulse Resp BP Pulse Ox O2 Del Method 01/06/23 08:25 69 18 107/59 L 98 Room Air Laboratory Results 01/06/23 01/06/23 01/05/23 Range/Units 05:11 05:11 07:42 WBC 5.49 (4.8-10.8) K/ul RBC 3.25 L (4.20-5.40) M/uL Hgb 10.6 L (12.0-16.0) g/dl Hct 31.1 L (37.0-47.0) % MCV 95.7 (80.0-100.0) fL MCH 32.6 (25.0-34.0) pg MCHC 34.1 (32.0-36.0) g/dL RDW Std Deviation 46.4 H (36.4-46.3) fL RDW Coeff of Janie 13.2 (11.5-14.5) % Plt Count 634 H (130-400) K/uL MPV 8.8 L (9.4-12.4) fL Immature Gran % (Auto) 0.7 % Neut % (Auto) 53.3 % Lymph % (Auto) 28.1 % Rankin % (Auto) 10.6 % Eos % (Auto) 6.6 % Baso % (Auto) 0.7 % Neut # (Auto) 2.93 (1.40-6.50) K/uL Lymph # (Auto) 1.54 (1.20-3.40) K/uL Rankin # (Auto) 0.58 (0.11-0.59) K/uL Eos # (Auto) 0.36 (0.00-0.50) K/uL Baso # (Auto) 0.04 (0.00-0.20) K/uL Immature Gran # (Auto) 0.04 (0.01-0.20) K/uL Sodium 137 137 (136-145) mmol/L Potassium 3.9 4.3 D (3.5-5.1) mmol/L Chloride 102 102 (98-107) mmol/L Carbon Dioxide 30 30 (21-32) mmol/L Anion Gap 5 5 (3-11) BUN 5 L 5 L (6-23) mg/dl Creatinine 0.68 0.68 (0.6-1.2) mg/dl Est Cr Clr Drug Dosing 88.5 88.5 ml/min Est GFR ( Amer) 107.9 107.9 ml/min Est GFR (Non-Af Amer) 93.1 93.1 ml/min BUN/Creatinine Ratio 7.4 L 7.4 L (10-20) Glucose 94 107 H (70-99(Fasting)) mg/dl Calcium 9.3 9.5 (8.6-10.3) mg/dl Total Bilirubin 0.4 0.5 (0.2-1.0) mg/dl AST 18 22 (13-39) U/L ALT 41 52 (7-52) U/L Alkaline Phosphatase 104 114 H (34-104) U/L Total Protein 6.4 6.9 (6.0-8.3) gm/dl Albumin 3.7 3.9 (3.4-5.0) gm/dl Globulin 2.7 3.0 (2.5-4.0) gm/dl Albumin/Globulin Ratio 1.4 1.3 (0.9-2) Diagnostic Findings KUB 01/05 shows ileus
[2023-01-06] MEDS: AMITRIPTYLINE HCL 50 MG TAB PO SCH (20:30)
[2023-01-07] MEDS: LEVOTHYROXINE SODIUM 25 MCG TABLET PO SCH (05:39)
[2023-01-07 07:40] LABS: Basophils # (auto) 0.05 K/uL (0.00-0.20); Eosinophils # (auto) 0.27 K/uL (0.00-0.50); Eosinophils % (auto) 5.5 %; Hematocrit (blood only) 32.5 % (37.0-47.0); Immature Granulocytes # (auto) 0.03 K/uL (0.01-0.20); Immature Granulocytes % (auto) 0.6 %; Lymphocytes # (auto) 1.27 K/uL (1.20-3.40); Lymphocytes % (auto) 25.7 %; Mean Corpuscular Hemoglobin 32.4 pg (25.0-34.0); Mean Corpuscular Hgb Conc 33.8 g/dL (32.0-36.0); Mean Corpuscular Volume 95.6 fL (80.0-100.0); Mean Platelet Volume 9.1 fL (9.4-12.4); Monocytes # (auto) 0.48 K/uL (0.11-0.59); Monocytes % (auto) 9.7 %; Neutrophils # (auto) 2.85 K/uL (1.40-6.50); Neutrophils % (auto) 57.5 %; Platelet Count 651 K/uL (130-400); RDW Coefficient of Variation 13.2 % (11.5-14.5); RDW Standard Deviation 45.7 fL (36.4-46.3); White Blood Count 4.95 K/ul (4.8-10.8)
[2023-01-07 07:59] LABS: Albumin Globulin Ratio 1.3 (0.9-2); Albumin Level 3.8 gm/dl (3.4-5.0); BUN Creatinine Ratio 10.9 (10-20); Bilirubin,Total 0.4 mg/dl (0.2-1.0); Calcium 9.5 mg/dl (8.6-10.3); Est GFR (African American) 110.1 ml/min; Potassium 4.1 mmol/L (3.5-5.1); Total Protein 6.8 gm/dl (6.0-8.3)
[2023-01-07] MEDS: POLYETHYLENE (MIRALAX) 17 GM PACK PO SCH ×2 (08:22→20:03)
[2023-01-07] MEDS: oxyBUTYnin chloride 5 MG TAB PO SCH ×2 (08:22→20:03)
[2023-01-07] MEDS: PROPRANOLOL HCL LA 80 MG CAPCR PO SCH (08:22)
[2023-01-07] MEDS: SENNA 8.6 MG TAB PO SCH ×2 (08:22→20:03)
--- NOTE | 2023-01-07 11:17 | Surgery Progress Note ---
Date of Service January 07, 2023 Assessment & Plan (1) Ileus following gastrointestinal surgery: Plan: Overall doing well but still with intermittent ileus symptoms with distention/ pain/ bloating that resolves after gas/ stool. Will keep in hospital today to allow for her to eat and see if she tolerates a few meals prior to discharge given that she returned with symptoms quickly after her first discharge. Admission and Anticipated Discharge Date Admission Date: January 03, 2023 Subjective Had an episode of severe cramping/ bloating/ pain yesterday after eating. Resolved after she passed gas and had more stool in the bag. Very worried about discharge given her symptoms yesterday. Does have gas/ stool in the ostomy bag. No nausea/ vomiting. Physical Exam Respiratory: normal respiratory effort, lungs clear to auscultation Cardiovascular: RRR, no murmur, no edema Gastrointestinal (Abdomen): normal bowel sounds, soft, nontender, no hepatosplenomegaly ostomy with gas/ stool in the bag, ostomy viable and incision is clean Neurologic: awake; no focal motor deficits Results & Data Vital Signs (Past 12 Hours) Vital Signs Temp Pulse Resp BP Pulse Ox O2 Del Method 01/07/23 08:10 36.8 C 97 H 18 107/68 99 Room Air
[2023-01-07] MEDS: ACETAMINOPHEN 325 MG TAB PO PRN (16:06)
[2023-01-07] MEDS: AMITRIPTYLINE HCL 50 MG TAB PO SCH (20:03)
[2023-01-08] MEDS: LEVOTHYROXINE SODIUM 25 MCG TABLET PO SCH (05:35)
--- NOTE | 2023-01-08 09:03 | Surgery Progress Note ---
Date of Service January 08, 2023 Assessment & Plan (1) H/O abdominal surgery: Plan: Seems to be doing okay. We will recheck her KUB this morning. If there is at least improvement we will likely discharge her this afternoon. She agrees with the plan. We will recheck on her later this morning after her KUB. (2) Ileus following gastrointestinal surgery: Admission and Anticipated Discharge Date Admission Date: January 03, 2023 Subjective Patient seen. No major complaints. She continues to have some soreness or what she calls "distention" near the ostomy. She is tolerating her low residue diet at this point. She has had no nausea or vomiting since admission Physical Exam Physical Exam: Alert. No acute distress Stoma is viable and functioning Mild abdominal tenderness. Results & Data Vital Signs (Past 12 Hours) Vital Signs Temp Pulse Resp BP BP Pulse Ox O2 Del Method 01/08/23 07:15 36.7 C 78 16 106/71 97 Room Air 01/07/23 22:01 104/62 PG Care Time/CCT Total # of Minutes Spent Total Time Spent with Patient: Total time spent is greater than 50% in coordination of care (as documented) at patient's floor/unit and/or counseling patient: Coding Level of Care Code 74087 Post Operative Follow-Up Diagnoses H/O abdominal surgery Z98.890 Ileus following gastrointestinal surgery K91.89; K56.7
[2023-01-08] MEDS: PROPRANOLOL HCL LA 80 MG CAPCR PO SCH (09:28)
[2023-01-08] MEDS: SENNA 8.6 MG TAB PO SCH (09:28)
[2023-01-08] MEDS: oxyBUTYnin chloride 5 MG TAB PO SCH (09:28)
[2023-01-08] MEDS: POLYETHYLENE (MIRALAX) 17 GM PACK PO SCH (09:32)
--- NOTE | 2023-01-08 09:38 | XRay Report ---
KUB CLINICAL HISTORY: eval bowel COMPARISON STUDY: CT of the abdomen and pelvis December 22, 2022. KUB January 05, 2023. FINDINGS: Left lower quadrant ostomy and skin evelina are present. The bowel gas pattern is normal. M oderate amount of stool is noted within the colon. IMPRESSION: 1. No evidence for a bowel obstruction. Unremarkable bowel gas pattern. 2. Moderate amount of stool within the colon. ACT 112: Negative or not required by law. Electronically signed by: Uday Gomez M.D. 01/08/2023 9:36 AM
--- NOTE | 2023-01-08 12:44 | Discharge Summary ---
Date of Service January 08, 2023 Principal Diagnosis Nausea and Vomiting Discharge Exam Constitutional well developed, cooperative and comfortable; no acute distress Respiratory normal respiratory effort and able to speak in complete sentences; no respiratory distress Cardiovascular Rate/Rhythm: regular rate Gastrointestinal (Abdomen) Inspection/Auscultation: + abdominal surgical incision (your evelina were removed today, no s/s of infection) Percussion/Palpation: abdomen soft functioning colostomy bag with brown liquid stool Discharge Data Allergies Allergy/AdvReac Type Severity Reaction Status Date / Time Sulfa (Sulfonamide Allergy Unknown severe Unverified 01/30/22 09:55 Antibiotics) headache levothyroxine AdvReac Unknown tachycardia Unverified 01/30/22 09:55 Ordered Studies 01/02/23 08:20 US gallbladder Stat Hospital Course (1) Ileus following gastrointestinal surgery: You presented to the [facility] ER 01/02/23 with complaints of nausea and vomiting since being discharged home 01/01/23 from a exploratory laparotomy, sigmoid colectomy, washout, and creation of ostomy that took placed on 12/22/22. You were admitted to the hospital and imaging showed a post operative ileus. You were started on a clear liquid diet and advanced to low fiber. You had no episodes of nausea or vomiting while in the hospital and had a KUB 01/08/23 that showed no evidence of bowel obstruction. Your colostomy has been working and putting out brown liquid stool. You are being discharged in stable condition and instructed to continue taking your stool softeners and continue a low fiber diet. You are to follow up with Dr. Santoyo in the office in 2 weeks. (2) Nausea & vomiting: Total Time Total Time Spent Total Time Spent (In Minutes): 20 Discharge Plan Discharge Items Patient Disposition: Home - Self-Care Reason For Visit: NAUSEA / VOMITING Discharge Diagnosis: nausea/vomiting Activity: Per Instructions section Lifting: No more than 25 pounds Lifting Comment: light activity over the next 2 weeks Bathing Comment: may shower; no soaking in tubs/pools x 2 weeks Exercise/Sports: Wait until after follow-up appointment Driving/Machine Use: no driving while taking any narcotics for pain Non-emergency contact: Surgeon Call non-emergency contact if: you have any medication questions, your pain is not controlled, you have a fever, your temperature is above 101.5, your wound has increased redness and your wound has increased drainage Follow-up/Referrals: Humphrey Santoyo DO [Surgeon] - 01/29/23 9:00 am (please call to schedule follow up in clinic within [address] Santoyo) Karl Fu DO [Primary Care Provider] - Diet: Low Fiber Addtl Attending Provider Instructions: please care for your ostomy as you have been instructed and taught on your previous admission continue on a low fiber diet until cleared by the surgeon, Stop your iron supplement. Please continue Miralax and your stool softener twice daily. Pending Studies at Discharge: No Stand-Alone Forms: My [facility], Pain - Opioid Pain Management Medications and DC Order Prescriptions: Continued propranolol 80 mg capsule,extended release 24 hr 80 mg PO DAILY Qty: 90 3RF turmeric root extract 500 mg capsule 500 mg PO BID cholecalciferol (vitamin D3) 25 mcg (1,000 unit) tablet,chewable 25 mcg PO DAILY Rx Instructions: takes 650 mg daily omega-3 fatty acids-fish oil [Fish Oil] 360-1,200 mg capsule 1 cap PO DAILY amitriptyline 25 mg tablet 50 mg PO HS Qty: 180 3RF oxybutynin chloride 5 mg tablet 5 mg PO BID Qty: 180 3RF levothyroxine [Synthroid] 25 mcg tablet 12.5 mcg PO QAM Rx Instructions: takes half tablet every morning oxycodone-acetaminophen [Percocet] 5-325 mg tablet 1 - 2 tab PO .q4-6h PRN (Reason: pain, for initial therapy, max 6 tabs per day) Qty: 15 0RF Discharge Orders: Discharge Order (Routine); Ordered 01/08/23 Ordered By: May Guevara/Other Patient Handouts: Ileus, Low-Fiber Diet Admission Data Admit Date/Time: 01/03/23 08:10 Attending Provider: Humphrey Santoyo Admit Provider: Humphrey Santoyo Primary Care Provider: Karl Fu Other Providers: Wheeler,Home Care Other Interventions: Discharge Summary Assessment (RN) Last Done: 01/08/23 11:40 Coding Level of Care Code 54619 IN/OBS DISCH 30 MIN/LESS Diagnoses Ileus following gastrointestinal surgery K91.89; K56.7 Nausea & vomiting R11.2 Vomiting type: unspecified
== END 2023-01-08 13:04 | disposition home health service (06) | DRG 394 ==
LOC: ED 05:56 → EDINP 05:56 → 3W 01-03 11:04
DX: Z79.890 Hormone replacement therapy; Y83.8 Other surgical procedures as the cause of abnormal reaction of the patient, or of later complication, without mention of misadventure at the time of the procedure; K91.89 Other postprocedural complications and disorders of digestive system; I10 Essential (primary) hypertension; K56.7 Ileus, unspecified; Z93.3 Colostomy status; M79.7 Fibromyalgia; E03.9 Hypothyroidism, unspecified; Y92.019 Unspecified place in single-family (private) house as the place of occurrence of the external cause; R11.2 Nausea with vomiting, unspecified; Z88.2 Allergy status to sulfonamides

== ENCOUNTER 2023-04-12 06:36 | Inpatient (IN) ==
--- NOTE | 2023-03-30 08:47 | Anesthesiology Consultation ---
Date of Service March 30, 2023 Assessment & Plan (1) Encounter for pre-operative examination: Chart Review Chart Review: Acceptable Risk for Surgery (pending cardio clearance appt 04/09/23) and Patient seen in Pre Admission Testing - Awaiting surgeon ordered preop cardio appt 04/09/23 ([place]) -Infectious Disease screening: Per PAT nursing assessment on 03/30/23. No known infectious disease contacts in past 10 days or current infectious disease symptoms. No recent travel outside the country. History Surgery Operation Date: 04/12/23 10:05 Proposed Procedures p Laparoscopic Reversal Kenia's Colostomy, Possible Open - Humphrey Santoyo, Height/Weight Height: 5 ft 9 in Weight: 69.4 kg Allergies Allergy/AdvReac Type Severity Reaction Status Date / Time Sulfa (Sulfonamide Allergy Unknown severe Verified 03/30/23 07:34 Antibiotics) headache Medications Home Medications Medication Instructions Recorded Confirmed Last Taken cholecalciferol (vitamin D3) 25 25 mcg PO DAILY 01/30/22 03/30/23 Unknown mcg (1,000 unit) chewable tablet omega-3 fatty acids-fish oil 360 1 cap PO DAILY 01/30/22 03/30/23 Unknown mg-1,200 mg capsule (Fish Oil) turmeric root extract 500 mg 500 mg PO BID 01/30/22 03/30/23 Unknown capsule multivitamin combination no.56 1 tab PO DAILY 01/09/23 03/30/23 Unknown cranberry 400 mg capsule 400 mg PO DAILY 01/11/23 03/30/23 Unknown oxybutynin chloride 5 mg tablet 5 mg PO BID #180 tabs 01/12/23 03/30/23 Unknown levothyroxine 25 mcg tablet 12.5 mcg (1/2 x 25 mcg) PO QAM 90 01/16/23 03/30/23 Unknown (Synthroid) days #45 tabs polyethylene glycol 3350 17 17 g PO BID #238 grams 01/31/23 03/30/23 Unknown gram/dose oral powder (Miralax) sennosides 8.6 mg tablet (Senokot) 8.6 mg PO BID #60 tabs 01/31/23 03/30/23 Unknown amitriptyline 25 mg tablet 12.5 mg PO HS 02/26/23 03/30/23 Unknown peg 3350-sod sulf,[id number] See Rx Instructions PO .COMPLEX #2 03/22/23 Unknown 178.7-7.3-0.5-1.12-0.9 gram oral mL soln (Suflave) propranolol 80 mg capsule,24 80 mg PO QAM 03/30/23 03/30/23 Unknown hr,extended release Past Medical History Medical History (Updated 03/30/23 @ 11:05 by Melia Bautista PA-C) Chiari malformation type I Decompression completed [address] Prediabetes diet controlled LBBB (left bundle branch block) Noted initially on 12/22/22 EKG- had subsequent ECHO and nuclear stress test No driver messenger at this time Hypomagnesemia Pneumatosis intestinalis of large intestine Noted on 12/22/22 abdomen/pelvis CT scan; admitted at [facility]- records showed patient had colon perforation- had subsequent " exploratory laparotomy, sigmoid colectomy, washout, and creation of ostomy " ; patient later admitted 01/02/23 with ileus Urinary frequency HTN (hypertension) Migraine Brachial plexus injury, left Mixed irritable bowel syndrome Asthma no issues since had sinus surgery Graves' disease Hypothyroid Past Family History Family History Father Myocardial infarction Bladder cancer Mother Skin cancer Alzheimer disease Denies family history of Ovarian cancer Prostate cancer Breast cancer Colorectal cancer Past Surgical History Surgical History History of colonoscopy Hx of knee surgery left cyst removed History of section x3 History of endoscopic sinus surgery History of bowel resection (12/22/22) Exploratory laparotomy, sigmoid colectomy, abdominal washout, colostomy - Humphrey Santoyo, DO S/[facility] (~1997) Social History Smoking Status: Former smoker Do You Dip or Chew Tobacco: No Smoking End Date: in college Hx Alcohol Use: No Alcohol type: wine alcohol intake frequency: 0-2 drinks per day Hx Substance Use: No substance use type: does not use Lab Results Anesthesia Preop Results Results Anesthesia Widget: WBC 5.0 Thousand/uL (3.8-10.8) 03/16/23 Hgb 13.7 g/dL (11.7-15.5) 03/16/23 Hct 39.8 % (35.0-45.0) 03/16/23 Plt 287 Thousand/uL (140-400) 03/16/23 Na 139 mmol/L (135-146) 03/16/23 K 4.2 mmol/L (3.5-5.3) 03/16/23 Cl 99 mmol/L (98-110) 03/16/23 CO2 31 mmol/L (20-32) 03/16/23 BUN 14 mg/dL (7-25) 03/16/23 Creat 0.81 mg/dL (0.50-1.05) 03/16/23 Glucose Level 105 mg/dL (65-139) 03/16/23 Testing Electrocardiogram Date: 01/02/23 Findings: + NSR @ (84bpm) Possible anterior septal infarct, age undetermined When compared EKG from December 27, 2022T wave inversion less evident in anterior leads per cardio Echocardiogram Date: 12/28/22 EF: 55-60% LV Function: normal RWMA: + none Other Findings: + diastolic dysfunction (Grade 1); no LVH Valvular Disease: + MR (Mild) Stress Test Date: 03/05/23 Type: nuclear Impression: 1. Negative myocardial perfusion study for ischemia. 2. Fixed septal/anteroseptal defects likely due to left bundle branch block. 3. Normal left ventricular systolic function. EF 60%. 4. Indeterminate Lexiscan ECG as left bundle branch block developed, likely rate related. Other Testing XR Abdomen 2V with PA chest 01/02/23= No acute process of the chest. Midline skin evelina with trace pneumoperitoneum, likely postoperative. Air-filled mildly dilated loops of large and small bowel suggestive of probable ileus. Follow-up recommended. (Admitted to [facility] at time of x ray)
[~2023-04-12 06:36] MED LIST changes: -AMT50; -ATV/1 PO; -CLON1TAB3 PO; -DIVA1TAB86 PO; -GABA-1218 PO; +HEPARIN SOD 5,000 UNIT/0.5 ML VIAL SQ SCH; +LACTATED RINGER'S 1,000 ML IV SCH; -LEVOTHYROXINE PO; -OMEP20CA59 PO; -OXYC-57 PO; -PRED-301 PO; -PROP80CA7 PO; -[UNRECOGNIZED DRUG - OTHER]; -[UNRECOGNIZED DRUG - OTHER]; +ceFAZolin 2000MG 2,000 MG/15 ML SYR IV SCH
--- NOTE | 2023-04-12 07:09 | History & Physical Report ---
Date of Service April 12, 2023 Assessment & Plan (1) Parastomal hernia without obstruction or gangrene: Plan: She is a candidate for reversal of her colostomy as well as repair of the hernia. Will attempt this primarily laparoscopically we discussed there may be a need to convert to an open technique. I Discussed this previously and in detail. I answered all of her questions and she agrees with the plan. We will proceed today with laparoscopic possible open reversal of her colostomy and repair of her parastomal hernia. (2) History of bowel resection: History of Present Illness Primary Care Provider: Karl Fu DO Martha is here for reversal of her colostomy as well as repair of her parastomal hernia. She had a colonoscopy 2 days ago which was essentially negative. She also underwent cardiac evaluation and is essentially cleared for surgery. Allergies Allergy/AdvReac Type Severity Reaction Status Date / Time Sulfa (Sulfonamide Allergy Unknown severe Verified 04/12/23 06:52 Antibiotics) headache Home Medications Medication Instructions Recorded Confirmed Type cholecalciferol (vitamin D3) 25 25 mcg PO DAILY 01/30/22 04/12/23 History mcg (1,000 unit) chewable tablet turmeric root extract 500 mg 500 mg PO BID 01/30/22 04/12/23 History capsule multivitamin combination no.56 1 tab PO DAILY 01/09/23 04/12/23 History cranberry 400 mg capsule 400 mg PO DAILY 01/11/23 04/12/23 History oxybutynin chloride 5 mg tablet 5 mg PO BID #180 tabs 01/12/23 04/12/23 Rx levothyroxine 25 mcg tablet 12.5 mcg (1/2 x 25 mcg) PO QAM 90 01/16/23 04/12/23 Rx (Synthroid) days #45 tabs peg 3350-sod sulf,[id number] See Rx Instructions PO .COMPLEX #2 03/22/23 04/12/23 Rx 178.7-7.3-0.5-1.12-0.9 gram oral mL soln (Suflave) propranolol 80 mg capsule,24 80 mg PO QAM 03/30/23 04/12/23 History hr,extended release omega-3 fatty acids-fish oil 360 1 cap PO BID 04/09/23 04/12/23 History mg-1,200 mg capsule (Fish Oil) Past Med/Surg History Medical History LBBB (left bundle branch block) Noted initially on 12/22/22 EKG- had subsequent ECHO and nuclear stress test No drapery hand at this time Chiari malformation type I Decompression completed [address] Prediabetes diet controlled Hypomagnesemia Pneumatosis intestinalis of large intestine Noted on 12/22/22 abdomen/pelvis CT scan; admitted at [facility]- records showed patient had colon perforation- had subsequent " exploratory laparotomy, sigmoid colectomy, washout, and creation of ostomy " ; patient later admitted 01/02/23 with ileus Urinary frequency HTN (hypertension) Migraine Brachial plexus injury, left Mixed irritable bowel syndrome Asthma no issues since had sinus surgery Graves' disease Hypothyroid Surgical History History of colonoscopy Hx of knee surgery left cyst removed History of section x3 History of endoscopic sinus surgery History of bowel resection (12/22/22) Exploratory laparotomy, sigmoid colectomy, abdominal washout, colostomy - Humphrey Santoyo DO S/P EZE-BSO (~1997) Family History Father Myocardial infarction Bladder cancer Mother Skin cancer Alzheimer disease Denies family history of Ovarian cancer Prostate cancer Breast cancer Colorectal cancer Social History Smoking Status: Former smoker Smoking End Date: in college; Second Hand Exposure: No; Do You Dip or Chew Tobacco: No; Tobacco Cessation Education Requested by Patient: No Hx Alcohol Use: No Hx Substance Use: No Preferred Language: Lao Communication Ability: Effective Visual Impairment: Limited Hearing Ability: Hard of Hearing Template Cutter Required: No Beliefs That Will Affect Care: None marital status: Current Living Situation: Spouse Current Living Situation Comment: , son lives 5 min away current occupational status: unemployed How many Children do You have: 3 Other Information That Helps Us Care for You: No Feels Safe at Home: Yes Safety Concerns: Feels Safe At This Time Childhood Exposure to Second-Hand Smoke: Yes Diet: regular Diet Comment: watching diet caffeine: Yes (2 coffees a day ) Dental Care, Regularly: Yes Physical Activity Frequency: Daily Physical Activity Frequency Comment: walks a lot Seatbelt Use: always Sunscreen Use: Yes (sometimes) Do you think of yourself as: straight/heterosexual Assistive Devices: Glasses Review of Systems All systems reviewed & are unremarkable except as noted in HPI & below Physical Exam Constitutional: WD/WN, vitals as above no acute distress and not ill appearing Eyes: PERRL, conjunctivae normal, anicteric sclerae EOM intact bilaterally ENMT: external ear and nose normal, oropharynx normal Ears: no hearing impairment Neck: trachea midline, no thyromegaly Respiratory: normal respiratory effort; no respiratory distress and does not use accessory muscles Cardiovascular: Rate/Rhythm: regular rate and regular rhythm Gastrointestinal (Abdomen): Soft. Nontender. Stoma intact and functioning. Parastomal hernia unchanged Skin: no rashes, warm and dry Psychiatric: Orientation: alert, oriented x 3 and cooperative
[2023-04-12] MEDS ORDERED: ONDANSETRON INJ 2 MG/ML 2 ML VIAL IV PRN ×2 (07:26→12:55)
[2023-04-12] MEDS ORDERED: PHENYLEPHRINE 100MCG/ML 5ML SYR IV PRN (07:26)
[2023-04-12] MEDS ORDERED: ATROPINE SULFATE 0.1 MG/ML 10ML SYR IV PRN (07:26)
[2023-04-12] MEDS ORDERED: LABETALOL HCL IV 5 MG/ML 20ML IV PRN (07:26)
[2023-04-12] MEDS ORDERED: ePHEDrine sulfate 50 MG/ML AMP IV PRN (07:26)
[2023-04-12] MEDS ORDERED: MIDAZOLAM HCL 1 MG/ML 2ML VIAL ONE (07:44)
[2023-04-12] MEDS ORDERED: PROPOFOL IV EMULSION 10 MG/ML 20 ML VIAL IV ONE (07:44)
[2023-04-12] MEDS ORDERED: fentaNYL citrate PF 100 MCG/2 ML VIAL ONE ×2 (07:44→09:04)
[2023-04-12] MEDS ORDERED: ONDANSETRON INJ 2 MG/ML 2 ML VIAL ONE (07:44)
[2023-04-12] MEDS ORDERED: SUGAMMADEX SODIUM 200 MG/2 ML VIAL IV ONE (07:44)
[2023-04-12] MEDS ORDERED: ROCURONIUM BROMIDE 10 MG/ML 5 ML VIAL IV ONE ×2 (07:44→08:55)
[2023-04-12] MEDS ORDERED: LIDOCAINE 2% 2 ML VIAL/AMP(20MG/ML) INFIL ONE (07:44)
[2023-04-12] MEDS ORDERED: DEXAMETHASONE SOD INJ 4 MG/ML VIAL ONE (07:44)
[2023-04-12] MEDS ORDERED: BUPIVACAINE/EPINEPHRINE 0.5% MPF 1:200,000 30 ML VIAL ONE (08:22)
[2023-04-12] MEDS ORDERED: PHENYLEPHRINE 100MCG/ML 10ML SYR IV ONE (09:49)
--- NOTE | 2023-04-12 11:11 | Post Operative Brief Note ---
PG Immediate Post Op with CF Date of Surgery April 12, 2023 Pre & Post Diagnosis Operation Date: 04/12/23 08:35 Pre-Op Diagnosis: Parastomal hernia without obstruction or gangrene, History of bowel resection Post-Op Diagnosis: Parastomal hernia without obstruction or gangrene, History of bowel resection I identified the patient and participated in the time-out.: Yes Procedure Operation Date: 04/12/23 08:35 Actual Procedures p Laparoscopic Reversal Kenia's Colostomy, extensive enterolysis, repair of parastomal hernia (Not Applicable) - Humphrey Santoyo DO Surgeon Humphrey Santoyo DO Home Extension Agent david Mckeon Estimated Blood Loss 50 Findings Consistent with Post-Op Diagnosis Specimens Specimen Description: No specimen per surgeon Drains Rios Catheter (16 south [place] 10mL Rios catheter inserted prior to procedure start by Jie Jiménez RN)
[2023-04-12] MEDS ORDERED: HYDROmorphone INJ 2 MG/ML SYR/VIAL ONE (11:17)
[2023-04-12] MEDS: fentaNYL citrate PF 100 MCG/2 ML VIAL IV PRN ×4 (11:49→12:04)
[2023-04-12] MEDS: HYDROmorphone INJ 1 MG/ML SYRINGE IV PRN ×4 (12:15→12:30)
--- NOTE | 2023-04-12 13:23 | Anesthesiology Progress Note ---
Date of Service April 12, 2023 Anesthesia Post Procedure Vital Signs Vital Signs: Temp Pulse Pulse Pulse Resp BP Pulse Ox 04/12/23 12:55 36.4 C L 54 L 16 119/70 96 04/12/23 12:40 36.5 C 50 L 14 108/62 100 04/12/23 12:30 45 L 14 128/73 100 04/12/23 12:20 48 L 14 116/63 100 04/12/23 12:10 45 L 14 121/67 96 04/12/23 12:00 51 L 16 130/72 99 04/12/23 11:50 54 L 14 135/81 96 04/12/23 11:40 50 L 14 119/65 100 04/12/23 11:30 36.6 C 66 18 121/70 98 04/12/23 06:57 36.8 C 59 L 20 128/62 99 O2 Del Method O2 Flow Rate 04/12/23 12:55 Nasal Cannula 2 04/12/23 12:40 Nasal Cannula 2 04/12/23 12:30 Nasal Cannula 2 04/12/23 12:20 Nasal Cannula 2 04/12/23 12:10 Nasal Cannula 2 04/12/23 12:00 Nasal Cannula 2 04/12/23 11:50 Nasal Cannula 2 04/12/23 11:40 Nasal Cannula 2 04/12/23 11:30 Room Air 04/12/23 06:57 Room Air Pain Intensity Bilateral Lower Abdomen: Pain Intensity: 3 Abdomen: Pain Intensity: 3 Transfer of Care Handoff Completed per policy Notes Mental Status: alert / awake / arousable Patient Amnestic to Procedure: Yes Nausea / Vomiting: adequately controlled Pain: adequately controlled and improving with treatment Airway Patency, RR, SpO2: stable & adequate BP & HR: stable & adequate Hydration State: stable & adequate Anesthetic Complications: no major complications apparent and Pt Satisfied with anesthetic care
[2023-04-12] MEDS: LACTATED RINGER'S 1,000 ML IV SCH ×2 (13:28→22:20)
[2023-04-12] MEDS: ACETAMINOPHEN 1,000 MG/100 ML VIAL IV SCH ×2 (13:36→22:18)
[2023-04-12] MEDS: HYDROmorphone INJ 0.5 MG/0.5 ML SYR IV PRN ×2 (14:51→20:21)
[2023-04-12] MEDS: ceFAZolin 2000MG 2,000 MG/15 ML SYR IV SCH ×2 (16:47→23:50)
--- NOTE | 2023-04-12 18:58 | Operative Report ---
PG Post Operative Report Pre & Post Diagnosis Operation Date: 04/12/23 08:35 Pre-Op Diagnosis: Parastomal hernia without obstruction or gangrene, History of bowel resection Post-Op Diagnosis: Parastomal hernia without obstruction or gangrene, History of bowel resection I identified the patient and participated in the time-out.: Yes Procedure Operation Date: 04/12/23 08:35 Actual Procedures p Laparoscopic Reversal Kenia's Colostomy, extensive enterolysis, repair of parastoma(Not Applicable) - Humphrey Santoyo DO Surgeon Humphrey Santoyo DO Inspector Canned Food Reconditioning david Mckeon Estimated Blood Loss 50 Findings Consistent with Post-Op Diagnosis Specimens none Description of Procedure After informed consent was obtained the patient was taken to the operating room and placed in supine position. After successful intubation a Rios catheter as well as nasogastric tube were placed. The patient was then placed into a low lithotomy position. The stoma itself was closed using 2-0 silk. The entire abdomen and perineum was sterilely prepped and draped in usual fashion. The arms had been tucked. I began with an upper midline incision with an 11 blade scalpel. This was carried down through the soft tissue using cautery. The anterior fascia was opened using cautery and two #0 Vicryl stay sutures were placed. Peritoneum was entered using blunt finger penetration. A finger sweep was performed and a 12 mm Elias trocar was placed. The abdomen was insufflated to 18 mmHg. Laparoscope was inserted and the abdomen examined 360 degrees. There were adhesions in the lower abdomen. There was also a large parastomal hernia. A right lower quadrant 5 mm trocar in the right mid abdomen 5 mm trocar were placed under direct vision. I began by taking down the adhesions using blunt dissection and sharp scissor lysis and small amounts of the harmonic scalpel. I was able to delineate the large bowel and I freed it up along the white line of Toldt up to and including the splenic flexure. I was also able to identify the rectal stump. Prolene sutures on either side were intact. I was able to use primarily blunt dissection with again small amount of harmonic scalpel to free up the rectal stump. At this point we desufflated the abdomen. I made an elliptical incision around her closed stoma. I used blunt dissection as well as cautery to come around the colostomy in 360 degrees. I was able to take down the hernia sac and use finger fractionation to completely free up the colon. I was able to easily deliver this out onto the abdomen. I was able to use a bowel clamp and then divided the distalmost portion of the colostomy. I divided such that she had good blood supply to the distal end. We grasped the edges with Allis clamps and used a sizer estimate the lumen size to be 28 mm. 2-0 silk was used to hand sew a pursestring. The anvil of a 28 mm stapler was placed into the end of the colon and secured using the pursestring. This was placed back into the abdominal cavity. We then changed our gloves. I freed up all the fascial edges of the parastomal hernia. I took down the hernia sac using cautery. I then primarily closed the defect using #1 PDS in running fashion. I started on either pole and ran them lateral to medial and secured the sutures in the midline of the defect. Next we re-insufflated the abdomen. I reinserted the laparoscope. We able to use sizers to come in through the rectal stump to the stapled end. We then placed the handle of the 28 mm circular stapler into the rectal stump. We deployed the spike anterior to her prior staple line. The left colon was very lax and was able to easily reach the handle. We connected the anvil to the handle and secured them together and fired the stapler creating a circular functional end-to-end anastomosis. Both donuts were intact. Again there was no tension on the anastomosis. I insufflated the rectal stump/anastomosis under water while clamping the colon proximal to the anastomosis. There was no evidence of an air leak. There was adequate hemostasis. Thorough irrigation of the pelvis was performed. No other abnormalities were identified. A 10 flat Jose-Esparza drain was placed into the pelvis and brought out through one of the trocar sites and secured to the skin using 1 PDS. All the trocars were removed and the abdomen desufflated. The fascia of the camera port was closed with an 0 Vicryl in a [id number] fashion. All the incisions were thoroughly irrigated and closed using skin evelina. Quarter inch Shirley drain was placed under the evelina of the colostomy incision. Silver dressings were applied. The patient was awakened extubated and transferred to recovery in stable condition. My nurse practitioner was present through the entire case was instrumental in assisting with running the camera , the anastomosis wound closure and dressing placement. I attest to the content of the Intraoperative Record and any orders documented therein. Any exceptions are noted below.
[2023-04-13] MEDS: LACTATED RINGER'S 1,000 ML IV SCH ×3 (06:37→21:37)
[2023-04-13] MEDS: LEVOTHYROXINE SODIUM 25 MCG TABLET PO SCH (06:38)
[2023-04-13] MEDS: ACETAMINOPHEN 1,000 MG/100 ML VIAL IV SCH ×3 (06:38→21:37)
[2023-04-13 07:20] LABS: Basophils # (auto) 0.02 K/uL (0.00-0.20); Basophils % (auto) 0.2 %; Eosinophils # (auto) 0.01 K/uL (0.00-0.50); Eosinophils % (auto) 0.1 %; Hematocrit (blood only) 35.7 % (37.0-47.0); Hemoglobin 12.3 g/dl (12.0-16.0); Immature Granulocytes # (auto) 0.03 K/uL (0.01-0.20); Immature Granulocytes % (auto) 0.3 %; Lymphocytes # (auto) 1.31 K/uL (1.20-3.40); Lymphocytes % (auto) 13.9 %; Mean Corpuscular Hemoglobin 31.3 pg (25.0-34.0); Mean Corpuscular Hgb Conc 34.5 g/dL (32.0-36.0); Mean Corpuscular Volume 90.8 fL (80.0-100.0); Mean Platelet Volume 10.7 fL (9.4-12.4); Monocytes # (auto) 0.94 K/uL (0.11-0.59); Monocytes % (auto) 9.9 %; Neutrophils # (auto) 7.14 K/uL (1.40-6.50); Neutrophils % (auto) 75.6 %; Platelet Count 214 K/uL (130-400); RDW Coefficient of Variation 12.3 % (11.5-14.5); RDW Standard Deviation 41.3 fL (36.4-46.3); Red Blood Count 3.93 M/uL (4.20-5.40); White Blood Count 9.45 K/ul (4.8-10.8)
[2023-04-13 07:37] LABS: BUN Creatinine Ratio 20.7 (10-20); Calcium 8.8 mg/dl (8.6-10.3); Creatinine Clr Calc Pharmacy 73.4 ml/min; Est GFR (African American) 88.3 ml/min; Est GFR (Non-African American) 76.2 ml/min; Potassium 3.8 mmol/L (3.5-5.1)
[2023-04-13] MEDS: HYDROmorphone INJ 0.5 MG/0.5 ML SYR IV PRN ×4 (07:43→20:50)
[2023-04-13] MEDS: PROPRANOLOL HCL LA 80 MG CAPCR PO SCH (08:14)
[2023-04-13] MEDS: POTASSIUM CHLORIDE / WTR 10 MEQ/100 ML PLCT IV SCH ×3 (09:08→11:17)
[2023-04-13] MEDS: ceFAZolin 2000MG 2,000 MG/15 ML SYR IV SCH (09:08)
--- NOTE | 2023-04-13 10:07 | Surgery Progress Note ---
Date of Service April 13, 2023 Assessment & Plan (1) H/O resection of large bowel: Plan: Patient reports burning abd pain, continue IV Tylenol and IV meds, Denies nausea, has NG tube , requesting to be removed, nursing may remove this 200cc output Denies cp, sob, flatus , bm, Has been NPO , continue IV fluids for hydration c/o mild burning rectal pain, order tucks pad PRN WBC wnl K+ 3.8 ordered 40MEQ to keep above 4 to try and prevent post op ileus VSS BP low , continue to hold BP meds Denies dizzy/ lightheadness SARAH draining sanguinous fluid 30/185cc in 12/24 hr Encouraged ambulation doing well so far mehul clears. stay on that until bowel fx pain control adequate. Dr. Tran covering for weekend if any problems. Admission and Anticipated Discharge Date Admission Date: April 12, 2023 Subjective Patient reports burning abd pain Denies nausea, has NG tube , requesting to be removed denies cp, sob, flatus , bm Review of Systems Constitutional: + chills (this AM); no fever Eyes: + corrective lenses Ear, Nose, Mouth, Throat: + sore throat Respiratory: no dyspnea Cardiovascular: no chest pain Gastrointestinal: + abdominal pain; no bloating, no nausea and no vomiting Genitourinary: no problem reported Musculoskeletal: no muscle weakness Integumentary: post operative sites covered with Acticoat, gauze, abd pad mediport tape Physical Exam Physical Exam: awake alert oriented pleasant Constitutional: well developed, cooperative and comfortable; no acute distress Respiratory: normal respiratory effort, lungs clear to auscultation normal respiratory effort and able to speak in complete sentences; no respiratory distress Auscultation: lungs clear to auscultation bilaterally Cardiovascular: RRR, no murmur, no edema Gastrointestinal (Abdomen): Inspection/Auscultation: normal bowel sounds, + abdominal surgical incision and + abdominal surgical drain present (SARAH); abdomen not distended Percussion/Palpation: + abdomen tender and abdomen soft; no guarding Musculoskeletal: no cyanosis or clubbing, extremities motor strength 5/5 Results & Data Vital Signs (Past 12 Hours) Vital Signs Temp Pulse Resp BP BP Pulse Ox O2 Del Method 04/13/23 07:56 98.1 F 59 L 16 99/60 L 99 Room Air 04/13/23 02:58 97.9 F 57 L 18 96/52 L 98 Room Air 04/12/23 23:00 97.9 F 62 18 135/65 18 L Room Air PG Care Time/CCT Total # of Minutes Spent Total Time Spent with Patient: Total time spent is greater than 50% in coordination of care (as documented) at patient's floor/unit and/or counseling patient: Coding Level of Care Code 94363 Post Operative Follow-Up Diagnoses H/O resection of large bowel Z90.49
[2023-04-14] MEDS: ACETAMINOPHEN 1,000 MG/100 ML VIAL IV SCH ×3 (05:38→21:32)
[2023-04-14] MEDS: LEVOTHYROXINE SODIUM 25 MCG TABLET PO SCH (05:38)
[2023-04-14] MEDS: LACTATED RINGER'S 1,000 ML IV SCH ×3 (05:40→21:36)
[2023-04-14] MEDS: HYDROmorphone INJ 0.5 MG/0.5 ML SYR IV PRN (07:32)
[2023-04-14 07:52] LABS: Basophils # (auto) 0.01 K/uL (0.00-0.20); Basophils % (auto) 0.1 %; Eosinophils # (auto) 0.15 K/uL (0.00-0.50); Hematocrit (blood only) 31.4 % (37.0-47.0); Hemoglobin 10.8 g/dl (12.0-16.0); Immature Granulocytes # (auto) 0.03 K/uL (0.01-0.20); Immature Granulocytes % (auto) 0.4 %; Lymphocytes # (auto) 0.81 K/uL (1.20-3.40); Lymphocytes % (auto) 10.9 %; Mean Corpuscular Hemoglobin 30.8 pg (25.0-34.0); Mean Corpuscular Hgb Conc 34.4 g/dL (32.0-36.0); Mean Corpuscular Volume 89.5 fL (80.0-100.0); Mean Platelet Volume 10.5 fL (9.4-12.4); Monocytes # (auto) 0.77 K/uL (0.11-0.59); Monocytes % (auto) 10.4 %; Neutrophils # (auto) 5.65 K/uL (1.40-6.50); Neutrophils % (auto) 76.2 %; Platelet Count 208 K/uL (130-400); RDW Coefficient of Variation 12.4 % (11.5-14.5); RDW Standard Deviation 40.5 fL (36.4-46.3); Red Blood Count 3.51 M/uL (4.20-5.40); White Blood Count 7.42 K/ul (4.8-10.8)
[2023-04-14 07:57] LABS: BUN Creatinine Ratio 14.5 (10-20); Calcium 8.5 mg/dl (8.6-10.3); Creatinine Clr Calc Pharmacy 109.4 ml/min; Est GFR (African American) 115.7 ml/min; Est GFR (Non-African American) 99.8 ml/min; Potassium 3.8 mmol/L (3.5-5.1)
[2023-04-14] MEDS: PROPRANOLOL HCL LA 80 MG CAPCR PO SCH (08:08)
--- NOTE | 2023-04-14 09:45 | Surgery Progress Note ---
Date of Service April 14, 2023 Assessment & Plan (1) H/O resection of large bowel: Plan: Patient is approximately 48 hours postop laparoscopic reversal of Hernandez procedure She is doing very well minimal abdominal discomfort At this point discussed with the patient and her may take another 24 hours or so before we normally see some GI function return For today I will keep her on light diet Increase activity as tolerated Plan Increase activity as tolerated Advance diet slowly Admission and Anticipated Discharge Date Admission Date: April 12, 2023 Subjective The patient overall feels fine she denies any nausea and taking some clears stated had some flatus but no bowel movement yet no really significant abdominal pain Physical Exam Physical Exam: Alert coherent Oral mucosa moist The abdomen the dressings are intact soft with minimal guarding appreciated Ghanshyam drainage serous sanguinous drainage minimal Results & Data Vital Signs (Past 12 Hours) Vital Signs Temp Pulse Resp BP Pulse Ox O2 Del Method 04/14/23 07:30 36.7 C 74 18 137/73 97 Room Air
[2023-04-15] MEDS: LACTATED RINGER'S 1,000 ML IV SCH (05:28)
[2023-04-15] MEDS: LEVOTHYROXINE SODIUM 25 MCG TABLET PO SCH (05:29)
[2023-04-15] MEDS: ACETAMINOPHEN 1,000 MG/100 ML VIAL IV SCH (05:29)
[2023-04-15 07:38] LABS: Basophils # (auto) 0.02 K/uL (0.00-0.20); Basophils % (auto) 0.3 %; Eosinophils # (auto) 0.28 K/uL (0.00-0.50); Eosinophils % (auto) 4.6 %; Hematocrit (blood only) 32.3 % (37.0-47.0); Hemoglobin 10.9 g/dl (12.0-16.0); Immature Granulocytes # (auto) 0.01 K/uL (0.01-0.20); Immature Granulocytes % (auto) 0.2 %; Lymphocytes # (auto) 0.74 K/uL (1.20-3.40); Lymphocytes % (auto) 12.2 %; Mean Corpuscular Hgb Conc 33.7 g/dL (32.0-36.0); Mean Corpuscular Volume 91.8 fL (80.0-100.0); Mean Platelet Volume 10.4 fL (9.4-12.4); Monocytes # (auto) 0.66 K/uL (0.11-0.59); Monocytes % (auto) 10.9 %; Neutrophils # (auto) 4.34 K/uL (1.40-6.50); Neutrophils % (auto) 71.8 %; Platelet Count 201 K/uL (130-400); RDW Coefficient of Variation 12.4 % (11.5-14.5); RDW Standard Deviation 41.4 fL (36.4-46.3); Red Blood Count 3.52 M/uL (4.20-5.40); White Blood Count 6.05 K/ul (4.8-10.8)
[2023-04-15 08:08] LABS: BUN Creatinine Ratio 9.8 (10-20); Calcium 8.4 mg/dl (8.6-10.3); Est GFR (African American) 118.6 ml/min; Est GFR (Non-African American) 102.3 ml/min; Potassium 3.4 mmol/L (3.5-5.1)
[2023-04-15] MEDS: PROPRANOLOL HCL LA 80 MG CAPCR PO SCH (08:15)
--- NOTE | 2023-04-15 12:49 | Surgery Progress Note ---
Date of Service April 15, 2023 Assessment & Plan (1) H/O resection of large bowel: Plan: Patient is approximately 3 days status post laparoscopic assisted takedown of colostomy The patient is doing very well she is tolerating clear liquid diet and she would like it advanced although she was still like to stay on liquids at this time Will leave the drains in for now and let Dr. Santoyo manage Plan Will increase to full liquid diet Add potassium p.o. today and recheck tomorrow Increase activity Admission and Anticipated Discharge Date Admission Date: April 12, 2023 Subjective Overall she feels well she has been up and around she has had bowel movements liquid although slightly formed she denies any significant pain she is tolerating the liquid diet The 1 episode of emesis yesterday is completely resolved Physical Exam Physical Exam: Alert coherent significant other at bedside The abdominal dressing was removed the Franck in the subcutaneous transverse left lower quadrant incision with minimal drainage there is no redness in the incision the evelina are intact The Ghanshyam drainage in the right lower quadrant exit site serosanguineous nonpurulent or fecal The abdomen is completely benign Results & Data Vital Signs (Past 12 Hours) Vital Signs Temp Pulse Resp BP Pulse Ox O2 Del Method 04/15/23 07:34 36.7 C 73 16 111/67 96 Room Air Laboratory Results Potassium noted
[2023-04-15] MEDS ORDERED: POTASSIUM CHLORIDE CRTAB 20 MEQ TABCR PO STA (12:51)
[2023-04-15 14:09] LABS: Basophils # (auto) 0.02 K/uL (0.00-0.20); Basophils % (auto) 0.4 %; Eosinophils # (auto) 0.31 K/uL (0.00-0.50); Eosinophils % (auto) 5.4 %; Hematocrit (blood only) 32.5 % (37.0-47.0); Hemoglobin 10.9 g/dl (12.0-16.0); Immature Granulocytes # (auto) 0.01 K/uL (0.01-0.20); Immature Granulocytes % (auto) 0.2 %; Lymphocytes # (auto) 0.87 K/uL (1.20-3.40); Lymphocytes % (auto) 15.3 %; Mean Corpuscular Hgb Conc 33.5 g/dL (32.0-36.0); Mean Corpuscular Volume 92.3 fL (80.0-100.0); Mean Platelet Volume 10.3 fL (9.4-12.4); Monocytes # (auto) 0.58 K/uL (0.11-0.59); Monocytes % (auto) 10.2 %; Neutrophils % (auto) 68.5 %; Platelet Count 214 K/uL (130-400); RDW Coefficient of Variation 12.4 % (11.5-14.5); Red Blood Count 3.52 M/uL (4.20-5.40); White Blood Count 5.69 K/ul (4.8-10.8)
[2023-04-15] MEDS: HYDROmorphone INJ 0.5 MG/0.5 ML SYR IV PRN (17:56)
[2023-04-16] MEDS: LEVOTHYROXINE SODIUM 25 MCG TABLET PO SCH (06:07)
[2023-04-16 07:34] LABS: Basophils # (auto) 0.03 K/uL (0.00-0.20); Basophils % (auto) 0.6 %; Eosinophils # (auto) 0.33 K/uL (0.00-0.50); Eosinophils % (auto) 6.3 %; Hematocrit (blood only) 34.6 % (37.0-47.0); Hemoglobin 11.7 g/dl (12.0-16.0); Immature Granulocytes # (auto) 0.01 K/uL (0.01-0.20); Immature Granulocytes % (auto) 0.2 %; Lymphocytes # (auto) 0.96 K/uL (1.20-3.40); Lymphocytes % (auto) 18.4 %; Mean Corpuscular Hemoglobin 30.9 pg (25.0-34.0); Mean Corpuscular Hgb Conc 33.8 g/dL (32.0-36.0); Mean Corpuscular Volume 91.3 fL (80.0-100.0); Mean Platelet Volume 10.3 fL (9.4-12.4); Monocytes # (auto) 0.54 K/uL (0.11-0.59); Monocytes % (auto) 10.3 %; Neutrophils # (auto) 3.36 K/uL (1.40-6.50); Neutrophils % (auto) 64.2 %; Platelet Count 239 K/uL (130-400); RDW Coefficient of Variation 12.5 % (11.5-14.5); RDW Standard Deviation 42.3 fL (36.4-46.3); Red Blood Count 3.79 M/uL (4.20-5.40); White Blood Count 5.23 K/ul (4.8-10.8)
[2023-04-16] MEDS: HYDROmorphone INJ 0.5 MG/0.5 ML SYR IV PRN (07:42)
[2023-04-16] MEDS: PROPRANOLOL HCL LA 80 MG CAPCR PO SCH (07:46)
[2023-04-16 07:49] LABS: BUN Creatinine Ratio 8.5 (10-20); Calcium 9.4 mg/dl (8.6-10.3); Est GFR (African American) 113.1 ml/min; Est GFR (Non-African American) 97.5 ml/min
--- NOTE | 2023-04-16 08:46 | Surgery Progress Note ---
Date of Service April 16, 2023 Assessment & Plan (1) History of colostomy reversal: Plan: Doing well. Will keep her on full liquids for now. She is having bowel movements. Will change her pain medication to oral. If she does okay we will consider discharge tomorrow. Admission and Anticipated Discharge Date Admission Date: April 12, 2023 Subjective Patient seen. Overall doing well although she is having some pain at her prior colostomy site. No nausea or vomiting is tolerating full liquids Physical Exam Physical Exam: Alert. No acute distress Abdomen soft with expected tenderness. Incisions look good with no sign of in fection Results & Data Vital Signs (Past 12 Hours) Vital Signs Temp Pulse Resp BP Pulse Ox O2 Del Method 04/16/23 07:48 Room Air 04/16/23 07:16 36.5 C 58 L 16 113/74 98 Room Air PG Care Time/CCT Total # of Minutes Spent Total Time Spent with Patient: Total time spent is greater than 50% in coordination of care (as documented) at patient's floor/unit and/or counseling patient: Coding Level of Care Code 70586 Post Operative Follow-Up Diagnoses History of colostomy reversal Z98.890
[2023-04-16] MEDS ORDERED: oxyCODONE/ACETAMINOPHEN 5mg/325mg TAB PO PRN (09:33)
[2023-04-16] MEDS: IBUPROFEN 600 MG TAB PO SCH ×2 (10:32→17:49)
[2023-04-16] MEDS ORDERED: POTASSIUM CHLORIDE CRTAB 20 MEQ TABCR PO STA (15:38)
[2023-04-16] MEDS: oxyCODONE/ACETAMINOPHEN 5mg/325mg TAB PO PRN (18:37)
[2023-04-17] MEDS: oxyCODONE/ACETAMINOPHEN 5mg/325mg TAB PO PRN ×3 (00:03→10:50)
[2023-04-17] MEDS: IBUPROFEN 600 MG TAB PO SCH ×2 (02:02→09:51)
[2023-04-17] MEDS: LEVOTHYROXINE SODIUM 25 MCG TABLET PO SCH (05:35)
[2023-04-17 06:57] LABS: Basophils # (auto) 0.05 K/uL (0.00-0.20); Eosinophils % (auto) 7.8 %; Hematocrit (blood only) 36.6 % (37.0-47.0); Hemoglobin 12.4 g/dl (12.0-16.0); Immature Granulocytes # (auto) 0.03 K/uL (0.01-0.20); Immature Granulocytes % (auto) 0.6 %; Lymphocytes # (auto) 1.31 K/uL (1.20-3.40); Lymphocytes % (auto) 25.4 %; Mean Corpuscular Hemoglobin 31.4 pg (25.0-34.0); Mean Corpuscular Hgb Conc 33.9 g/dL (32.0-36.0); Mean Corpuscular Volume 92.7 fL (80.0-100.0); Mean Platelet Volume 10.2 fL (9.4-12.4); Monocytes # (auto) 0.56 K/uL (0.11-0.59); Monocytes % (auto) 10.9 %; Neutrophils # (auto) 2.81 K/uL (1.40-6.50); Neutrophils % (auto) 54.3 %; Platelet Count 250 K/uL (130-400); RDW Coefficient of Variation 12.5 % (11.5-14.5); RDW Standard Deviation 42.5 fL (36.4-46.3); Red Blood Count 3.95 M/uL (4.20-5.40); White Blood Count 5.16 K/ul (4.8-10.8)
[2023-04-17 07:59] LABS: Calcium 9.7 mg/dl (8.6-10.3); Potassium 3.9 mmol/L (3.5-5.1)
[2023-04-17 08:05] LABS: BUN Creatinine Ratio 10.3 (10-20); Creatinine Clr Calc Pharmacy 103.8 ml/min; Est GFR (African American) 113.7 ml/min; Est GFR (Non-African American) 98.1 ml/min
[2023-04-17] MEDS: PROPRANOLOL HCL LA 80 MG CAPCR PO SCH (08:12)
--- NOTE | 2023-04-17 08:31 | Surgery Progress Note ---
Date of Service April 17, 2023 Assessment & Plan (1) History of colostomy reversal: Plan: She is doing well. I think she is okay for discharge. Verbal and written instructions given. I would like to see her in about 1 week for follow-up Admission and Anticipated Discharge Date Admission Date: April 12, 2023 Subjective Patient seen. Feeling okay other than some discomfort at her prior colostomy site. She is eating and bowels are moving Physical Exam Physical Exam: Alert no acute distress All of her incisions look great. No drainage or sign of infection Results & Data Vital Signs (Past 12 Hours) Vital Signs Temp Pulse Resp BP Pulse Ox O2 Del Method 04/17/23 07:36 36.6 C 57 L 20 118/63 97 Room Air 04/16/23 21:20 36.6 C 51 L 16 105/67 97 Room Air PG Care Time/CCT Total # of Minutes Spent Total Time Spent with Patient: Total time spent is greater than 50% in coordination of care (as documented) at patient's floor/unit and/or counseling patient: Coding Level of Care Code 80674 Post Operative Follow-Up Diagnoses History of colostomy reversal Z98.890
[2023-04-17] MEDS ORDERED: POTASSIUM CHLORIDE CRTAB 20 MEQ TABCR PO STA (09:16)
--- NOTE | 2023-04-17 10:10 | Discharge Summary ---
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 She had a colonoscopy 2 days ago which was essentially negative. She also underwent cardiac evaluation and is essentially cleared for surgery. Principal Diagnosis Reversal of Kenia's Discharge Exam awake alert oriented pleasant Constitutional well developed, cooperative and comfortable; no acute distress Respiratory normal respiratory effort, lungs clear to auscultation normal respiratory effort and able to speak in complete sentences; no respiratory distress Auscultation: lungs clear to auscultation bilaterally Cardiovascular RRR, no murmur, no edema Gastrointestinal (Abdomen) Inspection/Auscultation: normal bowel sounds and + abdominal surgical incision; abdomen not distended Percussion/Palpation: + abdomen tender and abdomen soft; no guarding Musculoskeletal no cyanosis or clubbing, extremities motor strength 09/15 Discharge Data Allergies Allergy/AdvReac Type Severity Reaction Status Date / Time Sulfa (Sulfonamide Allergy Unknown severe Verified 04/12/23 06:52 Antibiotics) headache Procedures Performed Operation Date: 04/12/23 08:35 Actual Procedures p Laparoscopic Reversal Kenia's Colostomy, extensive enterolysis, repair of parastoma(Not Applicable) - Humphrey Santoyo, DO Hospital Course (1) History of colostomy reversal: Patient underwent an elective Laparoscopic Reversal Kenia's Colostomy, extensive enterolysis, repair of parastoma on 04/12/[address] Santoyo. She was admitted to the hospital for post operative evaluation and care. She had a amaya catheter that was removed on post operative day 1. She started voiding without difficulty. She started passing flatus and having bowel movements She was started on a clear liquid diet and advanced to full liquid. She had a SARAH drain that was removed on post operative day 4 and dimple drain removed on post operative day 5. Her pain was controllable with PO pain medication. Her vital signs and post operative exams remained stable throughout her entire hospital course. She was deemed stable for discharge on post operative day 5, 04/17/23. She verbalized understanding of return precautions, diets, and follow appointments. Total Time Total Time Spent Total Time Spent (In Minutes): 30 Discharge Plan Discharge Items Patient Disposition: Home - Self-Care Reason For Visit: POST OP HARTMANS REVERSAL Discharge Diagnosis: Laparoscopic Reversal Kenia's Colostomy, Possible Open Activity: As commented below Lifting: No more than 10 pounds Bathing Comment: you can shower, no pools or baths for two weeks Exercise/Sports: Wait until after follow-up appointment Non-emergency contact: Surgeon Call non-emergency contact if: you have any medication questions, your pain is unusual for you, your temperature is above 101.5, your wound has increased redness, your wound has increased drainage and your wound pain has increased Follow-up/Referrals: Humphrey Santoyo DO [Surgeon] - 04/23/23 9:00 am (call office for follow up in 2 weeks ) Karl Fu DO [Primary Care Provider] - Diet: Full liquid and Low Fiber Addtl Attending Provider Instructions: You have evelina that will need to come out at your follow up appointment. Please keep surgical area clean and dry. You can apply gauze and tape for comfort, Change your dressing daily. You may transition from a full liquid to a low fiber diet at home. Pending Studies at Discharge: No Stand-Alone Forms: [facility], Pain - Opioid Pain Management Medications and DC Order Prescriptions: New oxycodone-acetaminophen 5-325 mg tablet 1 - 2 tab PO .E1w-U3p MDD Max 6 tabs per day PRN (Reason: pain) Qty: 15 0RF Rx Instructions: Take one to two tablets every 4-6 hours as needed for pain Continued levothyroxine [Synthroid] 25 mcg tablet 12.5 mcg PO QAM 90 Days Qty: 45 3RF Rx Instructions: takes half tablet every morning Suflave 178.7-7.3-0.5 gram recon soln See Rx Instructions PO .COMPLEX Qty: 2 0RF Rx Instructions: orally; TAKE FIRST DOSE AT 6 PM AND SECOND DOSE 6 HOURS PRIOR TO PROCEDURE BIN: [id number] PCN: CN GROUP: [id number] cranberry 400 mg capsule 400 mg PO DAILY Rx Instructions: administer with a meal oxybutynin chloride 5 mg tablet 5 mg PO BID Qty: 180 3RF turmeric root extract 500 mg capsule 500 mg PO BID cholecalciferol (vitamin D3) 25 mcg (1,000 unit) tablet,chewable 25 mcg PO DAILY Rx Instructions: takes 650 mg daily omega-3 fatty acids-fish oil [Fish Oil] 360-1,200 mg capsule 1 cap PO BID multivitamin combination no.56 Tablet,Chewable 1 tab PO DAILY propranolol 80 mg capsule,extended release 24hr 80 mg PO QAM Discharge Orders: Discharge Order (Routine); Ordered 04/17/23 Ordered By: May Guevara/Other Patient Handouts: Low-Fiber Diet Admission Data Admit Date/Time: 04/12/23 11:19 Attending Provider: Humphrey Santoyo Admit Provider: Humphrey Santoyo Primary Care Provider: Karl Fu Other Interventions: Discharge Summary Assessment (RN) Last Done: 04/17/23 09:52 Coding Level of Care Code 26412 IN/OBS DISCH 30 MIN/LESS Diagnoses History of colostomy reversal Z98.890
== END 2023-04-17 12:11 | disposition home or self-care (01) | DRG 337 ==
LOC: ASU 06:36 → 3E 11:19